=== PATIENT | male | born 1940 | race Caucasian/White ===

== ENCOUNTER → 2020-11-29 00:18 | Outpatient (CLI) | payer MEDICARE, SELFPAY ==
[2020-11-29 18:42] LABS: SARS-CoV-2 RNA PCR Negative
== END ==
PROVIDERS: PCP Family Medicine; Visit Provider Specialist
DX: Z01.812 Encounter for preprocedural laboratory examination (principal); Z20.822 Contact with and (suspected) exposure to COVID-19
CPT/HCPCS: C9803; U0003; U0005

== ENCOUNTER 2020-12-02 00:58 | Day surgery (SDC) | payer MEDICARE, SELFPAY ==
[2020-11-29 14:23] VITALS: BMI 27.8
[2020-12-02] VITALS (26 sets, daily range): BP systolic 128–168; BP diastolic 57–85; PULSE 48–76; RESP 14–20; TEMP 36.1–36.9; O2SAT 94–100; BMI 28.3; BMI 29.4
[2020-12-02 09:03] LABS: Basophils Percent Auto 0.4 % (0.2-1.2); Eosinophils Absolute Auto 0.5 K/mm3 (0-0.3); Eosinophils Percent Auto 6.7 % (0-4.4); Hematocrit 48.1 % (42.0-52.0); Hemoglobin 16.2 g/dL (14.0-18.0); Immature Granulocyte Absolute 0.02 K/mm3 (0.00-0.031); Immature Granulocyte Percent A 0.3 % (0-0.5); Lymphocytes Percent Auto 25.6 % (18.3-44.2); Mean Corpuscular HGB Conc 33.7 g/dl (32-36); Mean Corpuscular Hemoglobin 32.7 pg (26-34); Mean Platelet Volume 9.8 fl (7.4-10.4); Monocytes Percent Auto 13.5 % (2.6-8.5); Neutrophils Percent Auto 53.5 % (45.5-73.1); Platelet Count Result 196 k/mm3 (150-375); Red Blood Count 4.96 M/mm3 (4.6-6.20); Red Cell Distribution Width 12.4 % (11.5-14.5); White Blood Count 7.4 K/mm3 (4.5-10.0)
[2020-12-02 09:12] LABS: Prothrombin Time 13.5 Seconds (11.1-14.7)
[2020-12-02 09:15] LABS: Anion Gap 4 mmol/L (8-16); Blood Urea Nitrogen 21 mg/dL (9-20); Calcium 9.7 mg/dL (8.4-10.2); Carbon Dioxide 29 mmol/L (22-30); Chloride 106 mmol/L (98-107); Estimated CRCL calculation 55 ml/min; Estimated Glomerular Filt Rate > 60; Glucose 104 mg/dL (75-110); Potassium 4.3 mmol/L (3.4-5.0); Sodium 139 mmol/L (137-145)
--- NOTE | 2020-12-02 10:04 | WPDMODSED ---
Moderate Sedation Note-Pt Data Patient Data Diagnosis: Exertional chest pain consistent with angina Coronary artery disease with previous RCA intervention Present Complaint: This is a 80-year-old man with a remote history of right coronary revascularization percutaneously. He was seen in the office recently reporting typical symptoms of exertional angina. Procedure to be performed/Plan: Left heart catheterization Allergies Allergy/AdvReac Type Severity Reaction Status Date / Time cefuroxime Allergy Unknown Unknown Verified 07/03/20 10:08 Home Medications Medication Instructions Recorded Confirmed Type dutasteride 0.5 mg-tamsulosin ER See Rx Instructions .ROUTE 11/06/19 11/29/20 Rx 0.4 mg capsule ext.release 24hr .COMPLEX #90 cap mphas ipratropium bromide 42 mcg (0.06 See Rx Instructions .ROUTE 11/06/19 11/29/20 Rx %) nasal spray .COMPLEX #135 ml amlodipine 5 mg tablet 5 mg PO DAILY 01/01/20 11/29/20 History aspirin 81 mg tablet,delayed 81 mg PO DAILY 01/01/20 11/29/20 History release azelastine 205.5 mcg (0.15 %) 205.5 mcg NASAL DAILY 01/01/20 11/29/20 History nasal spray fluticasone propionate 50 1 spray NASAL DAILY 01/01/20 11/29/20 History mcg/actuation nasal spray,suspension pitavastatin calcium 1 mg tablet 1 mg PO DAILY 01/01/20 11/29/20 History dutasteride 0.5 mg capsule See Rx Instructions .ROUTE 03/26/20 11/29/20 Rx .COMPLEX #90 cap tamsulosin 0.4 mg capsule See Rx Instructions .ROUTE 03/26/20 Rx .COMPLEX #90 cap montelukast 10 mg tablet See Rx Instructions .ROUTE 07/01/20 11/29/20 Rx .COMPLEX #90 tablet L.acidophil-L.casei-B.bifid-B.longum-FOS 1 cap PO DAILY 07/03/20 11/29/20 History 2 billion cell-50 mg capsule metoprolol succinate 25 mg 12.5 mg PO DAILY tablet 07/03/20 11/29/20 History tablet,extended release 24 hr vcuxprtd-yuu-xnvpk acid 300 1 tablet PO DAILY 07/03/20 11/29/20 History mcg-lycopene 600 mcg-lutein 300 mcg tablet pantoprazole 20 mg tablet,delayed 40 mg PO QAM tablet 07/03/20 11/29/20 History release Current Medications: Active Medications Sodium Chloride (Normal Saline Iv) 500 mls @ 100 mls/hr IV CONT .Q5H SILVIANO Sedation/Anesthesia: No previous sedation/anesthesia problems (including family history). [facility] Past Medical History Medical History BPH w/o urinary obs/LUTS CAD in [place] artery Chronic low back pain without sciatica Dyslipidemia Essential (primary) hypertension GERD without esophagitis Heart attack 02/07/2000 Liver cyst 07/2018 Non-seasonal allergic rhinitis Renal cyst Sensorineural hearing loss Vitamin D deficiency Surgical History Surgical History History of coronary artery stent placement (~1999) 1999 History of hernia repair (~1990) 1990 - History of nasal surgery (~2004) 2004 & 05/2019 Hx of cataract surgery (Unknown) Hx of inguinal herniorrhaphy (~1990) 1990 Social History Social History Smoking status: Former smoker Second hand tobacco smoke exposure: No Smoking end date: 07/26/81 Alcohol intake: current Substance use: never Substance use type: does not use Living arrangements: with family Gender identity (if verbalized by the patient): Male Spiritual care concerns: No Mod Sed Physical Exam Physical Exam Pre Procedural Exam: Normal: Appearance, Throat, Airway, Lungs, Heart Size, Heart Rate, Heart Rhythm, Neuro Exam and Extremities Hours since solid foods: 12 Hours since liquid intake: 12 Internal Medicine - PN: Obj Da Vital Signs Vital Signs: Vital Signs - 24 hr 12/02/20 09:04 Temperature 36.1 C L Pulse Rate 48 L Respiratory Rate 16 Blood Pressure 155/67 H Pulse Oximetry 97 Meds/Results Medications: Active Medications Generic Name Dose Route Start Last Admin Trade Name Freq [place]
--- NOTE | 2020-12-02 11:31 | WPDCARDPROC ---
Cardiac Cath Procedure Note Date of procedure:: 12/02/20 Performing physician:: Ernesto Faulkner MD
--- NOTE | 2020-12-02 11:32 | WPDCARDPROC ---
Cardiac Cath Procedure Note Date of procedure:: 12/02/20 Performing physician:: Ernesto Faulkner MD Indication:: history of coronary disease previous PCI symptoms compatible with angina Brief clinical history:: this is a 80-year-old man coronary disease who underwent stenting of the RCA during an emergency procedure 20 years ago. He now has been experiencing exertional symptoms compatible with angina of recent onset. He also has a new left bundle branch block. Stress testing suggested a apical lateral perfusion abnormality. Procedure Procedure performed:: Left ventriculography coronary angiography PCI(LEANNE) to the OM circumflex Sedation/Medication given:: fentanyl 50 mg Versed 2 mg case start time 10:40 a.m. case end time 11:27 a.m. sedation provided by Suly Overton RN, trained observer Access site:: right femoral artery Estimated blood loss:: 20-30 cc Procedure note:: patient was brought to cardiac catheterization lab postabsorptive state the right femoral triangle was prepared and draped fashion. Anesthesia was provided with 1% lidocaine infiltrated locally. Using the modified Seldinger technique a 5 Martiniqu[place] sheath was placed into the femoral artery. After this left heart catheterization was performed. I used a 5 Martiniquais angled pigtail catheter to inject the left ventricle in the LYNN projection to measure left-sided hemodynamics. Following this the left coronary was injected using a standard 5 Martiniqu[place] FL 4 catheter. The right coronary was engaged and injected using a standard 5 [place] JR4 catheter. The cineangiograms were reviewed. Following this PCI of the OM circumflex branch was recommended and carried out as detailed below. Prior to PCI the 5 Martiniquais sheath was changed over the guidewire for a 6 [place] and he was systemically anticoagulated with bolus and infusion of Angiomax. The patient received aspirin and 600 mg of clopidogrel prior to PCI. Following the procedure the sheath was sutured into position he was taken to the holding area for recovery with mild retrosternal chest pressure no other complications there was no evidence of a groin hematoma upon leaving the clinical laboratory director. Findings:: Hemodynamics: Central aortic pressure is 145 over 55 left ventricle 145/0 end-diastolic 15 there is no systolic gradient on pullback across the aortic valve. Left ventricle: The LV is normal in size the inferior segment is modestly hypodynamic the remainder of the LV contracts well the global ejection fraction is 50-55%. The left main coronary artery is short and nicely patent the left anterior descending is a medium caliber artery and extends down to and around the apex there are mild luminal irregularities throughout the LAD but no functionally significant stenosis is identified. Circumflex is a moderate to large caliber artery giving rise to 1 very large marginal branch and posterior branch. The trunk of the circumflex has some calcium but no significant stenosis is identified. Distally at the bifurcation between very large OM branch and the distal terminal portion of the circumflex there is a 80-90% discrete stenosis. The right coronary artery is medium in caliber and dominant to the posterior circulation there is stent material visible in the mid RCA. The vessel has diffuse luminal irregularities throughout but there are no high-grade lesions seen in the RCA. In no segment is there more than 20-30% stenosis. Intervention: The left coronary artery was engaged using a 3 CLS 3.5 guiding catheter. The target lesion was then wired using a 0.014 BMW coronary guidewire. The lesion was pre dilated using a 2.5 x 20 mm emerge balloon. Following this a 3 by 15 mm Orsiro drug-eluting stent was deployed at nominal pressure. The posterior small circumflex branch that takes off in this segment was then is jailed by the stent. I placed a 2nd wire a 0.014 state pilot 150 coronary guidewire into the trunk of the vessel and wa
--- NOTE | 2020-12-02 11:50 | SUR.PHASEII ---
BEGIN PHASE II RECOVERY. RETURNS TO DIRECTOR OF RETAIL MARKETING 4 S/P [facility] W/ PCI. ANGIOMAX GTT DISCONTINUED AT THIS TIME, COMPLETE 1150. HAS 6FR SHEATH INTACT R. GROIN. DRESSING C/D/I. NO BLEEDING OR HEMATOMA NOTED. SITE SOFT, NONTENDER. R. PEDAL PULSE STRONG. VSS. REVIEWED BEDREST ACTIVITY RESTRICTIONS W/ PT. VOICED UNDERSTANDING. IVF'S RUNNING ORDERED. WILL CONTINUE TO MONITOR.
--- NOTE | 2020-12-02 12:50 | ECG_ITS ---
Measurements Intervals [place] Rate: 52 P: 69 VA: 201 QRS: -28 QRSD: 153 T: 73 QT: 477 QTc: 446 Interpretive Statements SINUS BRADYCARDIA VENTRICULAR PREMATURE COMPLEX LEFT BUNDLE BRANCH BLOCK ABNORMAL ECG Electronically Signed On 12-02-2020 13:13:37 CDT by William Cason D.O.
[2020-12-02] MEDS: SODIUM CHLORIDE 0.9% IV 1,000 ML 125 ML IV CONT (14:00)
--- NOTE | 2020-12-02 15:10 | SUR.PHASEII ---
MANUAL 6FR SHEATH PULL PER PROTOCOL BY SETH Byrnes RN AT 1434. FIRM, STEADY PRESSURE HELD TO R. GROIN PUNCTURE SITE UNTIL HEMOSTASIS ACHIEVED. TOLERATED WELL. HEMOSTASIS ACHIEVED AFTER 36 MINUTE MANUAL PRESSURE HOLD TO R. GROIN PUNCTURE SITE. SITE SOFT, NONTENDER. NO BLEEDING OR HEMATOMA NOTED. SITE DRESSED W/ STAT SEAL AND TEGADERM DRESSING. REVIEWED BEDREST ACTIVITY RESTRICTIONS W/ PT AND CARE AND MONITORING OF R. GROIN PUNCTURE SITE. VOICED UNDERSTANDING. BEDREST X 6 HOURS UNTIL 2109 AT THIS TIME. IVF'S RUNNING ORDERED. WILL CONTINUE TO MONITOR.
--- NOTE | 2020-12-02 16:10 | SUR.PHASEII ---
END PHASE II RECOVERY AT THIS TIME. VSS. PT. TO TRANSFER TO IMU 201 FROM [facility]ODUCT [facility]UR[facility]INEER 4 EXTENDED RECOVERY STATUS PT FOR OVERNIGHT STAY. SEE PCS DOCUMENTATION FOR FURTHER CHARTING. PT. AND ARE AWARE OF TRANSFER. NO STATUS CHANGE IN R. GROIN SITE NOTED. R. PEDAL PULSE REMAINS STRONG. BEDREST POST HEMOSTASIS R. GROIN PUNCTURE SITE UNTIL 2109
--- NOTE | 2020-12-02 16:11 | ADMGEN ---
This patient, Oral Bernal, was admitted to EXTENDED RECOVERY POST [facility] W/ PCI AT 1611. REMAINS IN JOB HAND 4 AT THIS TIME. IS TO TRANSFER TO IMU Room 201-01 TO COMPLETE EXTENDED RECOVERY HOSPITAL STAY. Patient/family oriented to hospital policies and general routines including ID bracelet, bed and alarms, visiting hours, pain management, procedures, bathroom and other care routines, personal items, smoking policy, room service/diet, and visiting hours. R. GROIN SITE DRESSING IS C/D/I. NO BLEEDING OR HEMATOMA NOTED. SITE IS SOFT, NONTENDER. VOIDING PER URINAL. IVF'S RUNNING AT 125ML/HR VIA PUMP. BEDREST X 6 HOURS POST HEMOSTASIS UNTIL 2109. AT BEDSIDE Information on how to activate the Rapid Response Team has been discussed. Patient/Family are encouraged to report perceived risks to care and to ask questions if they do not understand what they are told or what they should do.
--- NOTE | 2020-12-02 16:30 | PC.NURSE ---
REPORT CALLED TO ZEHRA Herbert RN IN IMU. PT. IS TO TRANSFER TO IMU 201 FOR DURATION OF EXTENDED RECOVERY STAY.
--- NOTE | 2020-12-02 16:50 | PC.NURSE ---
TRANSFERRED TO IMU 201 VIA BED ON TRANSPORT MONITOR FOR DURATION OF EXTENDED RECOVERY STAY POST LHC W/ PCI. R. GROIN SITE CLEAR AND UNCHANGED. IVF'S CONTINUE. R. PEDAL PULSE PALP STRONG. VSS. R. GROIN SITE OBSERVED W/ ACCEPTING NURSE AT BEDSIDE. PERSONAL BELONGINGS SENT W/ PT.
--- NOTE | 2020-12-02 18:02 | PC.NURSE ---
This patient, Oral Bernal, was received from [facility] 17[facility]03 ] on 12/02/20 at 1802. Patient/family oriented to unit policies and routines
[2020-12-03] VITALS (7 sets, daily range): BP systolic 144–147; BP diastolic 59–61; PULSE 46–64; RESP 16–20; TEMP 36.2–36.3; O2SAT 98
--- NOTE | 2020-12-03 05:11 | ECG_ITS ---
Measurements Intervals [place] Rate: 53 P: 70 [place]: 192 QRS: -30 QRSD: 151 T: 123 QT: 462 QTc: 437 Interpretive Statements SINUS BRADYCARDIA LEFT BUNDLE BRANCH BLOCK BASELINE WANDER- V6 ABNORMAL ECG Electronically Signed On 12-03-2020 9:25:59 CDT by William Cason D.O.
[2020-12-03] MEDS: lisinopriL 5 MG TABLET PO (10:29)
[2020-12-03] MEDS: ROSUVASTATIN 10 MG TABLET PO (10:29)
[2020-12-03] MEDS: CLOPIDOGREL BISULFATE 75 MG TABLET PO (10:29)
--- NOTE | 2020-12-03 10:33 | PM.DS ---
DS: Admitting Diagnosis Admitting Diagnosis Admitting Diagnosis: Angina, abnormal stress test, CAD DS: Discharge Diagnosis Discharge Diagnosis (1) CAD in [place] artery: Code(s): I25.10 - Atherosclerotic heart disease of [place] coronary artery without angina pectoris Status: Acute (2) Dyslipidemia: Code(s): E78.5 - Hyperlipidemia, unspecified Status: Acute (3) Essential (primary) hypertension: Code(s): I10 - Essential (primary) hypertension Status: Acute DS: Summary Hospital Course Reason for hospitalization: Abnormal stress test Hospital Course: 80-year-old male with a known history of CAD. He had been having anginal-type symptoms and stress test was performed which was abnormal for inferolateral and apical lateral ischemia. He underwent a cardiac catheterization showing and OM stenosis which was successfully stented. There was jailing of a small branch artery. This was wired and attempted POBA however balloon could not be advanced. He stated an overnight without any complications and was otherwise feeling okay at discharge. He was denying any chest pain, shortness of breath, groin pain. Status at Discharge Cognitive/behavioral status at discharge: None Functional status at discharge: independent ambulation Overall status at discharge: patient is back to baseline Time Spent with Patient Time attestation: Total time spent providing and/or coordinating discharge services: 35 minutes Time spent: Greater than 30 minutes Exam Narrative: Exam Narrative: Alert oriented Const: General: comfortable and no acute distress HENMT: General nose exam: Normal nares present Eyes: Sclera: sclerae normal Neck: Neck: supple and no JVD Resp: Auscultation: clear to auscultation bilaterally Cardio: Rate: regular rate Rhythm: regular rhythm GI: GI Palp: Yes Soft to palpation Skin: General skin exam: normal color Neuro: Motor exam (neuro): Normal motor muscle tone present throughout Extrem: General: normal to inspection and no edema Other: Right groin is free of hematoma ecchymosis or bruit. Bandage removed Psych: Mental Status: mental status grossly normal DS: Data Data Completed and Pending Completed studies during hospitalization: Findings:: Hemodynamics: Central aortic pressure is 145 over 55 left ventricle 145/0 end-diastolic 15 there is no systolic gradient on pullback across the aortic valve. Left ventricle: The LV is normal in size the inferior segment is modestly hypodynamic the remainder of the LV contracts well the global ejection fraction is 50-55%. The left main coronary artery is short and nicely patent the left anterior descending is a medium caliber artery and extends down to and around the apex there are mild luminal irregularities throughout the LAD but no functionally significant stenosis is identified. Circumflex is a moderate to large caliber artery giving rise to 1 very large marginal branch and posterior branch. The trunk of the circumflex has some calcium but no significant stenosis is identified. Distally at the bifurcation between very large OM branch and the distal terminal portion of the circumflex there is a 80-90% discrete stenosis. The right coronary artery is medium in caliber and dominant to the posterior circulation there is stent material visible in the mid RCA. The vessel has diffuse luminal irregularities throughout but there are no high-grade lesions seen in the RCA. In no segment is there more than 20-30% stenosis. Intervention: The left coronary artery was engaged using a 3 CLS 3.5 guiding catheter. The target lesion was then wired using a 0.014 BMW coronary guidewire. The lesion was pre dilated using a 2.5 x 20 mm emerge balloon. Following this a 3 by 15 mm Orsiro drug-eluting stent was deployed at nominal pressure. The posterior small circumflex branch that takes off in this segment was then is jailed by the stent. I placed a 2
[2020-12-03] MEDS: ASPIRIN 81 MG CHEWABLE TABLET PO (10:34)
--- NOTE | 2020-12-03 12:52 | PCCPR ---
Card[facility] Services flyer was given to patient with discharge paperwork.
--- NOTE | 2020-12-03 13:14 | PC.NURSE ---
Upon breaking down chart after discharge, Marisa found the followup appointment paper printed by Cardiology. I called the patients , Ju, and told her the date and time and informed her that we will be mailing the paper copy to their home. Marisa mailed paper copy.
== END 2020-12-03 12:10 | disposition home or self-care (01) ==
LOC: ANHCATHLAB 14:27 → ANHIMU 16:35
PROVIDERS: PCP Family Medicine; Visit Provider Specialist
PROC: 4A023N7 Measurement of Cardiac Sampling and Pressure, Left Heart, Percutaneous Approach (ICD-10-PCS; CPT 93452; principal; 2020-12-02 10:00)
PROC: (CPT 92928; 2020-12-02 10:00)
DX: R07.9 Chest pain, unspecified (principal); I44.7 Left bundle-branch block, unspecified; I25.10 Atherosclerotic heart disease of native coronary artery without angina pectoris; T82.897A Other specified complication of cardiac prosthetic devices, implants and grafts, initial encounter; Y83.8 Other surgical procedures as the cause of abnormal reaction of the patient, or of later complication, without mention of misadventure at the time of the procedure; Z95.5 Presence of coronary angioplasty implant and graft; R94.39 Abnormal result of other cardiovascular function study; I25.2 Old myocardial infarction; E78.5 Hyperlipidemia, unspecified; I10 Essential (primary) hypertension; N40.0 Benign prostatic hyperplasia without lower urinary tract symptoms; K21.9 Gastro-esophageal reflux disease without esophagitis; E55.9 Vitamin D deficiency, unspecified; Z87.891 Personal history of nicotine dependence; Z79.82 Long term (current) use of aspirin
CPT/HCPCS: 36415; 80048; 85025; 85610; 93005; 93458; A9270; C1725; C1769; C1874; C1887; C1894; C9600; C9803; J0583; J1644; J2250; J3010; J7030; J7040; U0003; U0005

== ENCOUNTER 2021-01-24 14:49 | Observation (INO) | payer MEDICARE, SELFPAY ==
[2021-01-24] VITALS (10 sets, daily range): BP systolic 123–150; BP diastolic 61–80; PULSE 48–78; RESP 15–27; TEMP 36.4–37; O2SAT 95–100; BMI 27.8
--- NOTE | ~2021-01-24 | CT_ITS ---
EXAMINATION: CT chest abdomen w con INDICATION: Shortness of breath on exertion TECHNIQUE: Computed tomographic images of the chest and abdomen were obtained after the administratio n of 100 cc of Omnipaque 350 intravenous contrast. The dose-length product (DLP) was 501.61 mGy-cm. A utomated exposure control and iterative reconstruction technique were employed. COMPARISON: 02/22/2019 FINDINGS: Chest: There is a stable 3 mm nodule of the left lower lobe. Small nodules associated with the left m ajor fissure likely reflect fissural lymph nodes. There is atelectasis of the lung bases. No pleural effusion or pneumothorax is identified. No pathologically enlarged thoracic lymph nodes are identifie d. The heart size is normal. There is moderate thoracic spondylosis. There is elevation of the right hemidiaphragm. ABDOMEN: There are innumerable cysts of the kidneys and liver. The spleen, pancreas, gallbladder, and adrenal glands are normal. There are no pathologically enlarged abdominal lymph nodes. There is no f ree intraperitoneal gas or evidence of bowel obstruction. Calcified and noncalcified atherosclerosis is noted. There is a fat-containing umbilical hernia. There is mild lumbar spondylosis. IMPRESSION: 1. Mild atelectasis. 2. Polycystic kidney disease. Reviewed, dictated and finalized at location A.
--- NOTE | ~2021-01-24 | XR_ITS ---
EXAMINATION: XR chest 2V DATE: 01/24/2021 15:18 INDICATION: Left-sided chest pain TECHNIQUE: PA and lateral views of the chest are obtained. COMPARISON: 07/17/2014 FINDINGS: The lungs are free of acute opacities. There is chronic mild elevation of the right hemidia phragm. There is no pleural effusion or pneumothorax. The cardiomediastinal silhouette is normal. The re is mild thoracic spondylosis. There is S-shaped curvature of the spine. Healed right-sided rib fra ctures are noted. An electronic device has been inserted in to the subcutaneous tissues of the anteri or left upper chest wall. IMPRESSION: 1. No acute cardiopulmonary abnormality. Reviewed, dictated and finalized at location B.
--- NOTE | 2021-01-24 14:50 | ECG_ITS ---
Measurements Intervals [place] Rate: 55 P: 56 RI: 184 QRS: -31 QRSD: 150 T: 131 QT: 420 QTc: 405 Interpretive Statements SINUS BRADYCARDIA LEFT AXIS DEVIATION LEFT BUNDLE BRANCH BLOCK ANTEROSEPTAL INFARCT OR DUE TO LBBB ABNORMAL ECG Electronically Signed On 01-24-2021 15:45:49 CDT by William Cason D.O.
[2021-01-24 15:10] LABS: Basophils Percent Auto 0.2 % (0.2-1.2); Eosinophils Absolute Auto 0.3 K/mm3 (0-0.3); Eosinophils Percent Auto 3.1 % (0-4.4); Hematocrit 47.3 % (42.0-52.0); Immature Granulocyte Absolute 0.03 K/mm3 (0.00-0.031); Immature Granulocyte Percent A 0.3 % (0-0.5); Lymphocytes Absolute Auto 1.88 K/mm3 (0.9-3.2); Lymphocytes Percent Auto 20.8 % (18.3-44.2); Mean Corpuscular HGB Conc 33.8 g/dl (32-36); Mean Corpuscular Hemoglobin 32.9 pg (26-34); Mean Corpuscular Volume 97.1 fl (80-100); Mean Platelet Volume 10.1 fl (7.4-10.4); Monocytes Percent Auto 11.3 % (2.6-8.5); Neutrophils Absolute Auto 5.8 K/mm3 (1.3-6.7); Neutrophils Percent Auto 64.3 % (45.5-73.1); Platelet Count Result 185 k/mm3 (150-375); Red Blood Count 4.87 M/mm3 (4.6-6.20); Red Cell Distribution Width 12.6 % (11.5-14.5); White Blood Count 9.1 K/mm3 (4.5-10.0)
[2021-01-24 15:22] LABS: Anion Gap 10 mmol/L (8-16); Blood Urea Nitrogen 18 mg/dL (9-20); Calcium 10.1 mg/dL (8.4-10.2); Carbon Dioxide 24 mmol/L (22-30); Chloride 107 mmol/L (98-107); Estimated CRCL calculation 55 ml/min; Estimated Glomerular Filt Rate > 60; Glucose 102 mg/dL (75-110); Partial Thromboplastin Time 31.4 SECONDS (22.3-36.8); Potassium 4.2 mmol/L (3.4-5.0); Sodium 141 mmol/L (137-145)
[2021-01-24 15:33] LABS: Troponin I < 0.012 ng/mL (0.000-0.034)
--- NOTE | 2021-01-24 17:01 | ED.GENADULT ---
HPI - General Adult General Chief complaint: Arrhythmia/Palpitations Stated complaint: PALPATATIONS Time Seen by Provider: 01/24/21 16:05 Source: patient, family and RN notes reviewed Limitations: no limitations History of Present Illness HPI narrative: Patient is 80 years old white male presented to the ED with shortness of breath on exertion, and feeling weak all over started at 10 AM today. Patient reports intermittent feeling funny at the left chest. 48 hours ago patient had fast heartbeat lasted for about 2 hours, went to Dr. Faulkner office yesterday and had Holter monitor installation. Patient had cardiac cath November 2020, blocked coronary stent, used to be on aspirin, Plavix was added. Currently patient denying any fever, chills, nausea, vomiting, chest pain, shortness of breath as long as laying down in bed. Patient been fully vaccinated for COVID-19. Related Data Home Medications Medication Instructions Recorded Confirmed aspirin 81 mg tablet,delayed 81 mg PO DAILY 01/01/20 01/15/21 release L.acidophil-L.casei-B.bifid-B.longum-FOS 1 cap PO DAILY 07/03/20 01/15/21 2 billion cell-50 mg capsule metoprolol succinate 25 mg 25 mg PO DAILY tablet 07/03/20 01/15/21 tablet,extended release 24 hr azelastine 1 spray INTRANASAL Q12H PRN 12/02/20 01/15/21 fluticasone propionate [Allergy 1 spray INTRANASAL DAILY PRN 12/02/20 01/15/21 Relief (fluticasone)] dutasteride 0.5 mg capsule 0.5 mg PO DAILY 01/15/21 01/15/21 nitroglycerin 0.4 mg sublingual 0.4 mg SUBLINGUAL Q5M PRN 01/15/21 01/15/21 tablet pantoprazole 40 mg tablet,delayed 40 mg PO QAM 01/15/21 01/15/21 release tamsulosin 0.4 mg capsule 0.4 mg PO DAILY 01/15/21 01/15/21 Allergies Allergy/AdvReac Type Severity Reaction Status Date / Time cefuroxime Allergy Unknown Unknown Verified 01/24/21 15:35 Review of Systems Review of Systems: Narrative: CONSTITUTIONAL: Denies fever, chills, or sweats. EYES: Denies visual changes, redness, or discharge. ENT: Denies rhinorrhea, congestion, sore throat, or otalgia. CARDIOVASCULAR: Denies chest pain, palpitations, or edema. RESPIRATORY: Denies cough or dyspnea. GASTROINTESTINAL: Denies abdominal pain, nausea, vomiting, or diarrhea. GENITOURINARY: Denies dysuria or hematuria. SKIN: Denies rash or itching. MUSCULOSKELETAL: Denies back pain, joint pain, or myalgia. NEUROLOGIC: Denies headache, numbness, or weakness. PSYCHIATRIC: Denies anxiety or depression. PMFSH Past Medical History Medical History BPH w/o urinary obs/LUTS CAD in [place] artery Chronic low back pain without sciatica Dyslipidemia Essential (primary) hypertension GERD without esophagitis Heart attack 02/07/2000 Liver cyst 07/2018 Non-seasonal allergic rhinitis Renal cyst Sensorineural hearing loss Vitamin D deficiency Surgical History Surgical History History of coronary artery stent placement (~1999) 1999 History of hernia repair (~1990) 1990 - triple History of nasal surgery (~2004) 2004 & 05/2019 Hx of cataract surgery (Unknown) Hx of inguinal herniorrhaphy (~1990) 1990 Stented coronary artery (~2020) Family History Family History Mother Hypertension Sibling Coronary artery disease Hypercholesteremia Social History Social History Smoking packs per day: 1 Smoking cigarettes per day: 20.0 Years smoked: 20 Smoking pack-years: 20.00 Smoking status: Former smoker Second hand tobacco smoke exposure: No Smoking end date: 07/26/81 Alcohol intake: current Substance use: never Substance use type: does not use Gender identity (if verbalized by the patient): Male Spiritual care concerns: No Exam Narrative: Exam Narrative: General appearance: Well-developed, well-nourished Skin: Normal color Derek
[2021-01-24 17:11] LABS: Alveolar/Arterial O2 Gradient 33.7 mmHg; Base Excess ABG -1.1 mEq/l (+/-2.0); Device ROOM AIR; Fractional Inspired Oxygen 21 %; HCO3 ABG 21.7 mEq/l (22.0-26.0); Modified Allen's Test Pass; Oxygen Content ABG 21.6 %vol (16.0-22.0); Oxygen Saturation ABG 96.2 % (95.0-100.0); Oxyhemoglobin 95.2 % THb (90.0-100.0); PCO2 ABG 31.7 mmHg (35.0-45.0); PO2 ABG 78.1 mmHg (80.0-100.0); PO2 FiO2 Ratio Arterial Blood 3.72 %; Site Drawn LEFT RADIAL; Total Hemoglobin 16.1 g/dL (12.0-18.0); pH ABG 7.454 (7.350-7.450)
[2021-01-24 17:50] LABS: Add Urine Microscopic? YES; Appearance Urine Clear (Clear); Bilirubin Urine Negative (Negative); Blood Urine Negative (Negative); Color Urine Yellow (Yellow); Glucose Urine UA Negative (Negative); Ketones Urine Negative (Negative); Leukocyte Esterase Ur Negative LEU/UL (Negative); Nitrate Urine Negative (Negative); Protein Urine Negative (Negative); RBC Urine 0-2 /hpf (0-2); Specific Grav Ur 1.014 (1.001-1.035); Urobilinogen Urine Negative mg/dL (<2.0)
[2021-01-24 17:51] LABS: D Dimer 0.47 ug/mL (<0.48)
--- NOTE | 2021-01-24 18:17 | PC.NURSE ---
Ordered a dietary tray for the pt at this time per pt request.
--- NOTE | 2021-01-24 18:59 | ADMGEN ---
This patient, Oral Bernal, was admitted to IMU Room 232-01 at 1855. Patient/family oriented to hospital policies and general routines including ID bracelet, bed and alarms, visiting hours, pain management, procedures, bathroom and other care routines, personal items, smoking policy, room service/diet, and visiting hours. Information on how to activate the Rapid Response Team has been discussed. Patient/Family are encouraged to report perceived risks to care and to ask questions if they do not understand what they are told or what they should do.
[2021-01-24 19:36] LABS: Troponin I < 0.012 ng/mL (0.000-0.034)
[2021-01-24 22:12] LABS: Troponin I < 0.012 ng/mL (0.000-0.034)
--- NOTE | 2021-01-24 23:24 | PM.IMHP ---
H&P: HPI History of Present Illness Date/Time: 01/24/21 23:24Thidolores is a 80-year-old male patient who was just discharged from this hospital on 12/03/2020 per Cardiology. The patient has a history of having a total of 4 Cardiac stents altogether. the patient was found have a high-grade stenosis of 80-90% the trunk to the circumflex leading into the very large OM branch. List lesions was successfully treated using the 3 x 15 mm drug-eluting stent on 12/03/2020. The patient stated he felt fine when he went home but then 2 days ago he started to have palpitations and a racing heart he did notify Cardiology and they gave him a Holter monitor. today the patient stated he was fixing missing with minimal exertion and it became short of breath some chest pressure and sob. The patient stated that he did have a pft in th past and was told that it was a low normal and prescribed symbicort which the past stated he stopped several months ago because he felt that it was making his heart race.He stated that he has never had a sleep study but snores loudly at night.The patient continues to wear the holter monitor. chest x ray shows no acute cardiopulmonary abnormality. D-dimer was negative. cardiology has been consulted. The patient was admitted to observation status on the date of service of 01/24/2021. Chief Complaint: Shortness of breath with exertion Review of Systems Review of Systems: All systems reviewed & are unremarkable except as noted in HPI and below Constitutional: Constitutional: Reports as per HPI and Reports no additional constitutional complaints Eyes: Eyes: Reports as per HPI and Reports no additional eye complaints ENT: Reports system reviewed and no additional complaints, except as documented and Reports Normal hearing present Cardiovascular: Cardiovascular: Reports no additional cardiovascular complaints Respiratory: Respiratory: Reports no additional respiratory complaints and Reports no additional respiratory complaints Gastrointestinal: Gastrointestinal: Reports as per HPI and Reports no additional gastrointestinal complaints Musculoskeletal: Musculoskeletal: Reports no additional musculoskeletal complaints Integumentary/Breasts: Skin/Breast: Reports system reviewed and no additional complaints, except as docu and Reports as per HPI Neurologic: Reports system reviewed and no additional complaints, except as documented, Reports as per HPI and Reports Normal hearing present Psychiatric: Psychiatric: Reports no additional psychiatric complaints and Reports as per HPI Endocrine: Endocrine: Reports no additional endocrine complaints Hematologic/Lymphatic: Hematologic/Lymphatic: Reports no additional hematologic/lymphatic complaints Allergic/Immunologic: Allergic/Immunologic: Reports no additional allergic/immunologic complaints PMFSH Past Medical History Medical History BPH w/o urinary obs/LUTS CAD in [place] artery Chronic low back pain without sciatica Dyslipidemia Essential (primary) hypertension GERD without esophagitis Heart attack 02/07/2000 Liver cyst 07/2018 Non-seasonal allergic rhinitis Renal cyst Sensorineural hearing loss Vitamin D deficiency Surgical History Surgical History History of coronary artery stent placement (~1999) 1999 History of hernia repair (~1990) 1990 - History of nasal surgery (~2004) 2004 & 05/2019 Hx of cataract surgery (Unknown) Hx of inguinal herniorrhaphy (~1990) 1990 Stented coronary artery (~2020) Family History Family History Mother Hypertension Sibling Coronary artery disease Hypercholesteremia Social History Social History (Updated 01/24/21 @ 23:39 by Charla Schwarz NP) Social History: The patient lives with his who is a durable power mushroom press operator for healthcare. The patient desires
[2021-01-25] VITALS (7 sets, daily range): BP systolic 121–142; BP diastolic 60–67; PULSE 45–71; RESP 18–20; TEMP 36.3–37.1; O2SAT 96–100
--- NOTE | 2021-01-25 | ECHO_ITS ---
Patient Info Name: Oral Bernal Age: 80 years : 1940 Gender: Male Ht: 70 in Wt: 194 lbs BSA: 2.10 m2 HR: 68 bpm BP: 121 / 62 mmHg Heart Rhythm: Sinus Rhythm Technical Quality: Good Exam Date: 01/25/2021 8:17 AM [facility]am [facility] Room: 232 Patient Status: Inpatient Admit Date: 01/24/2021 Staff Ordering Physician: Charla Schwarz NP Inspector Experimental Assembly: Ju Sarmiento RDCS Attending Provider: Tiago Sterling MD Referring Physician: Karishma GRANT; Exam Type: CA echo doppler color flow Study Info Indications - chest pressure sob Complete two-dimensional, color flow and Doppler transthoracic echocardiogram is performed. Summary 1. Complete two-dimensional, color flow and Doppler transthoracic echocardiogram is performed. 2. Left ventricular systolic function is mildly reduced, estimated at 40-45%. 3. There is mild concentric increased left ventricular wall thickness. 4. The left ventricular diastolic function is grade I diastolic dysfunction. 5. Left atrial chamber dimension is mildly enlarged. 6. No significant valvular abnormality. Left Ventricle Left ventricular chamber dimension is normal. Left ventricular systolic function is mildly reduced, estimated at 40-45%. There is mild concentric increased left ventricular wall thickness. Left ventricular septal wall motion is abnormal with septal motion related to bundle branch block. The left ventricular diastolic function is grade I diastolic dysfunction. Right Ventricle Right ventricular chamber dimension is normal. Left Atria Left atrial chamber dimension is mildly enlarged. Right Atria Right atrial chamber dimension is normal. Aortic Valve The aortic valve is normal. Pulmonic Valve The pulmonic valve is not well visualized. Mitral Valve The mitral valve has normal leaflets. There is trace mitral valve regurgitation. Tricuspid Valve The tricuspid valve leaflets are normal. Pericardium/Pleural The pericardium appears normal. Aorta The aortic root size at the sinus of Valsalva is normal. Left Ventricular Outflow Tract Name Value Normal LVOT 2D LVOT Diameter 2.2 cm LVOT Doppler LVOT Peak Gradient 2 mmHg LVOT Mean Gradient 2 mmHg LVOT VTI 21 cm LVOT VTI/AV VTI Ratio 0.7 LVOT Stroke Volume 78 ml LVOT CO 13.8 l/min LVOT CI 6.6 l/min/m2 Pulmonic Valve Name Value Normal PV Doppler PV Peak Gradient 3 mmHg Mitral Valve Name Value Normal
[2021-01-25 05:48] LABS: Basophils Percent Auto 0.3 % (0.2-1.2); Eosinophils Absolute Auto 0.6 K/mm3 (0-0.3); Eosinophils Percent Auto 6.4 % (0-4.4); Hematocrit 45.6 % (42.0-52.0); Hemoglobin 15.1 g/dL (14.0-18.0); Immature Granulocyte Absolute 0.02 K/mm3 (0.00-0.031); Immature Granulocyte Percent A 0.2 % (0-0.5); Lymphocytes Absolute Auto 1.74 K/mm3 (0.9-3.2); Lymphocytes Percent Auto 20.1 % (18.3-44.2); Mean Corpuscular HGB Conc 33.1 g/dl (32-36); Mean Corpuscular Volume 99.6 fl (80-100); Mean Platelet Volume 9.9 fl (7.4-10.4); Monocytes Absolute Auto 1.4 K/mm3 (0.1-0.6); Monocytes Percent Auto 15.9 % (2.6-8.5); Neutrophils Absolute Auto 4.9 K/mm3 (1.3-6.7); Neutrophils Percent Auto 57.1 % (45.5-73.1); Platelet Count Result 168 k/mm3 (150-375); Red Blood Count 4.58 M/mm3 (4.6-6.20); Red Cell Distribution Width 12.6 % (11.5-14.5); White Blood Count 8.6 K/mm3 (4.5-10.0)
[2021-01-25 06:08] LABS: Alanine Aminotransferase 15 U/L (4-50); Albumin Level 3.9 g/dL (3.5-5.1); Alkaline Phosphatase 56 U/L (38-126); Anion Gap 8 mmol/L (8-16); Aspartate Amino Transferase 26 U/L (17-59); Bilirubin,Total 0.6 mg/dL (0.2-1.3); Blood Urea Nitrogen 17 mg/dL (9-20); Calcium 9.6 mg/dL (8.4-10.2); Carbon Dioxide 27 mmol/L (22-30); Chloride 106 mmol/L (98-107); Estimated CRCL calculation 55 ml/min; Estimated Glomerular Filt Rate > 60; Glucose 95 mg/dL (75-110); Lipase 96 U/L (23-300); Magnesium 2.1 mg/dL (1.6-2.3); Potassium 4.7 mmol/L (3.4-5.0); Sodium 141 mmol/L (137-145)
[2021-01-25 06:54] LABS: Thyroid Stimulating Hormone Reflex 0.804 uIU/mL (0.465-4.68)
[2021-01-25] MEDS: ACIDOPHILUS/BULGARICUS CHEWABLE TABLET 1 TABLET BY MOUTH (08:16)
[2021-01-25] MEDS: ASPIRIN 81 MG CHEWABLE TABLET PO (08:17)
[2021-01-25] MEDS: CLOPIDOGREL BISULFATE 75 MG TABLET PO (08:18)
[2021-01-25] MEDS: DUTASTERIDE 0.5 MG CAPSULE PO (08:19)
[2021-01-25] MEDS: lisinopriL 10 MG TABLET PO (08:20)
[2021-01-25] MEDS: MONTELUKAST SODIUM 10 MG TABLET PO (08:26)
[2021-01-25] MEDS: OPTI-GEN TAB 1 TABLET PO (08:27)
[2021-01-25] MEDS: ROSUVASTATIN 10 MG TABLET PO (08:27)
[2021-01-25] MEDS: TAMSULOSIN HCL 0.4 MG CAPSULE PO (08:30)
--- NOTE | 2021-01-25 12:11 | PM.CNCAR ---
Assessment and Plan Additional Plan symptoms of generalized weakness and lack of energy of uncertain etiology. This is a gentleman with recent catheterization with a new high-grade lesion in his circumflex which was effectively treated with the drug-eluting stent. His ischemic symptomatology has totally resolved and has not recurred. Despite these complaints that he is coming in with there is no difficulty with oxygenation or is vital signs there is no physical exam or chest x-ray evidence of pulmonary congestion. I told the patient we can try shifting him from the MIRIAN-inhibitor back to his amlodipine for his blood pressure although I do not have a exact reason why that should be causing much difficulty like this. I told him that for now we would like to stick with the rosuvastatin and the clopidogrel is mandatory given the recency of his intervention. In addition to this is stated above he is wearing a Holter monitor device that I started as an outpatient because he has some intermittent symptoms of palpitations. In the hospital, on telemetry there have been no arrhythmias of any kind identified. I believe he can be discharged safely for outpatient follow-up of these issues. Ernesto Faulkner MD [facility] History of Present Illness History of Present Illness Consult date/time: 01/25/21 12:11 Reason For Visit: Dyspnea on exertion, chest pain, palpitation Narrative: This is a 80-year-old man who I is known well to me with history of coronary artery disease who presented to the hospital yesterday with symptoms of generalized weakness fatigue as well as a subjective sense of some shortness of breath. He came to the emergency room and there were no significant abnormalities identified he was nevertheless admitted to the hospital for observation /evaluation. He reports to be having no symptoms this morning while he is at bed rest. The patient is not having any chest pain pressure or heaviness he has no sense of orthopnea PND or edema. He has a history of coronary artery disease dating back to January of 2000 at which time he underwent a percutaneous stenting procedure of the right coronary artery. He had done very well since then and had had any recurrent ischemic problems in a long time. He presented to our office in November of this year with reporting symptoms of exertional anginal-type nature. He had a catheterization done on 12/02/2020 which demonstrated his right coronary artery to be nicely patent but he had a new high-grade stenosis in the mid to distal circumflex leading into a large OM2 branch which was his largest marginal. This lesion was treated successfully using a Moniiro drug-eluting stent with a nice anatomical result. Small distal circumflex branch was jailed by that stent which was a very small side branch. The patient had resolution of his ischemic chest pain symptoms following that procedure and did well. He was placed on dual anti-platelet therapy with in the form of aspirin and clopidogrel. He had his anti hypertensive regimen shifted from amlodipine to lisinopril at that time. I saw him in the office in follow-up on 12/17/2020 at which time he was doing well. He started cardiac rehab last week he has had 3 or 4 sessions of that and states that he has had no problems doing rehab. Despite all of this he says that he came to the emergency room last night reporting is the sense of extreme weakness and easy fatigability. His oxygenation is normal his chest x-ray looks completely clear his vital signs are also normal. He was suspicious that maybe some of his new medications are responsible for the symptoms. His only new medications would be the addition of clopidogrel to his regimen as well as shifting him from amlodipine to lisinopril. The other change that was made in the hospital was we shifted in from Livalo 2 rosuvastatin for his anti lipid agent for more aggressive treatment of that since he did have some obvious progression in his coronary d
--- NOTE | 2021-01-25 14:03 | PM.DS ---
DS: Admitting Diagnosis Admitting Diagnosis Admitting Diagnosis: (1) LEA (dyspnea on exertion): Code(s): R06.00 - Dyspnea, unspecified Status: Acute Assessment and Plan: Patient's D-dimer was negative so was not followed up with a CT a pulmonary. However did offer a CT of the chest to rule out any pulmonary origin. The patient stated he short of breath with exertion with minimal exertion. The patient stated he did have a pulmonary function test and was prescribed a Symbicort in the past however he has not used it in several months. The patient may consider following back up with his supervisor diagnostic. Also we discussed about possibly getting a sleep study for possible obstructive sleep apnea. The patient stated when he exerted himself minimally he became very fatigued with shortness of breath. Cardiology has been consulted. The patient recently had a cardiac stent. (2) Chest pain at rest: Code(s): R07.9 - Chest pain, unspecified Status: Acute Assessment and Plan: Patient recently had a cardiac stent on his last admission. Patient also had palpitations 2 days ago and was placed on a glaze wiper. I could not find a recent echo. An echo has been ordered. Chest an abdomen CT was ordered as well. The patient remains on Crestor. (3) Palpitation: Code(s): R00.2 - Palpitations Status: Acute Assessment and Plan: patient has a glaze wiper on. Patient is sinus bradycardia at this time. the patient has been on metoprolol. (4) Essential (primary) hypertension: Code(s): I10 - Essential (primary) hypertension Status: Acute Assessment and Plan: Continue with lisinopril and metoprolol (5) BPH w/o urinary obs/LUTS: Code(s): N40.0 - Benign prostatic hyperplasia without lower urinary tract symptoms Status: Acute Assessment and Plan: Continue with Avodart and Flomax. DS: Discharge Diagnosis Discharge Diagnosis (1) LEA (dyspnea on exertion): Code(s): R06.00 - Dyspnea, unspecified Status: Acute Assessment and Plan: Patient's D-dimer was negative so was not followed up with a CT a pulmonary. However did offer a CT of the chest to rule out any pulmonary origin. The patient stated he short of breath with exertion with minimal exertion. The patient stated he did have a pulmonary function test and was prescribed a Symbicort in the past however he has not used it in several months. The patient may consider following back up with his supervisor diagnostic. Also we discussed about possibly getting a sleep study for possible obstructive sleep apnea. The patient stated when he exerted himself minimally he became very fatigued with shortness of breath. Cardiology has been consulted. The patient recently had a cardiac stent. (2) Chest pain at rest: Code(s): R07.9 - Chest pain, unspecified Status: Acute Assessment and Plan: Patient recently had a cardiac stent on his last admission. Patient also had palpitations 2 days ago and was placed on a glaze wiper. I could not find a recent echo. An echo has been ordered. Chest an abdomen CT was ordered as well. The patient remains on Crestor. (3) Palpitation: Code(s): R00.2 - Palpitations Status: Acute Assessment and Plan: patient has a glaze wiper on. Patient is sinus bradycardia at this time. the patient has been on metoprolol. (4) Essential (primary) hypertension: Code(s): I10 - Essential (primary) hypertension Status: Acute Assessment and Plan: Continue with lisinopril and metoprolol (5) BPH w/o urinary obs/LUTS: Code(s): N40.0 - Benign prostatic hyperplasia without lower urinary tract symptoms Status: Acute Assessment and Plan: Continue with Avodart and Flomax. DS: Summary Hospital Course Reason for hospitalization: DECREASED STAMINA Hospital Course: This is a 80-year-old male patient who
== END 2021-01-25 15:00 | disposition home or self-care (01) ==
LOC: ANHED 17:59 → ANHIMU 18:16
PROVIDERS: Nurse Practitioner; Admitting Provider Internal Medicine; Emergency Provider Emergency Medicine; PCP Family Medicine; Visit Provider Internal Medicine
DX: R06.09 Other forms of dyspnea (principal); R07.9 Chest pain, unspecified; R00.2 Palpitations; I10 Essential (primary) hypertension; N40.0 Benign prostatic hyperplasia without lower urinary tract symptoms; R53.1 Weakness; I25.10 Atherosclerotic heart disease of native coronary artery without angina pectoris; M54.5 Low back pain; R94.31 Abnormal electrocardiogram [ECG] [EKG]; E78.5 Hyperlipidemia, unspecified; K21.9 Gastro-esophageal reflux disease without esophagitis; K76.89 Other specified diseases of liver; I25.2 Old myocardial infarction; N28.1 Cyst of kidney, acquired; H90.3 Sensorineural hearing loss, bilateral; E55.9 Vitamin D deficiency, unspecified; Z82.49 Family history of ischemic heart disease and other diseases of the circulatory system; Z87.891 Personal history of nicotine dependence; Z79.82 Long term (current) use of aspirin; Z79.02 Long term (current) use of antithrombotics/antiplatelets; Z79.899 Other long term (current) drug therapy; Z95.5 Presence of coronary angioplasty implant and graft; Z79.83 Long term (current) use of bisphosphonates
CPT/HCPCS: 36415; 36600; 71046; 71260; 74160; 80048; 80053; 81001; 82805; 83690; 83735; 84443; 84484; 85025; 85380; 85610; 85730; 93005; 93306; 99285; A9270; G0378; Q9967

== ENCOUNTER 2021-01-28 14:53 | Outpatient (CLI) | payer MEDICARE, SELFPAY ==
--- NOTE | ~2021-01-28 | XR_ITS ---
XR sinus min 3V DATE: 01/28/2021 15:22 INDICATION: Right sided head pressure, pain TECHNIQUE: 5 views COMPARISON: None FINDINGS: The paranasal sinuses and mastoid air cells are normally developed and aerated. Normal sella turcica. Incidental finding of moderately severe degenerative disc disease at C4-5 and severe degenerative dis c disease at C5-6. IMPRESSION: Normal development and aeration of the paranasal sinuses and mastoid air cells Reviewed, dictated and finalized at location A. IMPRESSION: Normal development and aeration of the paranasal sinuses and mastoi d air cells
== END 2021-01-28 14:54 | disposition home or self-care (01) ==
LOC: ANHIMG 14:55
PROVIDERS: PCP Family Medicine; Visit Provider Family Medicine
DX: J30.89 Other allergic rhinitis (principal); R09.89 Other specified symptoms and signs involving the circulatory and respiratory systems
CPT/HCPCS: 70220

== ENCOUNTER 2021-02-25 10:54 | Outpatient (CLI) | payer MEDICARE, SELFPAY ==
[2021-03-24 12:46] VITALS: BMI 28.3
--- NOTE | 2021-03-24 12:46 | WPDSLEEPSTUD ---
Sleep Study Date of Study: 02/25/21 Ordering Provider: Shania Nelson MD Interpreting Physician: Xi Kohler MD Sleep Study Type: Polysomnogram Height: 1.78 m Weight: 89.358 kg Body Mass Index: 28.3 Neck Circumference (inches): 17 [place]: 4 Reason for Sleep Study Daytime fatigue, even with 7-8 hours of sleep Sleep History Oral Bernal is a 80 year old man who complains of daytime fatigue no matter how much sleep he gets even 7 to 8 hours. He rarely awakens from sleep feeling short of breath. He does not awaken at night with heartburn, belching or coughing. He rarely snores only when he has nasal congestion. He rarely snores loudly. He rarely has trouble sleeping with a cold. He does not gasp for breath at night or have breathing problems at night observed by others. He rarely sweats excessively at night. He rarely notices his heart pounding or beating irregularly at night. He does not fall asleep during the day, does not fall asleep involuntarily or while driving. He does not have loss of muscle tone with strong emotion or daytime difficulties due to excessive sleepiness. He does not feel paralyzed on waking or falling asleep nor does he have vivid dreamlike scenes upon awakening or falling asleep. He does not feel afraid to go to sleep. He does not have nightmares. He rarely remembers his dreams. He does not have racing thoughts. He rarely feels sad or depressed. He occasionally has anxiety. He does not have muscular tension or notices parts of his body jerking. He rarely kicks at night. He denies crawling and aching feelings in his legs or any kind of leg pain at night. He does not have morning jaw pain and does not grind his teeth during sleep. He rarely is bothered by pain during the day. He is not awakened by pain at night or wakes up feeling stiff in the morning. He does not wake up with sore achy muscles are pain in the neck and spine. He is retired. He rarely awakens feeling refreshed Normal bedtime 10:30 p.m., falling asleep within 5 minutes, wakes up on average once per night to use the bathroom and then returns to sleep. He wakes at 7:00 in the morning. His weekend schedule is the same, perhaps staying awake until 11:00 p.m.. He takes short naps, 10-15 minutes, and these can be refreshing. He is less drowsy now than he was before his stent placement in Nov, 2020. Habits: Former smoker. Caffeine 2 cups a day. No alcohol or recreational drugs. [facility] Past Medical History Medical History BPH w/o urinary obs/LUTS CAD in [place] artery CHF (congestive heart failure) Chronic low back pain without sciatica Dyslipidemia Essential (primary) hypertension GERD without esophagitis Heart attack 02/07/2000 Liver cyst 07/2018 Non-seasonal allergic rhinitis Renal cyst Sensorineural hearing loss Vitamin D deficiency Surgical History Surgical History History of coronary artery stent placement (~1999) 1999 History of hernia repair (~1990) 1990 - History of nasal surgery (~2004) 2004 & 05/2019 Hx of cataract surgery (Unknown) Hx of inguinal herniorrhaphy (~1990) 1990 Stented coronary artery (~2020) Family History Family History Mother Hypertension Sibling Coronary artery disease Hypercholesteremia Social History Social History Social History: The patient lives with his who is a durable power traffic law attorney for healthcare. The patient desires to be a full code but desires not to live in a vegetative state. The patient is an ex-smoker. He is retired from [employer]. No alcohol marijuana or illicit drugs. Smoking packs per day: 1 Smoking cigarettes per day: 20.0 Years smoked: 20 Smoking pack-years: 20.00 Smoking status: Former sm
== END 2021-02-26 06:54 | disposition home or self-care (01) ==
PROVIDERS: PCP Family Medicine; Visit Provider Family Medicine
DX: G47.33 Obstructive sleep apnea (adult) (pediatric) (principal); G47.00 Insomnia, unspecified; G25.81 Restless legs syndrome
CPT/HCPCS: 95810

== ENCOUNTER → 2021-04-03 08:56 | Outpatient (CLI) | payer MEDICARE, SELFPAY ==
--- NOTE | 2021-04-18 10:41 | WPDSLEEPSTUD ---
Sleep Study Date of Study: 04/03/21 Ordering Provider: Shania Nelson MD Interpreting Physician: Xi Kohler MD Sleep Study Type: CPAP Titration Height: 1.75 m Weight: 88.451 kg Body Mass Index: 28.8 Neck Circumference (inches): 16 Nesbit: 3 Reason for Sleep Study * Basic nocturnal polysomnogram 02/25/2021 mild obstructive sleep apnea with an AHI of 5.3, higher during REM with an apnea hypopnea index of 17.1 with desaturation to 87% and intermittent loud snoring. He had excessive limb movements, 48.5 isolated limb movements per hour. He presents for a CPAP titration. Sleep History Oral Bernal is a 80 year old man who complains of daytime fatigue no matter how much sleep he gets even 7 to 8 hours. He rarely awakens from sleep feeling short of breath. He does not awaken at night with heartburn, belching or coughing. He rarely snores only when he has nasal congestion. He rarely snores loudly. He rarely has trouble sleeping with a cold. He does not gasp for breath at night or have breathing problems at night observed by others. He rarely sweats excessively at night. He rarely notices his heart pounding or beating irregularly at night. He does not fall asleep during the day, does not fall asleep involuntarily or while driving. He does not have loss of muscle tone with strong emotion or daytime difficulties due to excessive sleepiness. He does not feel paralyzed on waking or falling asleep nor does he have vivid dreamlike scenes upon awakening or falling asleep. He does not feel afraid to go to sleep. He does not have nightmares. He rarely remembers his dreams. He does not have racing thoughts. He rarely feels sad or depressed. He occasionally has anxiety. He does not have muscular tension or notices parts of his body jerking. He rarely kicks at night. He denies crawling and aching feelings in his legs or any kind of leg pain at night. He does not have morning jaw pain and does not grind his teeth during sleep. He rarely is bothered by pain during the day. He is not awakened by pain at night or wakes up feeling stiff in the morning. He does not wake up with sore achy muscles are pain in the neck and spine. He is retired. He rarely awakens feeling refreshed Normal bedtime 10:30 p.m., falling asleep within 5 minutes, wakes up on average once per night to use the bathroom and then returns to sleep. He wakes at 7:00 in the morning. His weekend schedule is the same, perhaps staying awake until 11:00 p.m.. He takes short naps, 10-15 minutes, and these can be refreshing. He is less drowsy now than he was before his stent placement in Nov, 2020. Habits: Former smoker. Caffeine 2 cups a day. No alcohol or recreational drugs. [facility] Past Medical History Medical History BPH w/o urinary obs/LUTS CAD in [place] artery CHF (congestive heart failure) Chronic low back pain without sciatica Dyslipidemia Essential (primary) hypertension GERD without esophagitis Heart attack 02/07/2000 Liver cyst 07/2018 Non-seasonal allergic rhinitis Renal cyst Sensorineural hearing loss Vitamin D deficiency Surgical History Surgical History History of coronary artery stent placement (~1999) 1999 History of hernia repair (~1990) 1990 - triple History of nasal surgery (~2004) 2004 & 05/2019 Hx of cataract surgery (Unknown) Hx of inguinal herniorrhaphy (~1990) 1990 Stented coronary artery (~2020) Family History Family History Mother Hypertension Sibling Coronary artery disease Hypercholesteremia Social History Social History Social History: The patient lives with his who is a durable power diesel powerplant mechanic for healthcare. The patient desires to be a full code but desires not to
[2021-04-23 14:00] VITALS: BMI 28.8
== END ==
PROVIDERS: PCP Family Medicine; Visit Provider Family Medicine
DX: G47.33 Obstructive sleep apnea (adult) (pediatric) (principal)
CPT/HCPCS: 95811

== ENCOUNTER 2021-04-15 20:02 | Emergency (ER) | payer MEDICARE, SELFPAY ==
--- NOTE | ~2021-04-15 | XR_ITS ---
EXAMINATION: XR chest 2V DATE: 04/15/2021 20:48 INDICATION: Chest tightness and tachycardia TECHNIQUE: PA and lateral views of the chest were obtained. COMPARISON: Chest radiograph dated 04/26/[address] dated 01/25/2021 FINDINGS: Chronic eventration of the right hemidiaphragm. Unchanged thin linear discoid atelectasis/scarring at the left midlung zone and right lung base. No new airspace opacities, pulmonary edema, pleural effus ion or pneumothorax. The cardiomediastinal silhouette is normal. Moderate S-shaped thoracic spondylos is with associated mild to moderate spondylosis. IMPRESSION: 1. No acute cardiopulmonary disease. Reviewed, dictated and finalized at location A.
--- NOTE | 2021-04-15 20:22 | ECG_ITS ---
Measurements Intervals [place] Rate: 138 P: [place]: 0 QRS: -51 QRSD: 141 T: 95 QT: 310 QTc: 470 Interpretive Statements WIDE COMPLEX TACHYCARDIA LEFT AXIS DEVIATION LEFT BUNDLE BRANCH BLOCK BASELINE WANDER- AVL, AVF ABNORMAL ECG Electronically Signed On 04-16-2021 6:43:32 CDT by William Cason D.O.
[2021-04-15 21:04] LABS: Basophils Percent Auto 0.3 % (0.2-1.2); Eosinophils Absolute Auto 0.3 K/mm3 (0-0.3); Eosinophils Percent Auto 4.1 % (0-4.4); Hematocrit 46.8 % (42.0-52.0); Hemoglobin 15.9 g/dL (14.0-18.0); Immature Granulocyte Absolute 0.01 K/mm3 (0.00-0.031); Immature Granulocyte Percent A 0.1 % (0-0.5); Lymphocytes Absolute Auto 2.24 K/mm3 (0.9-3.2); Lymphocytes Percent Auto 28.6 % (18.3-44.2); Mean Corpuscular Hemoglobin 33.9 pg (26-34); Mean Corpuscular Volume 99.8 fl (80-100); Mean Platelet Volume 10.4 fl (7.4-10.4); Monocytes Absolute Auto 1.2 K/mm3 (0.1-0.6); Monocytes Percent Auto 15.7 % (2.6-8.5); Neutrophils Percent Auto 51.2 % (45.5-73.1); Platelet Count Result 176 k/mm3 (150-375); Red Blood Count 4.69 M/mm3 (4.6-6.20); Red Cell Distribution Width 12.8 % (11.5-14.5); White Blood Count 7.8 K/mm3 (4.5-10.0)
[2021-04-15 21:13] LABS: Anion Gap 11 mmol/L (8-16); Blood Urea Nitrogen 21 mg/dL (9-20); Calcium 9.8 mg/dL (8.4-10.2); Carbon Dioxide 21 mmol/L (22-30); Chloride 107 mmol/L (98-107); Estimated Glomerular Filt Rate > 60; Glucose 140 mg/dL (65-110); Sodium 139 mmol/L (137-145)
--- NOTE | 2021-04-15 21:18 | PC.NURSE ---
At bedside to administer Aspirin and Diltiazem and pt's HR noted to be 80. Meds held and ERP notified. EKG taken. 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 Aspirin not given.
[2021-04-15 21:21] LABS: Prothrombin Time 13.4 Seconds (11.1-14.7)
[2021-04-15 21:22] VITALS: BP 120/101; PULSE 85
[2021-04-15 21:24] VITALS: BP 123/103; PULSE 65; RESP 20; O2SAT 97; O2SAT 98
[2021-04-15 21:25] LABS: Troponin I < 0.012 ng/mL (0.000-0.034)
--- NOTE | 2021-04-15 21:27 | PC.NURSE ---
Called lab at 2126 Lakisha agreed to added a TSH
[2021-04-15 21:35] LABS: Magnesium 2.4 mg/dL (1.6-2.3)
--- NOTE | 2021-04-15 22:00 | ED.GENADULT ---
HPI - General Adult General Chief complaint: Chest Pain Stated complaint: heart palpitations Time Seen by Provider: 04/15/21 20:43 History of Present Illness HPI narrative: Patient 80-year-old gentleman who presents the emergency department with chief complaint of palpitations and shortness of breath. The patient reports that he had onset today of his heart beating very fast the patient reports that it was in the 140s reports it was not improved by anything nor is it worsened by anything. The patient states he has had some episodes of palpitations before in the past but usually only last a few minutes and resolves. Patient states that this episode lasted longer patient states he had little bit of tightness in his chest with this and reports that he has been seen before by cardiology in the past. Related Data Home Medications Medication Instructions Recorded Confirmed aspirin 81 mg tablet,delayed 81 mg PO DAILY 01/01/20 03/03/21 release L.acidophil-L.casei-B.bifid-B.longum-FOS 1 cap PO DAILY 07/03/20 03/03/21 2 billion cell-50 mg capsule metoprolol succinate 25 mg 25 mg PO DAILY tablet 07/03/20 03/03/21 tablet,extended release 24 hr azelastine 1 spray INTRANASAL Q12H PRN 12/02/20 03/03/21 fluticasone propionate [Allergy 1 spray INTRANASAL DAILY PRN 12/02/20 03/03/21 Relief (fluticasone)] nitroglycerin 0.4 mg sublingual 0.4 mg SUBLINGUAL Q5M PRN 01/15/21 03/03/21 tablet pantoprazole 40 mg tablet,delayed 40 mg PO QAM 01/15/21 03/03/21 release Centrum Silver Men 1 tablet PO DAILY 01/24/21 03/03/21 lisinopril 5 mg tablet 10 mg PO DAILY 03/03/21 03/03/21 Allergies Allergy/AdvReac Type Severity Reaction Status Date / Time cefuroxime Allergy Unknown Unknown Verified 04/15/21 21:30 Review of Systems Review of Systems: A 10 system review of systems was completed on the patient and is negative except for what is stated in the HPI. Nursing and ancillary documentation was reviewed. [facility] Past Medical History Medical History BPH w/o urinary obs/LUTS CAD in [place] artery CHF (congestive heart failure) Chronic low back pain without sciatica Dyslipidemia Essential (primary) hypertension GERD without esophagitis Heart attack 02/07/2000 Liver cyst 07/2018 Non-seasonal allergic rhinitis Renal cyst Sensorineural hearing loss Vitamin D deficiency Surgical History Surgical History History of coronary artery stent placement (~1999) 1999 History of hernia repair (~1990) 1990 - History of nasal surgery (~2004) 2004 & 05/2019 Hx of cataract surgery (Unknown) Hx of inguinal herniorrhaphy (~1990) 1990 Stented coronary artery (~2020) Family History Family History Mother Hypertension Sibling Coronary artery disease Hypercholesteremia Social History Social History Social History: The patient lives with his who is a durable power insurance defense attorney for healthcare. The patient desires to be a full code but desires not to live in a vegetative state. The patient is an ex-smoker. He is retired from [employer]. No alcohol marijuana or illicit drugs. Smoking packs per day: 1 Smoking cigarettes per day: 20.0 Years smoked: 20 Smoking pack-years: 20.00 Smoking status: Former smoker Tobacco type: cigarettes Second hand tobacco smoke exposure: No Smoking end date: 07/26/81 Alcohol intake: current Alcohol use details: consumes 1 glass of wine rarely Substance use: never Substance use type: does not use Gender identity (if verbalized by the patient): Male Spiritual care concerns: No Exam Narrative: GENERAL: Well-appearing, well-nourished, and in no acute distress. HEAD: Normocephalic, atraumatic. EYES: PER
[2021-04-15 22:06] LABS: Thyroid Stimulating Hormone 0.752 uIU/mL (0.465-4.680)
[2021-04-15 22:45] VITALS: BP 101/60; PULSE 62; RESP 20; O2SAT 98
[2021-04-16 00:08] VITALS: BP 117/60; PULSE 56; RESP 16; O2SAT 98
[2021-04-16 00:11] LABS: Troponin I < 0.012 ng/mL (0.000-0.034)
[2021-04-16 01:58] VITALS: BP 113/66; PULSE 55; RESP 20; O2SAT 96
== END 2021-04-16 01:52 | disposition home or self-care (01) ==
PROVIDERS: Emergency Provider Emergency Medicine; PCP Family Medicine
DX: I47.1 Supraventricular tachycardia (principal); I11.0 Hypertensive heart disease with heart failure; I50.9 Heart failure, unspecified; I25.10 Atherosclerotic heart disease of native coronary artery without angina pectoris; K21.9 Gastro-esophageal reflux disease without esophagitis
CPT/HCPCS: 36415; 71046; 80048; 83735; 84443; 84484; 85025; 85610; 85730; 93005; 99284

== ENCOUNTER 2021-05-01 08:30 | Outpatient (RCR) | payer MEDICARE, SELFPAY ==
[2021-01-09 12:16] VITALS: PULSE 69
--- NOTE | 2021-01-28 16:21 | PCCPR ---
Addendum entered by Jessica Miller RN 02/05/21 09:32: Spoke with Oral still awaitng his holter monitor results. States he was told by Dr Faulkner's office it may take up until 2 weeks to get his results however he is not released to return for that reason Encouraged him to call again. Original Note: Oral was hospitalized over the weekend with shortness of breath and tachycardia. Called today to check in with him, he said that he has been wearing a Holter monitor which he turned in to Dr. Faulkner's office today. He was told by the nurse in Dr. Faulkner's office that he should hold cardiac rehab until the results from the Holter monitor come back. Oral will call us as soon as he knows the results.
--- NOTE | 2021-02-10 11:45 | PCCPR ---
Patient called today to let us know he won't be attending today's session as he's still waiting on the doctor to release him back to the cardiacrehab program.
--- NOTE | 2021-02-11 08:16 | PCCPR ---
Addendum entered by Anahi Haddad RN 02/11/21 15:30: Received release, Oral notified he could return to cardiac rehab. Original Note: Spoke to [facility] (02/11); will sign release to return from recent hospitalization when in office , 02/12
--- NOTE | 2021-04-16 08:52 | PCCPR ---
Oral called this morning and stated that he was in the emergency room last night with a rapid heart which converted on his own. He is at home now and plans to call the thermal cutting machine operator for a follow up appointment today. Advised him to question thermal cutting machine operator as to when he can return to cardiac rehab.
--- NOTE | 2021-05-05 08:39 | PCCPR ---
Absent due to rapid HR ? postpone dc Oral called this am let us know he would not be in today. Discussed graduation early. He voiced concern he had and episode last after class. He continues to feel wiped out . Encouraged him to call his Environmental Health Technologist and discuss his options especially since he recently was in ED for it. Also asked him to callus with an update and will decide on dc him now or in a few days.
--- NOTE | 2021-05-07 09:25 | PCCPR ---
Discharge-called and spoke to Oral, he does not have an appt with glass novelty maker until 05/17. He states he is just going to go ahead and discharge from the program with everything he has going on and he only has 2 sessions left with us. Will mail pt paperwork and send fax to .
== END 2021-05-07 13:49 | disposition home or self-care (01) ==
LOC: ANHCPREHAB 08:30
PROVIDERS: PCP Family Medicine; Visit Provider Specialist
DX: Z95.5 Presence of coronary angioplasty implant and graft (principal)
CPT/HCPCS: 93798

== ENCOUNTER 2021-05-08 12:47 | Outpatient (CLI) | payer MEDICARE, SELFPAY ==
[2021-05-08 13:29] LABS: Anion Gap 8 mmol/L (8-16); Blood Urea Nitrogen 16 mg/dL (9-20); Calcium 9.8 mg/dL (8.4-10.2); Carbon Dioxide 27 mmol/L (22-30); Chloride 105 mmol/L (98-107); Estimated Glomerular Filt Rate > 60; Glucose 105 mg/dL (65-110); Magnesium 2.3 mg/dL (1.6-2.3); Potassium 4.3 mmol/L (3.4-5.0); Sodium 140 mmol/L (137-145)
[2021-05-08 13:41] LABS: Troponin I < 0.012 ng/mL (0.000-0.034)
== END 2021-05-08 12:48 | disposition home or self-care (01) ==
LOC: ANHLAB 12:50
PROVIDERS: PCP Family Medicine; Visit Provider Nurse Practitioner Adult Health
DX: I25.9 Chronic ischemic heart disease, unspecified (principal)
CPT/HCPCS: 36415; 80048; 83735; 84484

== ENCOUNTER 2021-06-29 12:35 | Emergency (ER) | payer MEDICARE, SELFPAY ==
[2021-06-29] VITALS (18 sets, daily range): BP systolic 136–162; BP diastolic 60–78; PULSE 40–57; RESP 14–24; TEMP 36.1; O2SAT 98–100
--- NOTE | ~2021-06-29 | XR_ITS ---
EXAMINATION: XR chest 2V DATE: 06/29/2021 13:01 INDICATION: Bradycardia. Chest tightness. TECHNIQUE: PA and lateral views of the chest were obtained. COMPARISON: Chest radiograph dated 04/15/2021 FINDINGS: Persistent elevation of the right hemidiaphragm. Unchanged minimal linear atelectasis/scarring at the lateral left lower lung zone. No new airspace opacities, pulmonary edema, pleural effusion or pneumo thorax. The cardiomediastinal silhouette is normal. Mild S-shaped thoracic scoliosis with mild spondy losis. IMPRESSION: 1. Chronic elevation of the right hemidiaphragm. No acute cardiopulmonary disease. Reviewed, dictated and finalized at location A. STICS ANALYTICS MANAGER IMPRESSION: 1. Chronic elevation of the right hemidiaphragm. No acute cardiopulmonary disea se.
--- NOTE | 2021-06-29 12:42 | ECG_ITS ---
Measurements Intervals [place] Rate: 45 P: -34 TN: 180 QRS: -22 QRSD: 150 T: 78 QT: 477 QTc: 414 Interpretive Statements SINUS BRADYCARDIA LEFT BUNDLE BRANCH BLOCK BASELINE ARTIFACT- I, II, III, AVR, AVL, AVF, V1-V6 ABNORMAL ECG Electronically Signed On 06-29-2021 17:08:53 SPECIAL AGENT SECRET SERVICE by William Cason D.O.
[2021-06-29 13:18] LABS: Basophils Percent Auto 0.4 % (0.2-1.2); Eosinophils Absolute Auto 0.4 K/mm3 (0-0.3); Eosinophils Percent Auto 4.7 % (0-4.4); Hematocrit 45.3 % (42.0-52.0); Hemoglobin 15.2 g/dL (14.0-18.0); Immature Granulocyte Absolute 0.02 K/mm3 (0.00-0.031); Immature Granulocyte Percent A 0.3 % (0-0.5); Lymphocytes Absolute Auto 2.17 K/mm3 (0.9-3.2); Lymphocytes Percent Auto 28.1 % (18.3-44.2); Mean Corpuscular HGB Conc 33.6 g/dl (32-36); Mean Corpuscular Hemoglobin 34.3 pg (26-34); Mean Corpuscular Volume 102.3 fl (80-100); Mean Platelet Volume 10.1 fl (7.4-10.4); Monocytes Percent Auto 12.3 % (2.6-8.5); Neutrophils Absolute Auto 4.2 K/mm3 (1.3-6.7); Neutrophils Percent Auto 54.2 % (45.5-73.1); Platelet Count Result 178 k/mm3 (150-375); Red Blood Count 4.43 M/mm3 (4.6-6.20); Red Cell Distribution Width 12.8 % (11.5-14.5); White Blood Count 7.7 K/mm3 (4.5-10.0)
[2021-06-29 13:24] LABS: Alanine Aminotransferase 19 U/L (4-50); Albumin Level 4.3 g/dL (3.5-5.1); Alkaline Phosphatase 57 U/L (38-126); Anion Gap 6 mmol/L (8-16); Aspartate Amino Transferase 31 U/L (17-59); Bilirubin,Total 0.6 mg/dL (0.2-1.3); Blood Urea Nitrogen 18 mg/dL (9-20); Calcium 9.5 mg/dL (8.4-10.2); Carbon Dioxide 27 mmol/L (22-30); Chloride 102 mmol/L (98-107); Estimated CRCL calculation 58 ml/min; Estimated Glomerular Filt Rate > 60; Glucose 100 mg/dL (65-110); Lipase 95 U/L (23-300); Sodium 135 mmol/L (137-145)
[2021-06-29] MEDS: ASPIRIN 81 MG CHEWABLE TABLET 324 MG PO (13:25)
[2021-06-29 13:36] LABS: Troponin I < 0.012 ng/mL (0.000-0.034)
[2021-06-29 13:38] LABS: Prothrombin Time 12.7 Seconds (11.1-14.7)
[2021-06-29 13:39] LABS: Partial Thromboplastin Time 31.5 SECONDS (22.3-36.8)
--- NOTE | 2021-06-29 14:24 | ED.ARRPALP ---
HPI - Arrhythmia/Palpitations General Chief Complaint: Arrhythmia/Palpitations Stated Complaint: bradycardic Time Seen by Provider: 06/29/21 12:53 Source: patient Mode of arrival: ambulatory Limitations: no limitations History of Present Illness HPI narrative: 80-year-old with a history of atrial fibrillation, hypertension, hyperlipidemia here with complaints of low heart rate since this morning. Patient noticed his heart rate to be 40's denies any shortness of breath, nausea or vomiting. Patient states that he was started on metoprolol succinate 25 mg p.o. twice daily. Related Data Home Medications Medication Instructions Recorded Confirmed aspirin 81 mg tablet,delayed 81 mg PO DAILY 01/01/20 03/03/21 release L.acidophil-L.casei-B.bifid-B.longum-FOS 1 cap PO DAILY 07/03/20 03/03/21 2 billion cell-50 mg capsule metoprolol succinate 25 mg 25 mg PO DAILY tablet 07/03/20 03/03/21 tablet,extended release 24 hr azelastine 1 spray INTRANASAL Q12H PRN 12/02/20 03/03/21 fluticasone propionate [Allergy 1 spray INTRANASAL DAILY PRN 12/02/20 03/03/21 Relief (fluticasone)] nitroglycerin 0.4 mg sublingual 0.4 mg SUBLINGUAL Q5M PRN 01/15/21 03/03/21 tablet pantoprazole 40 mg tablet,delayed 40 mg PO QAM 01/15/21 03/03/21 release Centrum Silver Men 1 tablet PO DAILY 01/24/21 03/03/21 lisinopril 5 mg tablet 10 mg PO DAILY 03/03/21 03/03/21 Allergies Allergy/AdvReac Type Severity Reaction Status Date / Time cefuroxime Allergy Unknown Unknown Verified 06/29/21 12:47 Review of Systems Review of Systems: All systems reviewed & are unremarkable except as noted in HPI and below Constitutional: Constitutional: Reports no additional constitutional complaints Eyes: Eyes: Reports no additional eye complaints ENT: Reports system reviewed and no additional complaints, except as documented Cardiovascular: Cardiovascular: Reports as per HPI Respiratory: Respiratory: Reports no additional respiratory complaints Gastrointestinal: Gastrointestinal: Reports no additional gastrointestinal complaints Musculoskeletal: Musculoskeletal: Reports no additional musculoskeletal complaints Integumentary/Breasts: Skin/Breast: Reports system reviewed and no additional complaints, except as docu Neurologic: Reports system reviewed and no additional complaints, except as documented [facility] Past Medical History Medical History BPH w/o urinary obs/LUTS CAD in [place] artery CHF (congestive heart failure) Chronic low back pain without sciatica Dyslipidemia Essential (primary) hypertension GERD without esophagitis Heart attack 02/07/2000 Liver cyst 07/2018 Non-seasonal allergic rhinitis Renal cyst Sensorineural hearing loss Vitamin D deficiency Surgical History Surgical History History of coronary artery stent placement (~1999) 1999 History of hernia repair (~1990) 1990 - History of nasal surgery (~2004) 2004 & 05/2019 Hx of cataract surgery (Unknown) Hx of inguinal herniorrhaphy (~1990) 1990 Stented coronary artery (~2020) Family History Family History Mother Hypertension Sibling Coronary artery disease Hypercholesteremia Social History Social History Social History: The patient lives with his who is a durable power contracts attorney for healthcare. The patient desires to be a full code but desires not to live in a vegetative state. The patient is an ex-smoker. He is retired from [employer]. No alcohol marijuana or illicit drugs. Smoking packs per day: 1 Smoking cigarettes per day: 20.0 Years smoked: 20 Smoking pack-years: 20.00 Smoking status: Former smoker Tobacco type: cigarettes Second hand tobacco smoke exposure: No Smoking end date: 07/26/81 Alcohol intak
== END 2021-06-29 15:37 | disposition home or self-care (01) ==
PROVIDERS: Emergency Provider Family Medicine; PCP Family Medicine
DX: R00.1 Bradycardia, unspecified (principal); I48.91 Unspecified atrial fibrillation; I11.0 Hypertensive heart disease with heart failure; I50.9 Heart failure, unspecified; I25.10 Atherosclerotic heart disease of native coronary artery without angina pectoris; K21.9 Gastro-esophageal reflux disease without esophagitis; I25.2 Old myocardial infarction
CPT/HCPCS: 36415; 71046; 80053; 83690; 84484; 85025; 85610; 85730; 93005; 99284; A9270

== ENCOUNTER → 2021-07-31 10:10 | Outpatient (CLI) | payer MEDICARE, SELFPAY ==
--- NOTE | ~2021-07-31 | CT_ITS ---
EXAMINATION: CT abdomen w con DATE: 07/31/2021 11:01 INDICATION: Left upper quadrant abdominal pain TECHNIQUE: Computed tomography (CT) of the abdomen was performed with 100 mL Omnipaque-350 intravenou s contrast. Automated exposure control and iterative reconstruction technique were employed. The dose -length product was 619.40 mGy-cm. COMPARISON: None FINDINGS: Mild atelectasis/scarring at the lingula and right lower lobe. Calcified nodules in the left lower lo be and calcified left hilar and mediastinal lymph nodes consistent with old granulomatous disease. He art size is normal. Atherosclerotic coronary artery calcific lesions and likely coronary artery stent ing. Aortic valve calcification. No pericardial or pleural effusion. Again seen are numerous simple a ppearing cyst throughout the liver and in both kidneys consistent with autosomal dominant polycystic kidney disease. Gallbladder, spleen, pancreas and bilateral adrenal glands are normal. Small fat-cont aining umbilical hernia. Visualized portions of the bowels are unremarkable including a normal append ix. No pathologically enlarged abdominal lymphadenopathy. L5 spondylolysis with bilateral pars intera rticularis defects and 1.4 cm anterolisthesis on S1. Mild spondylosis in the more cephalad lumbar and lower thoracic spine. IMPRESSION: 1. No acute intra-abdominal process. 2. Numerous hepatic and bilateral renal cysts suggestive of autosomal dominant polycystic kidney dise ase. 3. Small fat-containing umbilical hernia. 4. 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 Reviewed, dictated and finalized at location B. TRICAL POWER STATION TECHNICIAN IMPRESSION: 1. No acute intra-abdominal process. 2. 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 3. Small fat-containing umbilical hernia. 4. 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
[2021-07-31 10:39] LABS: Estimated Glomerular Filt Rate > 60
== END ==
PROVIDERS: PCP Family Medicine; Visit Provider Nurse Practitioner
DX: R10.12 Left upper quadrant pain (principal); N28.1 Cyst of kidney, acquired; K42.9 Umbilical hernia without obstruction or gangrene; M47.817 Spondylosis without myelopathy or radiculopathy, lumbosacral region
CPT/HCPCS: 74160; Q9967

== ENCOUNTER 2021-12-23 15:33 | Outpatient (CLI) | payer MEDICARE, SELFPAY ==
--- NOTE | ~2021-12-23 | XR_ITS ---
EXAMINATION: XR sinus min 3V INDICATION: Nasal congestion TECHNIQUE: Five views of the paranasal sinuses are obtained. COMPARISON: 01/28/2021 FINDINGS: There is normal pneumatization and aeration of the paranasal sinuses. No definite sinus dis ease is identified. The mastoid air cells appear to be well aerated. IMPRESSION: 1. No definite evidence of sinusitis. If there is high clinical suspicion for sinusitis, further eval uation with CT of the sinuses is recommended. Reviewed, dictated and finalized at location F. IMPRESSION: 1. No definite evidence of sinusitis. If there is high clinical suspicion for s inusitis, further evaluation with CT of the sinuses is recommended.
== END 2021-12-23 15:34 | disposition home or self-care (01) ==
LOC: ANHIMG 15:34
PROVIDERS: PCP Family Medicine; Visit Provider Family Medicine
DX: R09.81 Nasal congestion (principal)
CPT/HCPCS: 70220

== ENCOUNTER 2022-04-16 11:00 | Outpatient (RCR) | payer MEDICARE, SELFPAY | END 2022-04-16 23:59 | disposition home or self-care (01) | LOC: ANHCPREHAB 11:00 | PROVIDERS: PCP Family Medicine | DX: Z95.5 Presence of coronary angioplasty implant and graft (principal) | CPT/HCPCS: 93798 ==

== ENCOUNTER 2022-07-04 11:50 | Emergency (ER) | payer MEDICARE, SELFPAY ==
[2022-07-04 12:03] VITALS: BP 129/75; PULSE 65; RESP 16; TEMP 36.6; O2SAT 98
--- NOTE | 2022-07-04 13:17 | ED.URI ---
HPI - URI/Sore Throat General Chief Complaint: Upper Respiratory Infection Stated Complaint: CONGESTION/SORE THROAT Time Seen by Provider: 07/04/22 13:17 Source: patient and RN notes reviewed Mode of arrival: ambulatory Limitations: no limitations History of Present Illness HPI Narrative: 81 y/o male presented for c/o sore throat, sinus congestion and drainage, and fatigue for over 8 days. Taking many otc meds without significant relief. Patient endorses a history of multiple sinus infections and is eustachian tube dysfunction, following with ENT. He denies shortness of breath, wheezing, nausea, vomiting, diarrhea, fever or chills. Hx CAD s/p angioplasty MD elicited complaint: cough Related Data Home Medications Medication Instructions Recorded Confirmed aspirin 81 mg tablet,delayed 81 mg PO DAILY 01/01/20 07/04/22 release (Adult Low Dose Aspirin) L.acidophil-L.casei-B.bifid-B.longum-FOS 1 cap PO DAILY 07/03/20 07/04/22 2 billion cell-50 mg capsule (Probiotic Blend) fluticasone propionate 50 1 spray intranasal DAILY PRN 12/02/20 07/04/22 mcg/actuation nasal Allergy Symptoms spray,suspension (Allergy Relief (fluticasone)) nitroglycerin 0.4 mg sublingual 0.4 mg sublingual Q5M PRN chest 01/15/21 07/04/22 tablet pain testvhox-pdg-cvoho acid 300 1 tablet PO DAILY 01/24/21 07/04/22 mcg-lycopene 600 mcg-lutein 300 mcg tablet (Centrum Silver Men) lisinopril 10 mg tablet 10 mg PO DAILY 08/07/21 07/04/22 loratadine 10 mg tablet (Claritin) 10 mg PO DAILY 12/19/21 07/04/22 alprazolam 0.25 mg tablet 0.25 mg PO QHS PRN Anxiety 12/23/21 07/04/22 Allergies Allergy/AdvReac Type Severity Reaction Status Date / Time cefuroxime Allergy Unknown Unknown Verified 07/04/22 13:16 Review of Systems Review of Systems: CONSTITUTIONAL: Endorses malaise, denies chills, sweats, fever EYES: Denies visual changes, redness, or discharge ENT: Reports rhinorrhea, congestion, sore throat CARDIOVASCULAR: Denies chest pain, palpitations, edema RESPIRATORY: Reports cough, post nasal drainage. Denies dyspnea GASTROINTESTINAL: Denies abdominal pain, nausea, vomiting, diarrhea SKIN: Denies rash or itching MUSCULOSKELETAL: denies myalgia NEUROLOGIC: Denies headache [facility] Past Medical History Medical History BPH w/o urinary obs/LUTS CAD in [place] artery Chronic low back pain without sciatica Dyslipidemia Essential (primary) hypertension GERD without esophagitis Heart attack 02/07/2000 Liver cyst 07/2018 Non-seasonal allergic rhinitis Renal cyst Sensorineural hearing loss Vitamin D deficiency Surgical History Surgical History History of coronary artery stent placement x6 - 1999, 11/2020, 09/2021, 01/23/22 History of hernia repair (~1990) 1990 - History of nasal surgery (~2004) 2004 & 05/2019 Hx of cataract surgery (Unknown) Hx of inguinal herniorrhaphy (~1990) 1990 Stented coronary artery (~2020) 09/2021 in [place] Family History Family History Mother Hypertension Sibling Coronary artery disease Hypercholesteremia Social History Social History Social History: The patient lives with his who is a durable power tax attorney for healthcare. The patient desires to be a full code but desires not to live in a vegetative state. The patient is an ex-smoker. He is retired from [employer]. No alcohol marijuana or illicit drugs. Smoking packs per day: 1 Smoking cigarettes per day: 20.0 Years smoked: 20 Smoking pack-years: 20.00 Smoking status: Former smoker Tobacco type: cigarettes Second hand tobacco smoke exposure: No Smoking end date: 07/26/81 Alcohol intake: current Alcohol use details: consumes 1 glass of wine rarely Substance use: never
== END 2022-07-04 13:47 | disposition home or self-care (01) ==
PROVIDERS: Emergency Provider Nurse Practitioner Family; PCP Family Medicine
DX: J06.9 Acute upper respiratory infection, unspecified (principal); Z87.891 Personal history of nicotine dependence; I25.10 Atherosclerotic heart disease of native coronary artery without angina pectoris; N40.0 Benign prostatic hyperplasia without lower urinary tract symptoms; E78.5 Hyperlipidemia, unspecified; I10 Essential (primary) hypertension; K21.9 Gastro-esophageal reflux disease without esophagitis; I25.2 Old myocardial infarction; Z95.5 Presence of coronary angioplasty implant and graft; Z79.82 Long term (current) use of aspirin
CPT/HCPCS: 99213; G0463

== ENCOUNTER 2023-07-03 08:38 | Emergency (ER) | payer MEDICARE, SELFPAY ==
[2023-07-03 08:46] VITALS: BP 125/68; PULSE 92; RESP 16; TEMP 36.4; O2SAT 98
--- NOTE | 2023-07-03 09:13 | ED.NAVMDI ---
HPI - Nausea/Vomiting/Diarrhea General Chief complaint: Nausea/Vomiting/Diarrhea Stated complaint: Diarrhea;Reflux Time Seen by Provider: 07/03/23 08:48 Source: patient and RN notes reviewed Mode of arrival: ambulatory Limitations: no limitations History of Present Illness HPI Narrative: Patient presents today complaining of 3 days history nausea, increased acid reflux, and diarrhea. Hx of GERD for which he has recently decreased his meds from pantoprazole to only Pepcid per his request. States he had dinner with some heavy seasoning, and after dinner his GERD symptoms started with burning in his upper esophagus. Soon after the diarrhea followed. It has mostly been watery, 1-2 times per day. Denies blood or mucus in the stool. Denies fever or abdominal pain. He has tried Pepcid, Rolaids, and Pepto-Bismol without relief of symptoms. Related Data Home Medications Medication Instructions Recorded Confirmed aspirin 81 mg tablet,delayed 81 mg PO DAILY 01/01/20 07/03/23 release (Adult Low Dose Aspirin) L.acidophil-L.casei-B.bifid-B.longum-FOS 1 cap PO DAILY 07/03/20 07/03/23 2 billion cell-50 mg capsule (Probiotic Blend) fluticasone propionate 50 1 spray intranasal DAILY PRN 12/02/20 07/03/23 mcg/actuation nasal Allergy Symptoms spray,suspension (Allergy Relief (fluticasone)) nitroglycerin 0.4 mg sublingual 0.4 mg sublingual Q5M PRN chest 01/15/21 07/03/23 tablet pain sumdhkeu-ig-idqsl 300 mcg-K 60 1 tablet PO DAILY 01/24/21 07/03/23 mcg-lycop 600 mcg-lutein 300 mcg tablet (Centrum Silver Men) alprazolam 0.25 mg tablet 0.25 mg PO QHS PRN Anxiety 12/23/21 07/03/23 atorvastatin 80 mg tablet (Lipitor) 80 mg PO DAILY 06/09/23 07/03/23 lisinopril 10 mg tablet 20 mg PO DAILY 06/09/23 07/03/23 Allergies Allergy/AdvReac Type Severity Reaction Status Date / Time cefuroxime Allergy Unknown Unknown Verified 07/03/23 09:34 Review of Systems Review of Systems: CONSTITUTIONAL: Denies body aches, fever, chills, or sweats. EYES: Denies visual changes, redness, or discharge. ENT: Denies rhinorrhea, congestion, sore throat, or otalgia. CARDIOVASCULAR: Denies chest pain, palpitations, or edema. RESPIRATORY: Denies cough or dyspnea. GASTROINTESTINAL: Denies abdominal pain, vomiting. +nausea, diarrhea, reflux GENITOURINARY: Denies dysuria or hematuria. SKIN: Denies rash, itching, or wounds. MUSCULOSKELETAL: Denies back pain, joint pain, or myalgia. NEUROLOGIC: Denies headache, numbness, tingling, or weakness. PSYCH: Denies depression or anxiety. [facility] Past Medical History Medical History BPH w/o urinary obs/LUTS CAD in [place] artery Chronic low back pain without sciatica Dyslipidemia Essential (primary) hypertension GERD without esophagitis Heart attack 02/07/2000 Liver cyst 07/2018 Non-seasonal allergic rhinitis Renal cyst Sensorineural hearing loss Vitamin D deficiency Surgical History Surgical History History of coronary artery stent placement x6 - 1999, 11/2020, 09/2021, 01/23/22 History of hernia repair (~1990) 1990 - History of nasal surgery (~2004) 2004 & 05/2019 Hx of cataract surgery (Unknown) Hx of inguinal herniorrhaphy (~1990) 1990 Stented coronary artery (~2020) 09/2021 in [place] Family History Family History Mother Hypertension Sibling Coronary artery disease Hypercholesteremia Social History Social History Social History: The patient lives with his who is a durable power employment attorney for healthcare. The patient desires to be a full code but desires not to live in a vegetative state. The patient is an ex-smoker. He is retired from [employer]. No alcohol marijuana or illicit drugs. Smoking packs per
[2023-07-03] MEDS: ONDANSETRON HCL ODT 4 MG TABLET 8 MG SUBLINGUAL (09:15)
== END 2023-07-03 09:47 | disposition home or self-care (01) ==
PROVIDERS: Emergency Provider Nurse Practitioner
DX: K21.00 Gastro-esophageal reflux disease with esophagitis, without bleeding (principal); R19.7 Diarrhea, unspecified; Z20.822 Contact with and (suspected) exposure to COVID-19; Z87.891 Personal history of nicotine dependence; N40.0 Benign prostatic hyperplasia without lower urinary tract symptoms; I25.10 Atherosclerotic heart disease of native coronary artery without angina pectoris; E78.5 Hyperlipidemia, unspecified; I10 Essential (primary) hypertension; I25.2 Old myocardial infarction; Z95.5 Presence of coronary angioplasty implant and graft; E55.9 Vitamin D deficiency, unspecified; Z79.82 Long term (current) use of aspirin
CPT/HCPCS: 87426; 99213; A9270; C9803; G0463

== ENCOUNTER 2023-07-21 10:14 | Emergency (ER) | payer MEDICARE, SELFPAY ==
--- NOTE | ~2023-07-21 | XR_ITS ---
XR chest 2V 07/21/2023 10:41 Indication: Cough Procedure: 2 view chest Comparison: Comparison to multiple prior studies sequentially, with oldest reviewed study dated 11/2020. Findings: Heart size normal. Pacemaker leads in expected position. No focal air space disease, pulmon rivas edema, pleural effusion or suspected pneumothorax. Impression: 1: No acute cardiopulmonary disease. Reviewed, dictated and finalized at location B. YIST Impression: 1: No acute cardiopulmonary disease.
[2023-07-21 10:22] VITALS: BP 144/70; PULSE 100; RESP 16; TEMP 36.2; O2SAT 99
--- NOTE | 2023-07-21 10:27 | ED.URI ---
HPI - URI/Sore Throat General Chief Complaint: Upper Respiratory Infection Stated Complaint: COUGH/CONGESTION Source: patient Mode of arrival: ambulatory Limitations: no limitations History of Present Illness HPI Narrative: 82 y/o male with hx CAD and HTN presented for c/o fatigue, chest congestion, cough at night worse, and sob with exertion. Pt tested positive for flu A at home on 07/10, sx onset was 1 week prior. Pt was then prescribed cipro x1 week by ENT without significant improvement. He was then seen by his pcp who prescribed steroid, cough medicine, and doxy. Pt denies any change since taking these medications. Endorses cough is productive of yellow green sputum. Denies cp, palpitations, dizziness, swelling, fever or lethargy. PCP at [facility]. Related Data Home Medications Medication Instructions Recorded Confirmed aspirin 81 mg tablet,delayed 81 mg PO DAILY 01/01/20 07/21/23 release (Adult Low Dose Aspirin) L.acidophil-L.casei-B.bifid-B.longum-FOS 1 cap PO DAILY 07/03/20 07/21/23 2 billion cell-50 mg capsule (Probiotic Blend) nitroglycerin 0.4 mg sublingual 0.4 mg sublingual Q5M PRN chest 01/15/21 07/21/23 tablet pain ecvxyshe-nj-scubn 300 mcg-K 60 1 tablet PO DAILY 01/24/21 07/21/23 mcg-lycop 600 mcg-lutein 300 mcg tablet (Centrum Silver Men) atorvastatin 80 mg tablet (Lipitor) 80 mg PO DAILY 06/09/23 07/21/23 lisinopril 10 mg tablet 20 mg PO DAILY 06/09/23 07/21/23 Allergies Allergy/AdvReac Type Severity Reaction Status Date / Time cefuroxime Allergy Unknown Unknown Verified 07/21/23 10:30 Review of Systems Review of Systems: CONSTITUTIONAL: Denies body aches, fever, chills, or sweats. EYES: Denies visual changes, redness, or discharge. ENT: Denies rhinorrhea, congestion, sore throat, or otalgia. CARDIOVASCULAR: Denies chest pain, palpitations, or edema. RESPIRATORY: Reports cough, sob, wheezing. GASTROINTESTINAL: Denies abdominal pain, nausea, vomiting, or diarrhea. SKIN: Denies rash, or wounds. MUSCULOSKELETAL: Denies back pain, joint pain, or myalgia. NEUROLOGIC: Denies headache, numbness, tingling, or weakness. All systems reviewed & are unremarkable except as noted in HPI and below PMFSH Past Medical History Medical History BPH w/o urinary obs/LUTS CAD in [place] artery Chronic low back pain without sciatica Dyslipidemia Essential (primary) hypertension GERD without esophagitis Heart attack 02/07/2000 Liver cyst 07/2018 Non-seasonal allergic rhinitis Renal cyst Sensorineural hearing loss Vitamin D deficiency Surgical History Surgical History History of coronary artery stent placement x6 - 1999, 11/2020, 09/2021, 01/23/22 History of hernia repair (~1990) 1990 - History of nasal surgery (~2004) 2004 & 05/2019 Hx of cataract surgery (Unknown) Hx of inguinal herniorrhaphy (~1990) 1990 Stented coronary artery (~2020) 09/2021 in [place] Family History Family History Mother Hypertension Sibling Coronary artery disease Hypercholesteremia Social History Social History Social History: The patient lives with his who is a durable power bankruptcy attorney for healthcare. The patient desires to be a full code but desires not to live in a vegetative state. The patient is an ex-smoker. He is retired from [employer]. No alcohol marijuana or illicit drugs. Smoking packs per day: 1 Smoking cigarettes per day: 20.0 Years smoked: 20 Smoking pack-years: 20.00 Smoking status: Former smoker Tobacco type: cigarettes Second hand tobacco smoke exposure: No Smoking end date: 07/26/81 Alcohol intake: current Alcohol use details: consumes 1 glass of wine rarely Substance use: never Substance use type: does not use
== END 2023-07-21 11:10 | disposition short-term general hospital (02) ==
PROVIDERS: Emergency Provider Nurse Practitioner Family
DX: R06.00 Dyspnea, unspecified (principal); Z87.891 Personal history of nicotine dependence; N40.0 Benign prostatic hyperplasia without lower urinary tract symptoms; I25.10 Atherosclerotic heart disease of native coronary artery without angina pectoris; E11.9 Type 2 diabetes mellitus without complications; I10 Essential (primary) hypertension; K21.9 Gastro-esophageal reflux disease without esophagitis; I25.2 Old myocardial infarction; E55.9 Vitamin D deficiency, unspecified; Z95.5 Presence of coronary angioplasty implant and graft; Z79.82 Long term (current) use of aspirin
CPT/HCPCS: 71046; 99213; G0463

== ENCOUNTER 2023-07-21 11:28 | Emergency (ER) | payer MEDICARE, SELFPAY ==
[2023-07-21 11:56] VITALS: BP 114/70; PULSE 95; RESP 16; TEMP 36.4; O2SAT 97
[2023-07-21 14:59] VITALS: BP 156/67; PULSE 87; RESP 16; O2SAT 97
--- NOTE | 2023-07-21 15:01 | ED.URI ---
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 Patient notes that he has been having a cough for about 3 weeks which is unchanged. It 1st started with both diarrhea and respiratory illness. He notes that he contacted his ENT who prescribed him 10 days of ciprofloxacin for likely respiratory infection. After 7 days he was not improving and he discussed this with his primary care doctor. They transitioned him to prednisone and doxycycline. He notes he has had a continued cough which is productive in nature as well as nasal congestion. He denies any fever, denies any sick contacts. He does note that he has some midsternal chest tightness that occurs only after violently coughing. He attempted to call his primary care doctor who cannot get him in for the next week. He did go to an urgent care today who did an x-ray and sent him into the emergency department for further evaluation. He states he is here to be seen because his cough has been persistent and he additionally is having some exertional shortness of breath and fatigue. Related Data Home Medications Medication Instructions Recorded Confirmed aspirin 81 mg tablet,delayed 81 mg PO DAILY 01/01/20 07/21/23 release (Adult Low Dose Aspirin) L.acidophil-L.casei-B.bifid-B.longum-FOS 1 cap PO DAILY 07/03/20 07/21/23 2 billion cell-50 mg capsule (Probiotic Blend) nitroglycerin 0.4 mg sublingual 0.4 mg sublingual Q5M PRN chest 01/15/21 07/21/23 tablet pain kholhwjo-pc-jklof 300 mcg-K 60 1 tablet PO DAILY 01/24/21 07/21/23 mcg-lycop 600 mcg-lutein 300 mcg tablet (Centrum Silver Men) atorvastatin 80 mg tablet (Lipitor) 80 mg PO DAILY 06/09/23 07/21/23 lisinopril 10 mg tablet 20 mg PO DAILY 06/09/23 07/21/23 Allergies Allergy/AdvReac Type Severity Reaction Status Date / Time cefuroxime Allergy Unknown Unknown Verified 07/21/23 10:30 Review of Systems Review of Systems: All systems reviewed & are unremarkable except as noted in HPI and below PMFSH Past Medical History Medical History BPH w/o urinary obs/LUTS CAD in [place] artery Chronic low back pain without sciatica Dyslipidemia Essential (primary) hypertension GERD without esophagitis Heart attack 02/07/2000 Liver cyst 07/2018 Non-seasonal allergic rhinitis Renal cyst Sensorineural hearing loss Vitamin D deficiency Surgical History Surgical History History of coronary artery stent placement x6 - 1999, 11/2020, 09/2021, 01/23/22 History of hernia repair (~1990) 1990 - History of nasal surgery (~2004) 2004 & 05/2019 Hx of cataract surgery (Unknown) Hx of inguinal herniorrhaphy (~1990) 1990 Stented coronary artery (~2020) 09/2021 in [place] Family History Family History Mother Hypertension Sibling Coronary artery disease Hypercholesteremia Social History Social History Social History: The patient lives with his who is a durable power traffic law attorney for healthcare. The patient desires to be a full code but desires not to live in a vegetative state. The patient is an ex-smoker. He is retired from [employer]. No alcohol marijuana or illicit drugs. Smoking packs per day: 1 Smoking cigarettes per day: 20.0 Years smoked: 20 Smoking pack-years: 20.00 Smoking status: Former smoker Tobacco type: cigarettes Second hand tobacco smoke exposure: No Smoking end date: 07/26/81 Alcohol intake: current Alcohol use details: consumes 1 glass of wine rarely Substan
--- NOTE | 2023-07-21 15:05 | ECG_ITS ---
Measurements Intervals [place] Rate: 74 P: 25 ME: 172 QRS: -31 QRSD: 138 T: 101 QT: 389 QTc: 434 Interpretive Statements SINUS RHYTHM WITH OCCASIONAL SUPRAVENTRICULAR PREMATURE COMPLEXES MARKED LEFT AXIS DEVIATION [QRS AXIS < -30] LEFT BUNDLE BRANCH BLOCK [120+ ms QRS DURATION, 80+ ms Q/S IN V1/V2, 85+ ms R IN I/aVL/V5/V6] COMPARED TO ECG 06/29/2021 12:50:56 SINUS RHYTHM NOW PRESENT Electronically Signed On 07-21-2023 21:08:04 HISTORIC PRESERVATIONIST by Peggy Moran M.D.
[2023-07-21 15:18] VITALS: O2SAT 98
[2023-07-21 15:24] LABS: Basophils Absolute Auto 0.1 K/mm3 (0.0-0.1); Basophils Percent Auto 0.8 % (0.2-1.2); Eosinophils Absolute Auto 0.2 K/mm3 (0-0.3); Eosinophils Percent Auto 2.3 % (0-4.4); Hematocrit 42.1 % (42.0-52.0); Immature Granulocyte Absolute 0.44 K/mm3 (0.00-0.031); Lymphocytes Absolute Auto 2.07 K/mm3 (0.9-3.2); Lymphocytes Percent Auto 23.5 % (18.3-44.2); Mean Corpuscular HGB Conc 33.3 g/dl (32-36); Mean Corpuscular Hemoglobin 33.9 pg (26-34); Mean Corpuscular Volume 101.9 fl (80-100); Mean Platelet Volume 9.4 fl (7.4-10.4); Monocytes Absolute Auto 1.4 K/mm3 (0.1-0.6); Monocytes Percent Auto 16.2 % (2.6-8.5); Neutrophils Absolute Auto 4.6 K/mm3 (1.3-6.7); Neutrophils Percent Auto 52.2 % (45.5-73.1); Platelet Count Result 251 k/mm3 (150-375); Red Blood Count 4.13 M/mm3 (4.6-6.20); Red Cell Distribution Width 13.1 % (11.5-14.5); White Blood Count 8.8 K/mm3 (4.5-10.0)
[2023-07-21 15:34] LABS: Alanine Aminotransferase 29 U/L (6-50); Albumin Level 3.4 g/dL (3.5-5.1); Alkaline Phosphatase 77 U/L (38-126); Anion Gap 5 mmol/L (8-16); Aspartate Amino Transferase 32 U/L (17-59); Bilirubin,Total 0.7 mg/dL (0.2-1.3); Blood Urea Nitrogen 21 mg/dL (9-20); Calcium 9.3 mg/dL (8.4-10.2); Carbon Dioxide 25 mmol/L (22-30); Chloride 107 mmol/L (98-107); Estimated CRCL calculation 51 ml/min; Estimated Glomerular Filt Rate > 60; Glucose 102 mg/dL (65-110); Potassium 3.9 mmol/L (3.4-5.0); Sodium 137 mmol/L (137-145)
[2023-07-21 15:44] LABS: INR 1.1; Partial Thromboplastin Time 29.2 SECONDS (22.3-36.8); Prothrombin Time 14.4 Seconds (11.1-14.7)
[2023-07-21 15:45] LABS: NT Pro B Type Natriuretic Pept 240 pg/mL (19.9-100); Troponin I < 0.012 ng/mL (0.000-0.034)
[2023-07-21 15:49] LABS: D Dimer 1.05 ug/mL (<0.48)
[2023-07-21 16:00] LABS: Influenza A QL RT-PCR Negative (Negative); Influenza B QL RT-PCR Negative (Negative); RSV RNA, RT-PCR Negative (Negative); SARS-CoV-2 RNA PCR Negative (Negative)
--- NOTE | 2023-07-21 16:00 | PC.NURSE ---
called lab at 1531 to add on CRP and called lab again at this time to remind them about the CRP
[2023-07-21 16:21] LABS: CRP < 0.5 mg/dL (<1.0)
[2023-07-21 16:34] VITALS: BP 131/65; PULSE 88; RESP 20; O2SAT 97
== END 2023-07-21 16:39 | disposition home or self-care (01) ==
PROVIDERS: Emergency Provider Student in an Organized Health Care Education/Training Program
DX: R05.2 Subacute cough (principal); E78.5 Hyperlipidemia, unspecified; K21.9 Gastro-esophageal reflux disease without esophagitis; I10 Essential (primary) hypertension; I25.10 Atherosclerotic heart disease of native coronary artery without angina pectoris; E55.9 Vitamin D deficiency, unspecified; Z87.891 Personal history of nicotine dependence; Z20.822 Contact with and (suspected) exposure to COVID-19
CPT/HCPCS: 36415; 71046; 80053; 83880; 84484; 85025; 85380; 85610; 85730; 86140; 87637; 93005; 99284

== ENCOUNTER 2024-03-04 08:51 | Emergency (ER) | payer MEDICARE, SELFPAY ==
--- NOTE | ~2024-03-04 | US_ITS ---
EXAMINATION: US soft tissue LE RT DATE: 03/04/2024 09:44 INDICATION: Right lower limb swelling. TECHNIQUE: Multiple grayscale and Doppler ultrasound images of the right lower limb were obtained. COMPARISON: Right ankle radiographs 03/04/2024 FINDINGS: The Achilles tendon is normal. No tear. There is no abnormal mass. IMPRESSION: 1. Normal Achilles tendon. Reviewed, dictated and finalized at location A. IMPRESSION: 1. Normal Achilles tendon.
--- NOTE | ~2024-03-04 | US_ITS ---
EXAMINATION: US venous doppler LE RT DATE: 03/04/2024 09:43 INDICATION: Right lower limb pain and swelling. TECHNIQUE: Grayscale ultrasound images without and with compression and Doppler ultrasound images of the right lower extremity veins were obtained. COMPARISON: None. FINDINGS: The visualized portions of right common femoral vein, profunda (deep) femoral vein, femoral vein, pop liteal vein, peroneal veins, posterior tibial veins, and greater saphenous vein outflow are patent. IMPRESSION: 1. No deep venous thrombosis. Reviewed, dictated and finalized at location A.
--- NOTE | ~2024-03-04 | XR_ITS ---
EXAMINATION: XR ankle RT min 3V DATE: 03/04/2024 09:39 INDICATION: Right ankle pain and swelling. TECHNIQUE: 4 views of right ankle were obtained. COMPARISON: None. FINDINGS: Bone alignment is normal. There is a punctate calcification distal to medial malleolus. 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 There is an enthesophyte at plantar aspect of calcaneal tuberosity . Ankle soft tissue swelling is noted. IMPRESSION: 1. Punctate calcification distal to medial malleolus, which may be an acute avulsion fracture or a ch ronic finding. Reviewed, dictated and finalized at location A. IMPRESSION: 1. Punctate calcification distal to medial malleolus, which may be an acute avu lsion fracture or a chronic finding.
[2024-03-04 08:59] VITALS: BP 128/87; PULSE 69; RESP 18; TEMP 36.8; O2SAT 97
--- NOTE | 2024-03-04 09:06 | ED.LOWEXIN ---
HPI - Extremity Injury (Lower) General Chief Complaint: Extremity Injury, Lower Stated Complaint: Injured right leg Time Seen by Provider: 03/04/24 09:05 Source: patient and family () Mode of arrival: ambulatory Limitations: no limitations History of Present Illness HPI Narrative: 83-year-old male presents with right ankle pain and swelling after walking and stretching yesterday. No distinct injury or fall or trauma. He is on clopidogrel and aspirin for cardiac stents and a pacemaker but denies any other anticoagulation. No prior surgeries in this extremity or need to see orthopedic surgery. He has been taking Tylenol for pain. He notes the pain is primarily behind his ankle. He tried a heating pad yesterday which helped and he was able to stand and walk around. Today he trialed ice which also helped. Related Data Home Medications Medication Instructions Recorded Confirmed aspirin 81 mg tablet,delayed 81 mg PO DAILY 01/01/20 07/21/23 release (Adult Low Dose Aspirin) L.acidophil-L.casei-B.bifid-B.longum-FOS 1 cap PO DAILY 07/03/20 07/21/23 2 billion cell-50 mg capsule (Probiotic Blend) nitroglycerin 0.4 mg sublingual 0.4 mg sublingual Q5M PRN chest 01/15/21 07/21/23 tablet pain cahbwmjj-as-awsuz 300 mcg-K 60 1 tablet PO DAILY 01/24/21 07/21/23 mcg-lycop 600 mcg-lutein 300 mcg tablet (Centrum Silver Men) atorvastatin 80 mg tablet (Lipitor) 80 mg PO DAILY 06/09/23 07/21/23 lisinopril 10 mg tablet 20 mg PO DAILY 06/09/23 07/21/23 Allergies Allergy/AdvReac Type Severity Reaction Status Date / Time cefuroxime Allergy Unknown Unknown Verified 03/04/24 09:03 [facility] Past Medical History Medical History BPH w/o urinary obs/LUTS CAD in [place] artery Chronic low back pain without sciatica Dyslipidemia Essential (primary) hypertension GERD without esophagitis Heart attack 02/07/2000 History of pacemaker Liver cyst 07/2018 Non-seasonal allergic rhinitis Renal cyst Sensorineural hearing loss Vitamin D deficiency Surgical History Surgical History History of coronary artery stent placement x6 - 1999, 11/2020, 09/2021, 01/23/22 History of hernia repair (~1990) 1990 - triple History of nasal surgery (~2004) 2004 & 05/2019 Hx of cataract surgery (Unknown) Hx of inguinal herniorrhaphy (~1990) 1990 Stented coronary artery (~2020) 09/2021 in [place] Family History Family History Mother Hypertension Sibling Coronary artery disease Hypercholesteremia Social History Social History Social History: The patient lives with his who is a durable power admitted attorneys for healthcare. The patient desires to be a full code but desires not to live in a vegetative state. The patient is an ex-smoker. He is retired from [employer]. No alcohol marijuana or illicit drugs. Smoking packs per day: 1 Smoking cigarettes per day: 20.0 Years smoked: 20 Smoking pack-years: 20.00 Smoking status: Former smoker Tobacco type: cigarettes Second hand tobacco smoke exposure: No Smoking end date: 07/26/81 Alcohol intake: current Alcohol use details: consumes 1 glass of wine rarely Substance use: never Substance use type: does not use Lack of Transportation: No Lack of Food: Never True Current Housing: I Have Housing Concerned About Future Housing: No Difficulty Paying Gas/Electric Bills: No Difficulty Paying for Meds: No Currently Unemployed: No Education: Bachelor's Degree Difficulty w/ Childcare or Family Care: No Living arrangements: with family Gender identity (if verbalized by the patient): Male Spiritual care concerns: No Exam Narrative: GENERAL: Well-appearing, well-nourished, and in no acute distress. HEAD: Normoce
== END 2024-03-04 11:00 | disposition home or self-care (01) ==
PROVIDERS: Emergency Provider Student in an Organized Health Care Education/Training Program
DX: M61.9 Calcification and ossification of muscle, unspecified (principal); M25.571 Pain in right ankle and joints of right foot; I25.10 Atherosclerotic heart disease of native coronary artery without angina pectoris; E78.5 Hyperlipidemia, unspecified; I10 Essential (primary) hypertension; Z87.891 Personal history of nicotine dependence
CPT/HCPCS: 73610; 76882; 93971; 99284

== ENCOUNTER 2024-12-25 11:53 | Outpatient (CLI) | payer MEDICARE, SELFPAY ==
--- NOTE | ~2024-12-25 | XR_ITS ---
EXAMINATION: XR chest 2V 12/25/2024 12:07 INDICATION: Dyspnea PROCEDURE: 2 view chest COMPARISON: Comparison to multiple prior studies sequentially, with oldest reviewed study dated 08/2020. FINDINGS: The lungs are clear. The cardiomediastinal silhouette is within normal limits. There are no pleural effusions. There is no pneumothorax suspected. Pacemaker leads are stable. Chronic eleva tion the right diaphragm. IMPRESSION: 1: NO ACUTE CARDIOPULMONARY DISEASE. Reviewed, dictated and finalized at location A.
--- OUTSIDE RECORDS SUMMARY | 2024-12-25 12:09 | XMS_ITS | Continuity of Care Document ---
Author Organization Ophthalmology [facility] Address [address] [facility] [address] [place] [address] Phone Care Team Providers Care Polisher And Sander Name Role Phone Ernesto Day MD, MD Unavailable Unavailab le Allergies, Adverse Reactions, Alerts Substance Reaction Status Criticality cefuroxime Active No Information CEFUROXIME AXETIL Active No Informa tion Medications Medication Instructions Dosage Effective Dates (start - stop) Status Comments aspirin 81 mg Tab take 1 tablet (81MG) by oral route every day 81 MG - Active Vilma 180 mg Tab take 1 tablet (180MG) by oral route every day - Active Singulair 10 mg Tab take 1 tablet (10MG) by oral route every day in the evening 10 MG - Active Alrex 0.2 % eye drops,suspension instill 1 drop by ophthalmic route 4 times every day into affected eye(s) 1.00 drop - Active famotidine 20 mg tablet take 1 tablet by oral route 2 times every day 20 MG - Active Lipitor 80 mg tablet take 1 tablet by oral route every day 80 MG - Active alprazolam 0.25 mg disintegrating tablet take 1 tablet by oral route 3 times every day 0.25 MG - Active CLOPIDOGREL (unknown strength) take 1 tablet by oral route every day Not Available - Active DUTASTERIDE (unknown strength) take 1 capsule by oral route every day Not Available - Active FLONASE ALLERGY RELIEF (unknown strength) inhale 2 spray by intranasal route every day in each nostril Not Available - Active ATROVENT HFA (unknown strength) inhale 2 puff by inhalation route 4 times every day Not Available - Active lisinopril (unknown strength) Not Available - Active pantoprazole (unknown strength) Not Available - Active tamsulosin (unknown strength) Not Available - Active CENTRUM SILVER (unknown strength) Not Available - Active Artificial Tears Eye Drops as needed - Active Procedures Procedure Date OFFICE/OUTPATIENT VISIT, EST GDX Retina OFFICE/OUTPATIENT VISIT, EST EYE EXAM, NEW PATIENT OFFICE/OUTPATIENT VISIT, EST REFRACTION AFTER CATARACT LASER SURGERY Oct- OFFICE/OUTPATIENT VISIT, EST OFFICE/OUTPATIENT VISIT, EST SPECIAL EYE EXAM, SUBSEQUENT SPECIAL EYE EXAM, SUBSEQUENT AFTER CATARACT LASER SURGERY POSTOP FOLLOW-UP VISIT POSTOP FOLLOW-UP VISIT CATARACT SURG W/IOL, 1 STAGE DILATED FUNDUS EVAL DONE PRE-SURG EYE MEASURES DOC'D Not medically necessary [facility] [place] POSTOP FOLLOW-UP VISIT POSTOP FOLLOW-UP VISIT CATARACT SURG W/IOL, 1 STAGE DILATED FUNDUS EVAL DONE PRE-SURG EYE MEASURES DOC'D OFFICE/OUTPATIENT VISIT, EST OPHTHALMIC BIOMETRY OPHTHALMIC BIOMETRY SPECIAL EYE EXAM, SUBSEQUENT SPECIAL EYE EXAM, SUBSEQUENT Cataract Glasses Not medically necessary [facility] OFFICE/OUTPATIENT VISIT, EST VISUAL FUNCT STATUS ASSESS EYE EXAM, NEW PATIENT REFRACTION EYE EXAM, NEW PATIENT VISUAL FUNCT STATUS ASSESS REFRACTION Results Test Name Date and Time Measure Units Reference Range Abnormal Flag Status Commen ts Panel Description: [id number] Final Image Zeiss Result 1 Advance Directives Directive Yes / No Effective Date File Name No Information Encounters Encounter Description Practice Location Reason(s) For Visit Diagnoses Date Provider Providers Copied on Encounter OFFICE/OUTPA TIENT VISIT, EST [facility], [address], [id number], [place] tel:[phone] [facility] FBS OD (chief complaint)r etina (chief complaint) Dry eye syndrome of bilateral lacrimal glandsPresenc e of intraocular lensDiplopiaE piretinal membrane (ERM), bilateral 4 Barb Orozco. [address], [address], [place], [place], [id number], [place]. tel:[phone] Referring Provider: Ernesto Day MD P, [address], [place], [address]. tel:[phone] OFFICE/OUTPA TIENT VISIT, EST [facility], [address] [place] [address], [id number], [place] tel:[phone] [facility] irritation OD (chief complaint) Dry eye syndrome of bilateral lacrimal glandsPresenc e of intraocular lensDiplopia 3 Barb Orozco. [address], [address], [place], [place], [id number], [place]. tel:[phone] Referring Provider: Ernesto Day MD P, [address], [place], [address]. tel:[phone] [facility], [address] [place] [address], [id number], tel:[phone] [facility] tearing and burning (chief complaint)b lurry vision (chief complaint) Lens replaced by other meansDiplopia Vitreous degeneration of both eyesDry eye syndrome of bilateral lacrimal glands 2 Jack Li. [address], [address], [place], [place], [id number], [place]. tel:[phone] Referring Provider: Kalpana Nelson MD, [address] , [place], [address]. tel:[phone] OFFICE/OUTPA TIENT VISIT, EST [facility], [address] [place] [address], [id number], [place] tel:[phone] [facility] Office IOL check (chief complaint)D ry eyes (chief complaint) Vitreous degeneration of both eyesLens replaced by other meansDiplopia 6 Barb Orozco. [address], [place], [place], [id number], [place]. tel:[phone] Referring Provider: Ernesto Day MD P, [address], [place], [address]. tel:[phone] [facility], [address] [place] [address], [place], [place], [id number], [place] tel:[phone] [facility] No Information Oct 5 Garland Shepard. [address], [address], [place], [place], [id number], [place]. tel:[phone] Referring Provider: Devyn Yu, [address], [place], [address]. tel:[phone] OFFICE/OUTPA TIENT VISIT, EST [facility], [address] [place] [address], [place], [place], [id number], [place] tel:[phone] [facility] Yag evaluation (chief complaint)I OL check (chief complaint)D ry eyes (chief complaint) Lens replaced by other meansVitreous degeneration of both eyesAfter-cat aract obscuring vision, rightDry eye syndrome of bilateral lacrimal glands Apr- 5 Alfredo OD Amber. [address], [address], [place], [place], [id number], [place]. tel:[phone] Referring Provider: Amber Fuentes OD, [address], [place], [address]. tel:[phone] OFFICE/OUTPA TIENT VISIT, EST [facility], [address] [place] [address], [id number], [place] tel:[phone] [facility] Vitreous degenerationL ens replaced by other means 3 Barb Orozco. [address], [id number], [place]. tel:[phone] Referring Provider: Ernesto Yu, [address], [place], [address]. tel:[phone] [facility], [address] [place] [address], [id number], tel:[phone] [facility] [place] No Information 2 Barb Orozco. [address], [place], [address], [place]. tel:[phone] Referring Provider: Ernesto Yu, [address] [place] [address], [address]. tel:[phone] [facility], [address] [place] [address], [id number], tel:[phone] [facility] vision is improved OD (chief complaint) No Information 2 Barb Orozco. [address], [address] [place] [address], [id number], [place]. tel:[phone] Referring Provider: Ernesto Yu, [address] [place] [address], [address]. tel:[phone] [facility], [address] [place] [address], [id number], tel:[phone] [facility] vision is improved OD (chief complaint) No Information 2 Barb Orozco. [address], [place], [place], [id number], [place]. tel:[phone] Referring Provider: Ernesto Yu, [address] [place] [address], [address]. tel:[phone] [facility], [address] [place] [address], [id number], tel:[phone] [facility] No Information 2 Barb Orozco. [address], [place], [place], [address], [place]. tel:[phone] Referring Provider: Ernesto Yu, [address], [place], [address]. tel:[phone] [facility], [address] [place] [address], [id number], tel:[phone] [facility] No Information 2 Barb Orozco. [address], [address], [place], [place], [id number], [place]. tel:[phone] Referring Provider: Ernesto Yu, [address], [place], [address]. tel:[phone] [facility], [address] [place] [address], [id number], tel:[phone] [facility] vision is improved OS (chief complaint) No Information 2 Barb Orozco. [address], [address], [id number], [place]. tel:[phone] Referring Provider: Ernesto Yu, [address], [place], [address]. tel:[phone] [facility], [address] [place] [address], [id number], tel:[phone] [facility] no complaints OS (chief complaint) No Information 2 Barb Orozco. [address], [address], [id number], [place]. tel:[phone] Referring Provider: Ernesto Yu, [address], [place], [address]. tel:[phone] [facility], [address] [place] [address], [id number], [place] tel:[phone] [facility] No Information 2 Barb Orozco. [address], [address], [place], [place], [address], [place]. tel:[phone] Referring Provider: Ernesto Yu, [address], [place], [address]. tel:[phone] OFFICE/OUTPA TIENT VISIT, EST [facility], [address] [place] [address], [id number], [place] tel:[phone] [facility] Senile nuclear sclerosisVitr eous degeneration 2 Barb Orozco. [address], [address], [place], [place], [id number], [place]. tel:[phone] Referring Provider: Ernesto Yu, [address], [place], [address]. tel:[phone] OFFICE/OUTPA TIENT VISIT, EST [facility], [address] [place] [address], [place], [place], [id number], [place] tel:[phone] [facility] Office Myopia 2 Emmanuel Capellan. [address], [address], [place], [place], [id number], [place]. tel:[phone] Referring Provider: Timi Benitez, [address], [place], [address]. tel:[phone] [facility], [address] [place] [address], [id number], [place] tel:[phone] [facility] Senile nuclear sclerosis 1 Barb Orozco. [address], [place], [place], [address], [place]. tel:[phone] Family History Family Member Type Diagnosis Age At Onset Mother Problem (finding) glaucoma Problem No family histor y of Macular degeneration Payers Payer name Insurance type Covered constitution party ID Authoriza tisunil(s) [employer] Medicare CI [id number] Social History Type Description Quantity Date Captured Comments Alcohol Use Details 1 drink occasionally Caffeine Use Details No Tobacco Use Status Ex-cigarette smoker 024 Smoking Status Former smoker Smoking Tobacco Use Details Cigarette: Age Stopped: 46 Cigarette: No Details Available Sex Male Vital Signs Date / Time: Height Weight BMI Pulse Rate Blood Pressure Temperature Respiratory Rate Body Surface Area Head Circumference Head Circ. Percentile Wt./Tyler. Percentile BMI percentile Pulse Ox Inhaled Ox 10:11 AM 70.00 in 79.379 kg (175.00 lbs) 25.1 1 kg/m eter (2) Chief Complaint And Reason For Visit From encounter dated '02/09/2024 10:20'. FBS OD (chief complaint). Description: The 83 year old male presents for evaluation of FBS OD.Patient reports a constant FBS OD>OS duration about one week. He says he thinks it has a lot to due with worsening dry eye. Uses CPAP. Patient has been using gel gtts QHS OU and Systane complete QAM OU Loteprednol PRN OD. retina (chief complaint). Description: The patient is present for evaluation of retina.Patient reports he went and seen Dr. Winters @ [facility] [place] and he was told he had a possible ERM OU he wanted to have that evaluated. Reason For Referral Reason For Referral No Information Plan Of Treatment Date Type Action Status Goal Tobacco cessation counseling completed Goal Tobacco cessation counseling completed History Of Present Illness Encounter Date Complaint History Of Prese nt Illness FBS OD The 83 year old male presents for evaluation of FBS OD.Patient reports a constant FBS OD>OS duration about one week. He says he thinks it has a lot to due with worsening dry eye. Uses CPAP. Patient has been using gel gtts QHS OU and Systane complete QAM OU Loteprednol PRN OD. retina The patient is p resent for evaluation of retina.Patient reports he went and seen Dr. Winters @ [facility] [place] and he was told he had a possible ERM OU he wanted to have that evaluated. irritation OD The 82 year old male presents for evaluation of irritation OD. Pt states that since June he has had irritation on and off with both eyes, but mostly OD. He has a FBS and it is always watering down his cheek. His vision often comes in and out and seems cloudy. He does use Systane Complete and Refresh Gel QHS. He says that generally this helps, but there are times the problem still persists. He says that it isn't as bad as it originally was, but still irritating.Previous Dr. Santiago notes indicate maybe trying Restasis in the future. tearing and burning The 81 year old male presents for evaluation of tearing and burning OD, started about two months ago, he has been having watering daily with some burning, no itching, occasionally feels like there's an eye lash in his eye or grit, but not all the time, feels dry. States its getting worse over last couple weeks. Been using Systane and Refresh. He is wondering if C-Pap machine could be drying his eyes out. blurry vision The patient is p resent for evaluation of blurry vision OD, over last couple months he has noticed blurry vision with DV more then NV, seems like his OU are not focused has prism in OD and thinks t needs to be adjusted, but as the day goes on he feels like vision clears up ad get better. Driving is bothersome both during daytime and night time, has the glare from headlights, having trouble seeing traffic signs he almost has to be at sign to read it. IOL check The 75 year old male presents for evaluation of IOL check in the right > left. It started about 6 month(s) ago. The symptom is constant. The condition is stable. Patient S/P YAG PC OU. Patient with C/O not being able to focus with or with out glasses rx, states double image Dry eyes The patient is p resent for evaluation of Dry eyes in the right > left. It started about 2 month(s) ago. The symptom is constant. The condition is stable. Patient states AT'S PRN with mild improvement Yag evaluation The 74 year old male presents for evaluation of Yag evaluation in the right eye. It started about 6 month(s) ago. The symptom is constant. The condition is limiting patient's ability to read. Patient ref by DAYAMI Holloway IOL check The patient is p resent for evaluation of IOL check in the right > left. It started about 2 year(s) ago. The symptom is constant. The condition is limiting patient's ability to read OD. Patient S/P Toric OU YAG OS. Dry eyes The patient is p resent for evaluation of Dry eyes in the right > left. It started about 2 month(s) ago. The symptom is constant. The condition is stable. Patient using AT''S PRN with mild improvement. vision is improved vision is imp roved OD vision is improved vision is imp roved OD vision is improved vision is imp roved OS no complaints no complaints OS Functional Status Date Functional Assessmen t No Information Instructions Date Instruction Additional Infor alina Impression/Plan Related to Epire tinal membrane (ERM), bilateral Impression/Plan Related to Dry e ye syndrome of bilateral lacrimal glands Impression/Plan Related to Prese nce of intraocular lens Impression/Plan Related to Diplo olga Impression/Plan Related to Prese nce of intraocular lens Impression/Plan Related to Diplo olga Impression/Plan Related to Dry e ye syndrome of bilateral lacrimal glands Impression/Plan Related to Lens replaced by other means Impression/Plan Related to Diplo olga Impression/Plan Related to Vitre ous degeneration of both eyes Impression/Plan Related to Dry e ye syndrome of bilateral lacrimal glands Impression/Plan - st able, s/p YAG PC OS Related to Lens replaced by other means Impression/Plan - Ne w glasses today with Prism for the first time. Related to Diplopia Follow up - RTO 1 year for comp exam Impression/Plan - No evidence of retinal pathology. All signs and risks of retinal detachment and tears were discussed in detail. Patient instructed to call the office immediately if any symptoms noted. Educational materials provided:Flashers/floaters. Related to Vitreous degeneration of both eyes Oct- Impression/Plan - st able, s/p YAG PC OS Related to Lens replaced by other means Impression/Plan - No evidence of retinal pathology. All signs and risks of retinal detachment and tears were discussed in detail. Patient instructed to call the office immediately if any symptoms noted. Related to Vitreous degeneration of both eyes Apr- Impression/Plan - Di scussed dx in detail with pt today. Pt will schedule YAG PC OD today. Referred by DAYAMI Plummer-Dr. Holloway. Related to After-cataract obscuring vision, right Oct- Impression/Plan - No evidence of permanent changes to the cornea. Explained condition does not have a cure and will need artificial tears for maintenance. Related to Dry eye syndrome of bilateral lacrimal glands - Return in 1 year w aisha Day MD for Complete Exam. 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 Related to Lens replaced by other means - OD sched 04/11/12 Related to Ca taract 1week, 1st eye Vitreous Detachment, OU - stable Related to Vitreous Detachment Cataract, Nuclear Sc lerosis, OS>OD - discussed/good candidate for toric lens, aim distance, OS then OD Related to Cataract, Nuclear Sclerosis - Follow up with MPD for Cat Eval next available appt Related to Cataract, Nuclear Sclerosis Myopia, OU Related to Myopi a Cataract, Nuclear Sc lerosis, OU - appears to account for visual changes; no other pathology noted - Discussed cataract diagnosis with the patient. Discussed and reviewed treatment options for cataracts. Risks and benefits of surgical treatment were discussed and understood. Patient will consider surgical treatment. Discussed toric IOL option. Related to Cataract, Nuclear Sclerosis - 1 year follow up exam. Related to Cataract, Nuclear Sclerosis Cataract, Nuclear Sc lerosis, OU - mild - Discussed cataract diagnosis with the patient. No treatment is required at this time. New glasses Rx given today. Related to Cataract, Nuclear Sclerosis Assessments Type Assessment Date assessment Dry eye syndrome of bilateral la crimal glands impression Dry eye syndrome of bilateral lacrimal glands: H04.123 pt uses C-PAP which is contributing, MGD, pt denies rosacea assessment Presence of intraocular lens Jan impression Presence of intraocu lar lens: Z96.1. Toric OU c MPD 2011, S/P YAG OU assessment Diplopia impression Diplopia: H53.2. OU- Rxed prism in 2015 c MPD assessment Epiretinal membrane (ERM), bilat eral impression Epiretinal membrane (ERM), bilateral: H35.373.MAC OCT: very mild central ERM OU Patient Care Teams Name Effective Dates (start - stop) Status Members No Information
--- OUTSIDE RECORDS SUMMARY | 2024-12-25 12:09 | XMS_ITS | Clinical Summary ---
Author Organization [facility] Address [address] [facility] [place] [address] Phone Care Team Providers Care Steeplechase Jockey Name Role Phone Shania Nelson MD Primary Care Provider Allergies Active Allergy Reactions Criticality Noted Date Comments Cefuroxime Nausea and Vomiting Low 01/03/2019 Cefuroxime Axetil Unknown 06/28/2020 Cefuroxime Sodium Unknown 06/28/2020 Cephalexin Nausea and Vomiting Low 11/04/2021 Medications azelastine (ASTELIN) 137 mcg/actuation nasal spray 1 time daily as needed. 2 Active dutasteride (AVODART) 0.5 mg Capsule Take 0.5 mg by mouth daily. 2 Active ipratropium bromide 42 mcg (0.06 %) nasal spray (ATROVENT) 1 time daily as needed. 2 Active Lacto no.37-B.animali s,longum 142 mg (10 billion cell) Capsule Take 1 Capsule by mouth. Active montelukast (SINGULAIR) 10 mg tablet Take 10 mg by mouth daily. 2 Active tamsulosin (FLOMAX) 0.4 mg capsule Take 0.4 mg by mouth daily. 2 Active multivit-min/FA /lycopen/lutein (CENTRUM SILVER MEN ORAL) 2 Active famotidine (PEPCID) 20 mg tablet Take 20 mg by mouth 2 times daily. 2 Active fluocinolone acetonide oiL (DermOtic Oil) 0.01 % Drops Administer 5 Drops in both ears 2 times daily. 20 mL 1 2 Active Additional Information Patient taking differently:5 Drop Both EarsTWO TIMES DAILY PRN, Reported on 12/22/2023 ALPRAZolam (XANAX) 0.25 mg tabletIndicatio ns:Anxiety,Palp itations Take 1 Tablet (0.25 mg) by mouth 2 times daily as needed (for anxiety, palpitations). 60 Tablet 2 Active nitroglycerin (NITROSTAT) 0.4 mg Tablet, Sublingual Place 1 Tablet (0.4 mg) under tongue every 5 minutes as needed for Chest Pain. 30 Tablet 2 4 Active lisinopriL (PRINIVIL) 10 mg tablet Take 1 Tablet (10 mg) by mouth daily. 100 Tablet 3 4 Active clopidogreL (PLAVIX) 75 mg Tablet Take 1 Tablet (75 mg) by mouth daily. 90 Tablet 3 4 Active atorvastatin (LIPITOR) 80 mg tablet Take 1 Tablet (80 mg) by mouth daily. 90 Tablet 3 4 Active Active Problems Patient Care Coordination No te Formatting of this note migh t be different from the original. Higinio Silvestre MD--Lead Java J2Ee Developer ([facility] @ ) Problem Noted Date Diagnosed Date Supraventricular tachycardia 03/03/2023 PVC (premature ventricular contraction) 03/03/20 Dyspnea 03/03/2023 Fatigue 03/03/2023 Benign hypertension 12/23/2022 Mixed hyperlipidemia 12/23/2022 Atherosclerosis of [place] co ronary artery of [place] heart without angina pectoris 01/15/2022 Overview (01/15/2022): 1999 2 BMS to RCA, 1 BMS to Cx 12/02/20 [facility] cath- inf hypo, EF 55%. LAD-mild, dRCA 20-30%, CX- 90% at bifurc of large OM (and small LV br beyond)-stented OM and jailed distal Cx/LV br (unable to pass wire) 09/29/21 [place] cath: LM-mild-30%, LAD 50 mid, 50 mid-distal; Cx 30 mid 95 distal after large OM; OM2 stent patent; RCA prox, mid 40, 50%. mid-dist 90, 95%--stented 09/30/21 echo EF 55-60% Encounters Date Type Department Care Team Description 11/28/2024 External Device Data [facility] ABSTRACTION Provider, Abstract 11/21/2024 External Device Data [facility]STRACTION Provider, Abstract 10/24/2024 External Device Data [place]STRA[place] Provider, Abstract 10/11/2024 External Device Data [place]STRA[place] Provider, Abstract 10/05/2024 Telephone [facility] [address] [facility] [place] [address] Polo Kingsley MD Medication Question 09/30/2024 External Device Data [facility] ABSTRACTION Provider, Abstract 09/30/2024 External Device Data [facility] [place]STRACTION Provider, Abstract from Last 3 Months Social History Tobacco Use Types Packs/Day Years Used Date Smoking Tobacco: Former Cigarettes Q uit: 07/26/1984 Smokeless Tobacco: Never Alcohol Use Standard Drinks/Week Comments Never 0 (1 standard drink = 0.6 oz pur e alcohol) Sex and Gender Information Value Date Recorded Sex Assigned at Not on file Legal 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 Gender Identity Not on file Sexual Orientation Not on file Last Filed Vital Signs Vital Sign Reading Time Taken Comments Blood Pressure 140/76 06/28/2024 10:41 AM 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 Pulse 79 06/28/2024 10:41 AM 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 Temperature 37 C (98.6 F) 01/23/2022 6:44 AM CDT Respiratory Rate 16 01/23/2022 12:00 PM CDT Oxygen Saturation 96% 06/28/2024 10:41 AM 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 Inhaled Oxygen Concentration - - Weight 88.5 kg (195 lb) 06/28/2024 10:41 AM 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 Height 177.8 cm (5' 10) 06/28/2024 10:41 AM 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 Body Mass Index 27.98 06/28/2024 10:41 AM 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 Plan of Treatment Upcoming Encounters Date Type Department Care Team (Late st Contact Info) Description 12/27/2024 11:00 AM CDT Office Visit [facility] - [facility] [address] [place] [address] Polo Kingsley MD [address] [facility] [address] [place] [address] Health Maintenance Due Date Last Done Comments PNEUMOCOCCAL VACCINE 50+ YEA RS (1 of 2 - PCV) 1960 RSV VACCINE (60+ or ) (1 - 1-dose 75+ series) 2016 DTAP/TDAP/TD VACCINES (2 - Tdap) 11/27/2023 11/27/19 14 INFLUENZA VACCINE (#1) 2024 05/24/2023, 2020 COVID-19 Vaccine (3 - season) 2024, 08/23/2020 ZOSTER VACCINE Completed 04/22/2020, 05/22/2019 Medical Devices Implanted Type Area Driller Operator Device Identifier Shelf Expiration Date Model / Serial / Lot Stent Synergy Xd [id number] [id number] ut [id number] - [id number] Implanted:Qty : 1 on 01/23/2022 at [facility] Stent N/A: Coronary [employer] 07/10/2023 [id number] / / [id number] Insurance AETNA PPO MCR Advance Directives For more information, please contact: [phone] * Full Code (Latest Code Status on File) Date Activated Date Inactivated Comments 01/23/2022 6:55 AM 01/23/2022 3:23 PM Care Teams Steeplechase Jockey Relationship Specialty Start Date End Date Shania Nelson MD [address] [place] [address] PCP - General Family Practice 09/24/21
--- OUTSIDE RECORDS SUMMARY | 2024-12-25 12:09 | XMS_ITS | Referral Summary ---
Author Organization [facility] [address] Address [address] [place] [address] Care Team Providers Care Telephone Supervisor Name Role Phone Link Hurley MD Primary Care Provider [phone] Encounters Date Type Department Care Team Description 10/11/2024 Orders Only [facility] Cardiology [facility] Medical Office Building [address] [place] [id number] Abner Ramirez MD from Last 3 Months Allergies Active Allergy Reactions Criticality Noted Date Comments Cefuroxime Nausea & Vomiting Low 01/03/2019 Cephalexin Nausea & Vomiting Low Medications montelukast (SINGULAIR) 10 mg tablet take 1 tablet (10MG) by oral route every day in the evening 0 2 Active fluticasone (FLONASE) 50 mcg/actuation nasal spray inhale 1 spray by intranasal route every day in each nostril 0 spray 0 4 Active ipratropium (ATROVENT) 42 mcg (0.06 %) nasal spray Administer 2 sprays into each nostril 2 (two) times a day as needed 8 Active azelastine (ASTELIN) 137 mcg (0.1 %) nasal spray Administer 1 spray into each nostril as needed for rhinitis or allergies 6 9 Active Lacto no.37-B.animali s,longum 142 mg (10 billion cell) capsule Take 1 capsule by mouth every morning Active multivit-min/FA /lycopen/lutein (CENTRUM SILVER MEN ORAL) Take 1 tablet by mouth 2 (two) times a day Active nitroglycerin (NITROSTAT) 0.[address] 1 tablet (0.4 mg total) under the tongue every 5 (five) minutes as needed 1 Active clopidogreL (PLAVIX) 75 mg tablet Take 1 tablet (75 mg total) by mouth daily 90 tablet 3 1 Active dutasteride (AVODART) 0.5 mg capsule Take 1 capsule (0.5 mg total) by mouth nightly 1 Active tamsulosin (FLOMAX) 0.4 mg extended release capsule Take 1 capsule (0.4 mg total) by mouth nightly 1 Active atorvastatin (LIPITOR) 80 mg tablet Take 1 tablet (80 mg total) by mouth nightly Active cholecalciferol (VITAMIN D-3) 2000 unit capsule Take 0.5 capsules (1,000 Units total) by mouth 2 (two) times a day 0 Active famotidine (PEPCID) 20 mg tablet Take 1 tablet (20 mg total) by mouth 2 (two) times a day 3 Active loteprednol (LOTEMAX) 0.5 % drops,gel Administer 1 drop into both eyes nightly 3 Active acetaminophen (TYLENOL) 500 mg tablet Take 2 tablets (1,000 mg total) by mouth every 6 (six) hours as needed for pain Active cyanocobalamin (Vitamin B-12) 1,000 mcg sublingual tablet 1 tablet (1,000 mcg total) 4 Active lisinopriL (PRINIVIL,ZESTR IL) 10 mg tablet Take 1 tablet (10 mg total) by mouth daily 4 Active traMADoL (ULTRAM) 50 mg tablet TAKE 1 TABLET BY MOUTH EVERY 8 HOURS FOR 7 DAYS NEEDED FOR PAIN 4 Active benzonatate (TESSALON) 100 mg capsuleIndicati ons:Cough Take 1 capsule (100 mg total) by mouth 3 (three) times a day as needed for cough 21 capsule 4 Active Active Problems Problem Noted Date Diagnosed Date Abnormal chest CT 03/04/2024 Allergic rhinitis 03/04/2024 Asthma 03/04/2024 [place] hernia 03/04/2024 Bronchiectasis 03/04/2024 CKD (chronic kidney disease), stage III 03/04/20 24 Cough 03/04/2024 Groin pain 03/04/2024 Hepatic cyst 03/04/2024 Macrocytosis 03/04/2024 Osteoarthritis of right hip 03/04/2024 Prediabetes 03/04/2024 Presence of stent in coronary artery 03/04/2024 Recurrent otitis externa 03/04/2024 Renal cyst 03/04/2024 Subclinical hyperthyroidism 03/04/2024 Vitamin D deficiency 03/04/2024 Disorder of carotid artery 03/04/2024 Dyslipidemia 03/04/2024 Dizziness 08/08/2023 Pacemaker 07/15/2023 Assessment & Plan (06/29/2024 11:27 AM STRADDLE TRUCK DRIVER): -Dual chamber pacemaker is functioning appropriately as programmed -Lead impedances, sensing, and thresholds are stable -No programming changes -Continue remote monitoring quarterly -Follow up in 1 year for device check Assessment & Plan (07/15/2023 2:29 PM STRADDLE TRUCK DRIVER): Dual chamber pacemaker is functioning appropriately as programmed Lead impedances, sensing, and thresholds are stable PMT noted - device reprogrammed to extend PVARP No SVT/AF. We discussed starting metoprolol in the future if he has atrial arrhythmias Continue remote monitoring quarterly Follow up in 1 year for device check BPH (benign prostatic hyperplasia) 05/24/2023 Assessment & Plan (05/25/2023 11:40 AM CDT): -cont flomax, finasteride. ALICIA (obstructive sleep apnea) 05/24/2023 Assessment & Plan (05/25/2023 11:41 AM CDT): -cont home CPAP nightly. GERD (gastroesophageal reflux disease) Assessment & Plan (05/25/2023 11:40 AM CDT): -cont home pepcid. Sinus node dysfunction 05/03/2023 Assessment & Plan (06/29/2024 12:01 PM STRADDLE TRUCK DRIVER): -Symptomatic sinus node dysfunction s/p dual chamber pacemaker 05/24/2023 -Appropriate device function, atrial paced 61%. Assessment & Plan (07/15/2023 2:30 PM STRADDLE TRUCK DRIVER): Symptomatic sinus node dysfunction s/p dual chamber pacemaker 05/24/2023 Appropriate device function, atrial paced 66%. Encouraged him to resume regular exercise, suspect component of fatigue may be due to deconditioning Assessment & Plan (05/25/2023 11:41 AM CDT): Underwent successful PPM 05/24. -bedrest overnight. -tele monitoring. -s/p IV vanc. -CXR & device interrogation in AM, pending EP approval for discharge. Symptomatic bradycardia 04/22/2023 Assessment & Plan (04/23/2023 1:21 PM CDT): Mr. Bernal has ongoing fatigue, bradycardia and baseline HR 40-50s. He also has SVT and palpitations. We have been unable to initiate AV cody agents due to his baseline bradycardia We discussed dual chamber pacemaker implant for symptomatic bradycardia and to facilitate treatment of SVT Risks and benefits of the procedure were reviewed with Mr. 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 We discussed starting BB/CCB if he becomes more symptomatic. Given his ongoing fatigue, will defer adding BB at this time Assessment & Plan (04/23/2023 1:22 PM CDT): Short episodes of SVT noted on outside Holter, symptomatic with palpitations Assessment & Plan (03/25/2023 12:21 PM CDT): SVT s/p ablation of AVNRT in 2020 Limited SVT on recent Holter, avoiding AV cody agents due to resting bradycardia Discussed option of AAD in the future if he has symptomatic SVT recurrence Assessment & Plan (12/16/2022 9:52 AM CDT): SVT s/p ablation of AVNRT in 2020 No recurrent palpitations Palpitations 05/15/2021 Exertional dyspnea 01/03/2019 Assessment & Plan (03/25/2023 12:22 PM CDT): Agree with Dr Kingsley's recommendations for stress MPI to assess for ischemia as well as chronotropic competence and TTE We discussed the role of dual chamber pacemaker for treating symptomatic bradycardia, chronotropic incompetence and to allow for use of AV cody blocking agents to treat SVT Further recommendations pending results of cardiac testing CAD (coronary artery disease) 01/20/2017 Assessment & Plan (05/25/2023 11:40 AM CDT): Hx CAD s/p stent. -cont ASA, plavix, statin. Assessment & Plan (04/23/2023 1:23 PM CDT): Recent stress MPI negative for ischemia - 04/12/2023 Normal LVEF per TTE - 04/12/2023 Assessment & Plan (12/16/2022 12:30 PM CDT): CAD with history of multiple stents, most recently reported chest pain and fatigue and underwent PCI with stent to the mid LAD in [place], [place] Fatigue and chest pain have resolved post stent Bradycardia longstanding. Chronic LBBB. If symptoms return, may consider evaluation for chronotropic incompetence, but at this time he reports appropriate HR elevation with activity and no symptoms of near syncope or syncope S/P coronary artery stent placement 01/20/2017 High cholesterol 04/15/2012 History of AR (myocardial infarction) 04/15/2012 Sinusitis, chronic 04/15/2012 Immunizations Immunization Administration Dates Next Due Influenza, Quadrivalent, Hig h Dose, Preservative Free, Intrr 05/24/2023 Social History Tobacco Use Types Packs/Day Years Used Date Smoking Tobacco: Former Cigarettes 1 10 0 07/26/1961 - 07/26/1971 Smokeless Tobacco: Never Tobacco Cessation:Counseling Given: Not Answered Alcohol Use Standard Drinks/Week Comments Yes 0 (1 standard drink = 0.6 oz pur e alcohol) AUDIT-C Answer Date Recorded Q1: How often do you have a drink containing alc ohol? Never 05/24/2023 Average Number of Drinks Not on file 023 Q3: How often do you have si x or more drinks on one occasion? Never 05/24/2023 Personal Safety Answer Date Recorded Have you ever been in or are you currently in a harmful physical or emotional relationship or is someone making you feel afraid or unsafe? Denies 05/24/2023 Sex and Gender Information Value Date Recorded Sex Assigned at Not on file Legal Sex Male 2:15 PM STRADDLE TRUCK DRIVER Gender Identity Male 07/09/2021 2:55 PM STRADDLE TRUCK DRIVER Sexual Orientation Straight 07/09/2021 2: 55 PM STRADDLE TRUCK DRIVER Last Filed Vital Signs Vital Sign Reading Time Taken Comments Blood Pressure 138/72 07/22/2024 3:42 PM STRADDLE TRUCK DRIVER Pulse 59 07/22/2024 3:42 PM STRADDLE TRUCK DRIVER Temperature 37.2 C (98.9 F) 07/22/2024 3:42 PM STRADDLE TRUCK DRIVER Respiratory Rate 20 07/22/2024 3:42 PM STRADDLE TRUCK DRIVER Oxygen Saturation 96% 07/22/2024 3:42 PM STRADDLE TRUCK DRIVER Inhaled Oxygen Concentration - - Weight 89.8 kg (198 lb) 07/22/2024 3:42 PM STRADDLE TRUCK DRIVER Height 175.3 cm (5' 9) 06/29/2024 11:18 AM STRADDLE TRUCK DRIVER Body Mass Index 29.24 06/29/2024 11:18 AM STRADDLE TRUCK DRIVER Plan of Treatment Not on file Medical Devices Implanted Type Area Refrigerator Tester Device Identifier Shelf Expiration Date Model / Serial / Lot [employer] [id number] System 6-12fr Mvp Venous Closure Vascade - [id number] Implanted:Qty : 1 on 07/02/2021 by Abner Ramirez MD at [facility] Collagen [employer] 03/12/2023 [id number]- [id number] / / [id number] 30C [employer] [id number] System 6-12fr Mvp Venous Closure Vascade - [id number] Implanted:Qty : 1 on 07/02/2021 by Abner Ramirez MD at [facility] Collagen [employer] 03/12/2023 800-612C- [id number] / / [id number] 30C [employer] [id number] Device Closure Vascade Od5 Fr Femoral Artery - [id number] Implanted:Qty : 1 on 07/02/2021 by Abner Ramirez MD at [facility] Collagen [employer] 04/14/2023 [id number] -[id number] / / [id number] [employer] [id number] Device Closure Vascade Od5 Fr Femoral Artery - [id number] Implanted:Qty : 1 on 07/02/2021 by Abner Ramirez MD at [facility] Coll[employer] 04/14/2023 [id number] -[id number] / / [id number] [employer] Tendril Sts 6fr 58cm Is-1 Connector Active Fixation Bipolar Soft 8tc/58 - [id number] - [id number] Implanted:Qty : 1 on 05/24/2023 by Abner Raimrez MD at [facility] Lead Right: Ventricle [employer] 04/24/2026 2088TC/58 / [id number] / [id number] [employer] Tendril Sts 6fr 52cm Is-1 Connector Active Fixation Bipolar Soft 2088tc/52 - [id number] - [id number] Implanted:Qty : 1 on 05/24/2023 by Abner Ramirez MD at [facility] Lead N/A: Atria [employer] 03/25/20268TC/52 / [id number] / [id number] [employer] Assurity Mri [id number] Chamber Is-1 Connector Thk6mm Pacemaker Xb2000 - [id number] - [id number] Implanted:Qty : 1 on 05/24/2023 by Abner Ramirez MD at [facility] Pacemaker Left: Chest Wall [employer] 09/22/2024 [id number] / [id number] / [id number] [id number] Multi Link- 0 Implanted: (Quantity not on file) N/A: Heart Acs Multi Link- 0 Implanted: (Quantity not on file) N/A: Heart Acs Multi Link- 0 Implanted: (Quantity not on file) N/A: Heart Acs Multi Link- 1 Implanted:04/2021 (Quantity not on file) N/A: Heart Procedures Procedure Name Priority Date/Time Associated Diagnosis Comments DEVICE CHECK - REMOTE Routine 10/11/2024 5:[address] ABDOMEN W CONTRAST Schedule Routine, Read Routine (OP Routine) 07/31/2021 from Last 3 Months or Most Recently Relevant to Health Maintenance Results * DEVICE CHECK - REMOTE (10/11/2024 5:32 AM CDT) Anatomical Region Laterality Modality Other 10/11/2024 5:32 AM CDT Narrative 10/20/2024 4:39 PM CDT Interpretation Summary: Battery and Leads (BL) Normal parameters noted on battery and lead(s) --- 9.8 years remaining (this is an estimate based on prior usage) Presenting Rhythm (AR) Atrial Pacing-Ventricular Sensing (AP-VS) --- rate 60's Atrial Sensing-Ventricular Sensing (-VS) Arrhythmic events (AE) Atrial High-Rate Episode(s) identified --- One non-sustained AT episode Nonsustained SVT event(s) identified --- Two NS-SVT episodes. Fastest: 196. Longest: 5 seconds Transmission Information (TI) Device Summary Report Procedure Note Abner Ramirez MD - 10/20/2024 Interpretation Summary: Battery and Leads (BL) Normal parameters noted on battery and lead(s) --- 9.8 years remaining(this is an estimate based on prior usage) Presenting Rhythm (AR) Atrial Pacing-Ventricular Sensing (AP-VS) --- rate 60's Atrial Sensing-Ventricular Sensing (-VS) Arrhythmic events (AE) Atrial High-Rate Episode(s) identified --- One non-sustained AT episode Nonsustained SVT event(s) identified --- Two NS-SVT episodes. Fastest:196. Longest: 5 seconds Transmission Information (TI) Device Summary Report Abner Ramirez MD [facility] PRO CEDURES Final Result * CT Abdomen W Contrast (07/31/2021) Anatomical Region Laterality Modality Body N/A Computed Tomogra phy Historical Provider IMG CT PROCEDURES Final R esult from Last 3 Months or Most Recently Relevant to Health Maintenance Insurance AETNA MEDICARE AET MEDICARE T MEDICARE Advance Directives For more information, please contact: [phone] * Full Code (Latest Code Status on File) Date Activated Date Inactivated Comments 05/24/2023 5:25 PM 05/25/2023 5:37 PM Care Teams Telephone Supervisor Relationship Specialty Start Date End Date Link Hurley MD [address] [place] [address] [place] [address] PCP - General Internal Medicine 03/10/23
--- OUTSIDE RECORDS SUMMARY | 2024-12-25 12:09 | XMS_ITS | Clinical Summary ---
Author Organization [facility] [address] Address [address] [place] [address] Care Team Providers Care Cash Processing Specialist Name Role Phone Link Hurley MD Primary Care Provider [phone] Allergies Active Allergy Reactions Criticality Noted Date [...] 07/15/2023 Assessment & Plan (06/29/2024 11:27 AM UNDERTAKER ASSISTANT): -Dual chamber pacemaker is functioning appropriately as programmed -Lead impedances, sensing, and thresholds are stable -No programming changes -Continue remote monitoring quarterly -Follow up in 1 year for device check Assessment & Plan (07/15/2023 2:29 PM UNDERTAKER ASSISTANT): Dual chamber pacemaker is functioning appropriately as [...] 05/03/2023 Assessment & Plan (06/29/2024 12:01 PM UNDERTAKER ASSISTANT): -Symptomatic sinus node dysfunction s/p dual chamber pacemaker 05/24/2023 -Appropriate device function, atrial paced 61%. Assessment & Plan (07/15/2023 2:30 PM UNDERTAKER ASSISTANT): Symptomatic sinus node dysfunction s/p dual chamber [...] 05/15/2021 Assessment & Plan (06/29/2024 12:02 PM UNDERTAKER ASSISTANT): -AVNRT s/p successful ablation in 2020, Dr Ramirez -Short runs of SVT [...] with stent to the mid LAD in [place], [place] Fatigue and chest pain have resolved post stent Bradycardia longstanding. Chronic LBBB. If symptoms return, may consider evaluation for chronotropic incompetence, but at this time he reports appropriate HR elevation with activity and no symptoms of near syncope or syncope S/P coronary artery stent placement 01/20/2017 High cholesterol 04/15/2012 History of AR (myocardial infarction) 04/15/2012 Sinusitis, chronic 04/15/2012 Encounters Date Type Department Care Team Description 10/11/2024 Orders Only [facility] Cardiology [address] [place] [address] Abner Ramirez MD from Last 3 Months Immunizations Immunization Administration Dates Next Due Influenza, Quadrivalent, Hig h Dose, Preservative Free, Intrr 05/24/2023 Surgical History Surgery Date Site/Laterality Comments HERNIA REPAIR 07/26/1990 - 07/25/1991 Hernia repair SINUS SURGERY 07/26/1994 - 07/25/1995 Sinus Surgery TONSILLECTOMY Tonsillectomy CORONARY STENT PLACEMENT 01/24/2000 - 02/23/2000 3.5 x 20 and 3.5 x 8 mm bare metal stent to the RCA ANGIOPLASTY 01/24/2000 - 02/23/2000 CORONARY ANGIOPLASTY WITH STENT PLACEMENT 12/02/2020 CATARACT EXTRACTION Bilateral ABLATION 07/02/2021 SVT ABLATION CARDIAC STENT PLACEMENT 11/26/2022 MID LAD Medical History Medical History Date Comments Pneumonia Pneumonia Hypertension Hypertension GERD (gastroesophageal reflux disease) NA Sleep apnea LBBB (left bundle branch block) Cataract Heart disease Family History Medical History Relation Name Comments Heart disease Brother Jasen Other Father Leukemia, AML; Cause of : Leukemia, AML Hearing loss Mother Pearbrendan Hypertension Mother Chris Other Mother Chris Valve Replaceme nt; Cause of : Valve Replacement Valvular heart disease Mother Pearbrendan Heart disease Sister Magdalena Anesthesia problems Neg Hx Relation Name Status Comments Brother Max Father (Age 84) Mother Chris (Age 90) Sister Magdalena Social History Tobacco Use Types Packs/Day Years [...] on file Legal Sex Male 2:15 PM UNDERTAKER ASSISTANT Gender Identity Male 07/09/2021 2:55 PM UNDERTAKER ASSISTANT Sexual Orientation Straight 07/09/2021 2: 55 PM UNDERTAKER ASSISTANT Obstetrics History Last Filed Vital Signs Vital Sign Reading Time Taken Comments Blood Pressure 138/72 07/22/2024 3:42 PM UNDERTAKER ASSISTANT Pulse 59 07/22/2024 3:42 PM UNDERTAKER ASSISTANT Temperature 37.2 C (98.9 F) 07/22/2024 3:42 PM UNDERTAKER ASSISTANT Respiratory Rate 20 07/22/2024 3:42 PM UNDERTAKER ASSISTANT Oxygen Saturation 96% 07/22/2024 3:42 PM UNDERTAKER ASSISTANT Inhaled Oxygen Concentration - - Weight 89.8 kg (198 lb) 07/22/2024 3:42 PM UNDERTAKER ASSISTANT Height 175.3 cm (5' 9) 06/29/2024 11:18 AM UNDERTAKER ASSISTANT Body Mass Index 29.24 06/29/2024 11:18 AM UNDERTAKER ASSISTANT Plan of Treatment Health Maintenance Due Date Last Done Comments Depression Screening 1940 Hepatitis B Screening 10[birth year]10/1958 Well Visit 65+ 2006 Covid-19 Vaccine ( - 2023-2 5 season) 2024 09/18/2020, 08/23/2020 Fall Risk Assessment 05/25/2024 05/25/2023 Influenza Vaccine (Season Ended) 2025 05/24/2023, 04/25/2022, 06/12/2021, Additional history exists DTaP/Tdap/Td Vaccine (4 - Td or Tdap) 01/23/2029 01/23/2019, 11/26/2013, 11/26/2013 Pneumococcal vaccine 65+ Completed 05/22/2019, 06/26 Zoster Vaccine Completed 04/22/2020, 05/22/2019 Abdominal Aortic Aneurysm (A AA) Screen Completed 07/31/2021 Medical Devices Implanted Type Area Keymodule Assembly Supervisor Device Identifier Shelf Expiration Date Model / Serial / Lot [employer] [id number] System 6-12fr Mvp Venous Closure Vascade - [id number] Implanted:Qty : 1 on 07/02/2021 by Abner Ramirez MD at [facility] [employer] 03/12/2023 [id number]- [id number] / / [id number] 30C [employer] [id number] System 6-12fr Mvp Venous Closure Vascade - [id number] Implanted:Qty : 1 on 07/02/2021 by Abner Ramirez MD at [facility] [employer] 03/12/2023 [id number]- [id number] / / [id number] 30C [employer] [id number] Device Closure Vascade Od5 Fr Femoral Artery - [id number] Implanted:Qty : 1 on 07/02/2021 by Abner Ramirez MD at [facility] [employer] 04/14/2023 [id number] -[id number] / / [id number] [employer] [id number] Device Closure Vascade Od5 Fr Femoral Artery - [id number] Implanted:Qty : 1 on 07/02/2021 by Abner Ramirez MD at [facility] [employer] 04/14/2023 [id number] -[id number] / / [id number] [employer] Tendril Sts 6fr 58cm Is-1 Connector Active Fixation Bipolar Soft 2087tc/58 - [id number] - [id number] Implanted:Qty : 1 on 05/24/2023 by Abner Ramirez MD at [facility] Lead Right: Ventricle [employer] 04/24/2026 2088TC/58 / [id number] / [id number] [employer] Tendril Sts 6fr 52cm Is-1 Connector Active Fixation Bipolar Soft 8tc/52 - [id number] - [id number] Implanted:Qty : 1 on 05/24/2023 by Abner Ramirez MD at [facility] Lead N/A: Atria [employer] 03/25/2026 2088TC/52 / [id number] / [id number] [employer] Assurity Mri [id number] 2 Chamber Is-1 Connector Thk6mm Pacemaker [id number] - [id number] - [id number] Implanted:Qty : 1 on 05/24/2023 by Abner Ramirez MD at [facility] Pacemaker Left: Chest Wall [employer] 09/22/2024 [id number] / [id number] / [id number] Multi Link- 0 Implanted: (Quantity not [...] estimate based on prior usage) Presenting Rhythm (MO) Atrial Pacing-Ventricular Sensing (AP-VS) --- rate 60's [...] estimate based on prior usage) Presenting Rhythm (MO) Atrial Pacing-Ventricular Sensing (AP-VS) --- rate 60's [...] Most Recently Relevant to Health Maintenance Insurance [facility] MEDICARE T MEDICARE [facility] MEDICARE Advance Directives For more information, please contact: [phone] * Full Code (Latest Code Status on File) Date Activated Date Inactivated Comments 05/24/2023 5:25 PM 05/25/2023 5:37 PM Care Teams Cash Processing Specialist Relationship Specialty Start Date End Date Link Hurley MD [address] [place] [address] [place] [address] PCP - General Internal Medicine 03/10/23
--- OUTSIDE RECORDS SUMMARY | 2024-12-25 12:09 | XMS_ITS | Encounter Summary ---
Author Organization [facility] Address [address] [place] [address] Phone Care Team Providers Care Aluminum Shingle Roofer Name Role Phone Shania Nelson MD Primary Care Provider Link Hurley MD Primary Care Provider [phone] Encounter Details Date Type Department Care Team (Latest Contact Info) Description 04/15/2021 Orders Only [facility] Scanning, Provider Social History Tobacco Use Types Packs/Day Years Used Date Smoking Tobacco: Former Smokeless Tobacco: Never Alcohol Use Standard Drinks/Week Comments Yes 0 (1 standard drink = 0.6 oz pur e alcohol) Sex and Gender Information Value Date Recorded Sex Assigned at Not on file Legal Sex Male 2:15 PM MANAGER TECHNICAL SALES Gender Identity Male 07/09/2021 2:55 PM MANAGER TECHNICAL SALES Sexual Orientation Straight 07/09/2021 2: 55 PM MANAGER TECHNICAL SALES documented as of this encounter Plan of Treatment Not on file documented as of this encounter Procedures Procedure Name Priority Date/Time Associated Diagnosis Comments CARDIOLOGY DOCUMENT SCAN 04/15/2021 documented in this encounter Results * SCAN - CARDIOLOGY (04/15/2021) Anatomical Region Laterality Modality Other us Provider Scanning CV CARDIAC SERVICES PROCEDURES Final Result documented in this encounter Visit Diagnoses Not on filedocumented in this encounter Additional Health Concerns Infection Onset Date Last Indicated Resolved Time COVID: Suspected 07/22/2024 07/22/2024 07/22/2024 3:50 PM MANAGER TECHNICAL SALES COVID19 07/22/2024 07/22/2024 08/01/2024 3:05 AM MANAGER TECHNICAL SALES documented as of this encounter Care Teams Aluminum Shingle Roofer Relationship Specialty Start Date End Date Shania Nelson MD PCP - General Family Practice 12/28/17 03/09/23 Link Hurley MD [address] [place] [address] DR [address] [place] [address] PCP - General Internal Medicine 03/10/23 documented as of this encounter
--- OUTSIDE RECORDS SUMMARY | 2024-12-25 12:09 | XMS_ITS | Encounter Summary ---
Author Organization [facility] Health Address [address] [place] [address] Care Team Providers Care Application Systems Engineer Name Role Phone Arthur Sumner MD Primary Care Provider [phone] Johnie Aaron MD Unavailable [phone] Encounter Details Date Type Department Care Team (Late st Contact Info) Description 03/04/2022 Lab Requisition [facility] Care DermPath Lab [address] [facility], [facility] [address] Jairo Jauregui MD [address] [place] [address] Social History Tobacco Use Types Packs/Day Years Used Date Smoking Tobacco: Former Smokeless Tobacco: Never Alcohol Use Standard Drinks/Week Comments Yes 0 (1 standard drink = 0.6 oz pur e alcohol) Occasionally Sex and Gender Information Value Date Recorded Sex Assigned at Not on file Legal Sex Male 6:21 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 Gender Identity Not on file Sexual Orientation Not on file Occupation Industry Job Start Date Job End Date retired Not on file Not on file Not on file documented as of this encounter Plan of Treatment Not on file documented as of this encounter Procedures Procedure Name Priority Date/Time Associated Diagnosis Comments DERMATOPATHOLOGY Routine 03/03/2022 3:33 AM CDT documented in this encounter Results * DERMATOPATHOLOGY (03/03/2022 3:33 AM CDT) Case Report Dermatopathology Report Case: [id number] Authorizing Provider: Jairo Jauregui MD Collected: 03/03/2022 03:33 AM Ordering Location: [facility] DermPath Lab Received: 03/04/2022 11:11 AM Pathologist: Emily Head MD Specimen: Skin, left anti helix 2 3:55 PM CDT DERMATOPATHOLOGY LABORATORY Final Diagnosis Specimen A. 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 The specimen consists of a shave biopsy measuring [id number]. Jar 0. 2 3:55 PM CDT DERMATOPATHOLOGY LABORATORY Microscopic Description Specimen A. SKIN, left anti helix: The epidermis shows parakeratosis, full thickness disorderly maturation of keratinocytes, mitoses at different levels, and dyskeratotic cells. 2 3:55 PM CDT DERMATOPATHOLOGY LABORATORY Disclaimer An external and internal positive and negative controls are appropriate for the histochemical, immunohistochemical and immunofluorescence stain(s) in this case (if any), except where stated explicitly. The performance characteristics of the stain(s) cited in this report were developed and its performance characteristic determined by the Dermatopathology Laboratory at [facility], directed by Dr. Xiomara Laughlin. These tests need not be, and therefore are not, approved by the [place] Food and Drug Administration. The tests are used for clinical purposes. Billing Codes Specimen Charges Stain Charges 16282 1 2 3:55 PM CDT DERMATOPATHOLOGY LABORATORY Embedded Images 2 3:55 PM CDT DERMATOPATHOLOGY LABORATORY Pathology/Cytolo gy TISSUE SPECIMEN FROM SKIN / Unknown 03/03/2022 3:33 AM CDT 03/04/2022 11:11 AM CDT Jairo Jauregui MD LAB - PATHOLOGY/CYTOLOGY ORD ERABLES Final Result DERMATOPATHOLOGY LABORATORY [facility] - Department of Dermatology [facility] Medicine [address] [place] [address], [address] [phone] documented in this encounter Visit Diagnoses Not on filedocumented in this encounter Care Teams Application Systems Engineer Relationship Specialty Start Date End Date Arthur Sumner MD [address] [place] [phone] PCP - General Family Medicine 02/26/12 Johnie Aaron MD [address] [place] [phone] Otolaryngology 04/15/12 documented as of this encounter
--- OUTSIDE RECORDS SUMMARY | 2024-12-25 12:09 | XMS_ITS | Clinical Summary ---
Author Organization [facility] Address [address] [facility] [place] [address] Care Team Providers Care Brass And Wind Instrument Repairer Name Role Phone Arthur Sumner MD Primary Care Provider [phone] Johnie Aaron MD Unavailable [phone] Source Comments [facility],non-[facility] Affiliates and Associated Physician Practices is amultiple site organization consisting of ambulatory clinics and hospital sitesin [place], [place], [place] and [place]. This disclosure is being madepursuant to the Care Everywhere program and may not contain all information available regarding this patient. Last updated 18.[facility] Allergies No known active allergies Medications * Be aware that medications may not be up to date on this document. Alwaysverify current medications with the patient. metoprolol succinate XL 24hr (TOPROL XL) 50 MG tablet 25 mg once daily. Active pitavastatin (LIVALO) 1 MG tablet once daily. Active aspirin 81 MG tablet once daily. Active Fexofenadine-Pse udoephedrine (MALA-D 24 HOUR) 180-240 MG TB24 once daily. Active montelukast (SINGULAIR) 10 MG tablet once daily. Active famotidine (PEPCID) 40 MG tablet once daily. Active triamcinolone (NASACORT AQ) 55 MCG/ACT nasal inhaler as directed. Active TRAMADOL HCL PO as needed. Act wilfredo omeprazole (PRILOSEC) 40 MG capsule Take 1 Cap by mouth daily before breakfast. 90 Cap 2 05/24/2012 Active Active Problems Problem Noted Date Diagnosed Date Sinusitis, chronic 04/15/2012 High cholesterol 04/15/2012 History of GA (myocardial infarction) 04/15/2012 Family History Relation Name Status Comments Brother Alive x1 esophagus martinez rgery Child Alive x3 healthy Father (Age 84) Leukemia Mother (Age 90) Complicati ons from an aortic valve replacement Sister Alive x2 Sinus proble ms x1 Social History Tobacco Use Types Packs/Day Years Used Date Smoking Tobacco: Former Smokeless Tobacco: Never Alcohol Use Standard Drinks/Week Comments Yes 0 (1 standard drink = 0.6 oz pur e alcohol) Occasionally Sex and Gender Information Value Date Recorded Sex Assigned at Not on file 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 Gender Identity Not on file Sexual Orientation Not on file Occupation Industry Job Start Date Job End Date retired Not on file Not on file Not on file Last Filed Vital Signs Vital Sign Reading Time Taken Comments Blood Pressure 153/93 04/15/2012 11:35 AM CDT Pulse 59 04/15/2012 11:35 AM CDT Temperature - - Respiratory Rate - - Oxygen Saturation - - Inhaled Oxygen Concentration - - Weight 88.5 kg (195 lb) 04/15/2012 11:35 AM CDT Height 177.8 cm (5' 10) 04/15/2012 11:35 AM CDT Body Mass Index 27.98 04/15/2012 11:35 AM CDT Plan of Treatment Health Maintenance Due Date Last Done Comments DTAP/TDAP/TD VACCINES (1 - Tdap) 1960 PNEUMOCOCCAL VACCINE 50+ (1 of 1 - PCV) 10/10/1991 ZOSTER VACCINE (1 of 2) 10/10/1991 Respiratory Syncytial Virus (RSV) Vaccine Pt: or over 60 yrs (1 - 1-dose 75+ series) 2016 COVID-19 VACCINE ( - 2023-2 5 season) 2024 DEPRESSION SCREENING 07/26/2024 MEDICARE AWV CALENDAR YEAR 2024 INFLUENZA VACCINE (Season Ended) 2025 HEPATITIS B VACCINE Aged Out No longe r eligible based on patient's age to complete this topic HIB VACCINE Aged Out No longer eligi ble based on patient's age to complete this topic HPV VACCINE Aged Out No longer eligi ble based on patient's age to complete this topic MENINGOCOCCAL (Group B) VACC INE SHARED DECISION-MAKING Aged Out No longer eligibl e based on patient's age to complete this topic MENINGOCOCCAL GROUPS A/C/Y/W VACCINE Aged Out No longer eligible b ased on patient's age to complete this topic Insurance [facility] MANAGED MEDICARE ADV [facility] MANAGED MEDICARE ADV Care Teams Brass And Wind Instrument Repairer Relationship Specialty Start Date End Date Arthur Sumner MD [address] [place] [address] PCP - General Family Medicine 02/26/12 Johnie Aaron MD [address] [place] [address] Otolaryngology 04/15/12
== END 2024-12-25 11:54 | disposition home or self-care (01) ==
PROVIDERS: Visit Provider Nurse Practitioner Family
DX: R06.09 Other forms of dyspnea (principal)
CPT/HCPCS: 71046

== ENCOUNTER 2025-01-10 13:42 | Outpatient (CLI) | payer MEDICARE, SELFPAY ==
--- OUTSIDE RECORDS SUMMARY | 2025-01-10 15:23 | XMS_ITS | Encounter Summary ---
Author Organization [facility] Health Address [address] [facility] [place] [address] Care Team Providers Care Office Specialist Name Role Phone Arthur Sumner MD Primary Care Provider [phone] Johnie Aaron MD Unavailable [phone] Encounter Details Date Type Department Care Team (Late st Contact Info) Description 03/04/2022 Lab Requisition [facility] Care DermPath Lab [address] [facility], [facility] [place] [address] Jairo Jauregui MD [address] [place] [address] Social History Tobacco Use Types Packs/Day Years Used Date Smoking Tobacco: Former Smokeless Tobacco: Never Alcohol Use Standard Drinks/Week Comments Yes 0 (1 standard drink = 0.6 oz pur e alcohol) Occasionally Sex and Gender Information Value Date Recorded Sex Assigned at Not on file Legal Sex Male 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 Jar 0. 2 3:55 PM CDT DERMATOPATHOLOGY [...] characteristic determined by the Dermatopathology Laboratory at [facility], directed by Dr. Xiomara Laughlin. These tests need not be, and therefore are not, approved by the [place] Food and Drug Administration. The tests are used for clinical purposes. Billing Codes Specimen Charges Stain Charges 77005 1 2 3:55 PM CDT DERMATOPATHOLOGY LABORATORY Embedded Images 2 3:55 PM CDT DERMATOPATHOLOGY LABORATORY Pathology/Cytolo gy TISSUE SPECIMEN FROM SKIN / Unknown 03/03/2022 3:33 AM CDT 03/04/2022 11:11 AM CDT Jairo Jauregui MD LAB - PATHOLOGY/CYTOLOGY ORD ERABLES Final Result DERMATOPATHOLOGY LABORATORY [facility] - Department of Dermatology [facility] Medicine [address] [place] [address], [address] [phone] documented in this encounter Visit Diagnoses Not on filedocumented in this encounter Care Teams Office Specialist Relationship Specialty Start Date End Date Arthur Sumner MD [address] [place] [phone] PCP - General Family Medicine 02/26/12 Johnie Aaron MD [address] [place] [phone] Otolaryngology 04/15/12 documented as of this encounter
--- OUTSIDE RECORDS SUMMARY | 2025-01-10 15:23 | XMS_ITS | Referral Summary ---
Author Organization [facility] [address] Address [address] [place] [address] Care Team Providers Care Labor Contract Analyst Name Role Phone Link Hurley MD Primary Care Provider [phone]- [phone] Encounters Date Type Department Care Team Description 10/11/2024 Orders Only [facility] Cardiology [facility] Medical Office Building [address] [place] [id number] Abner Ramirez MD from Last 3 Months [...] 07/15/2023 Assessment & Plan (06/29/2024 11:27 AM SCHOOL SOCIAL WORKER): -Dual chamber pacemaker is functioning appropriately as programmed -Lead impedances, sensing, and thresholds are stable -No programming changes -Continue remote monitoring quarterly -Follow up in 1 year for device check Assessment & Plan (07/15/2023 2:29 PM SCHOOL SOCIAL WORKER): Dual chamber pacemaker is functioning appropriately as [...] 05/03/2023 Assessment & Plan (06/29/2024 12:01 PM SCHOOL SOCIAL WORKER): -Symptomatic sinus node dysfunction s/p dual chamber pacemaker 05/24/2023 -Appropriate device function, atrial paced 61%. 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 Chronic LBBB. If symptoms return, may consider evaluation for chronotropic incompetence, but at this time he reports appropriate HR elevation with activity and no symptoms of near syncope or syncope S/P coronary artery stent placement 01/20/2017 High cholesterol 04/15/2012 History of [place] (myocardial infarction) 04/15/2012 Sinusitis, chronic 04/15/2012 Immunizations [...] on file Legal Sex Male 2:15 PM SCHOOL SOCIAL WORKER Gender Identity Male 07/09/2021 2:55 PM SCHOOL SOCIAL WORKER Sexual Orientation Straight 07/09/2021 2: 55 PM SCHOOL SOCIAL WORKER Last Filed Vital Signs Vital Sign Reading Time Taken Comments Blood Pressure 138/72 07/22/2024 3:42 PM SCHOOL SOCIAL WORKER Pulse 59 07/22/2024 3:42 PM SCHOOL SOCIAL WORKER Temperature 37.2 C (98.9 F) 07/22/2024 3:42 PM SCHOOL SOCIAL WORKER Respiratory Rate 20 07/22/2024 3:42 PM SCHOOL SOCIAL WORKER Oxygen Saturation 96% 07/22/2024 3:42 PM SCHOOL SOCIAL WORKER Inhaled Oxygen Concentration - - Weight 89.8 kg (198 lb) 07/22/2024 3:42 PM SCHOOL SOCIAL WORKER Height 175.3 cm (5' 9) 06/29/2024 11:18 AM SCHOOL SOCIAL WORKER Body Mass Index 29.24 06/29/2024 11:18 AM SCHOOL SOCIAL WORKER Plan of Treatment Not on file Medical Devices Implanted Type Area Manager Php Device Identifier Shelf Expiration Date Model / Serial / Lot [employer] [id number] System 6-12fr Mvp Venous Closure Vascade - [id number] Implanted:Qty : 1 on 07/02/2021 by Abner Ramirez MD at [facility] [employer] 03/12/2023 800-612C- 10U / / [id number] 30C [employer] [id number] System 6-12fr Mvp Venous Closure Vascade - [id number] Implanted:Qty : 1 on 07/02/2021 by Abner Ramirez MD at [facility] [employer] 03/12/2023 800-612C- 10U / / [id number] 30C [employer] [id number] Device Closure Vascade Od5 Fr Femoral Artery - [id number] Implanted:Qty : 1 on 07/02/2021 by Abner Ramirez MD at [facility] Coll[employer] 04/14/2023 700-500DX -05U / / [id number] [employer] [id number] Device Closure Vascade Od5 Fr Femoral Artery - [id number] Implanted:Qty : 1 on 07/02/2021 by Abner Ramirez MD at [facility] [employer] 04/14/2023 700-500DX -05U / / [id number] [employer] Tendril Sts 6fr 58cm Is-1 Connector Active Fixation Bipolar Soft 8tc/58 - [id number] - [id number] Implanted:Qty : 1 on 05/24/2023 by Abner Ramirez MD at [facility] Lead Right: Ventricle [employer] 04/24/2026 2088TC/58 / [id number] / [id number] [employer] Tendril Sts 6fr 52cm Is-1 Connector Active Fixation Bipolar Soft 2088tc/52 - [id number] - [id number] Implanted:Qty : 1 on 05/24/2023 by Abner Ramirez MD at [facility] Lead N/A: Atria [employer] 03/25/20268TC/52 / [id number] / [id number] [employer] Assurity Mri 25f68qm 2 Chamber Is-1 Connector Thk6mm Pacemaker [id number] - [id number] - [id number] Implanted:Qty : 1 on 05/24/2023 by Abner Ramirez MD at [facility] Pacemaker Left: Chest Wall [employer] 09/22/2024 [id number] / [id number] / [id number] Multi Link- 0 Implanted: (Quantity not [...] estimate based on prior usage) Presenting Rhythm (TX) Atrial Pacing-Ventricular Sensing (AP-VS) --- rate 60's [...] estimate based on prior usage) Presenting Rhythm (TX) Atrial Pacing-Ventricular Sensing (AP-VS) --- rate 60's [...] Advance Directives For more information, please contact: [phone] * Full Code (Latest Code Status on File) Date Activated Date Inactivated Comments 05/24/2023 5:25 PM 05/25/2023 5:37 PM Care Teams Labor Contract Analyst Relationship Specialty Start Date End Date Link Hurley MD [address] [place] [address] [place] [address] PCP - General Internal Medicine 03/10/23
--- OUTSIDE RECORDS SUMMARY | 2025-01-10 15:23 | XMS_ITS | Clinical Summary ---
Author Organization [facility] [address] Address [address] [place] [address] Care Team Providers Care Box Order Person Name Role Phone Link Hurley MD Primary Care Provider [phone] Allergies Active Allergy Reactions Criticality Noted Date [...] 07/15/2023 Assessment & Plan (06/29/2024 11:27 AM CORN COOKER): -Dual chamber pacemaker is functioning appropriately as programmed -Lead impedances, sensing, and thresholds are stable -No programming changes -Continue remote monitoring quarterly -Follow up in 1 year for device check Assessment & Plan (07/15/2023 2:29 PM CORN COOKER): Dual chamber pacemaker is functioning appropriately as [...] 05/03/2023 Assessment & Plan (06/29/2024 12:01 PM CORN COOKER): -Symptomatic sinus node dysfunction s/p dual chamber pacemaker 05/24/2023 -Appropriate device function, atrial paced 61%. Assessment & Plan (07/15/2023 2:30 PM CORN COOKER): Symptomatic sinus node dysfunction s/p dual chamber [...] 05/15/2021 Assessment & Plan (06/29/2024 12:02 PM CORN COOKER): -AVNRT s/p successful ablation in 2020, Dr [...] with stent to the mid LAD in [place], [place] Fatigue and chest pain have resolved post stent Bradycardia longstanding. Chronic LBBB. If symptoms return, may consider evaluation for chronotropic incompetence, but at this time he reports appropriate HR elevation with activity and no symptoms of near syncope or syncope S/P coronary artery stent placement 01/20/2017 High cholesterol 04/15/2012 History of [place] (myocardial infarction) 04/15/2012 Sinusitis, chronic 04/15/2012 Encounters Date Type Department Care Team Description 10/11/2024 Orders Only [facility] Cardiology [address] [facility] Medical Office Building [address] [place] [address] Abner Ramirez MD from Last 3 Months [...] on file Legal Sex Male 2:15 PM CORN COOKER Gender Identity Male 07/09/2021 2:55 PM CORN COOKER Sexual Orientation Straight 07/09/2021 2: 55 PM CORN COOKER Obstetrics History Last Filed Vital Signs Vital Sign Reading Time Taken Comments Blood Pressure 138/72 07/22/2024 3:42 PM CORN COOKER Pulse 59 07/22/2024 3:42 PM CORN COOKER Temperature 37.2 C (98.9 F) 07/22/2024 3:42 PM CORN COOKER Respiratory Rate 20 07/22/2024 3:42 PM CORN COOKER Oxygen Saturation 96% 07/22/2024 3:42 PM CORN COOKER Inhaled Oxygen Concentration - - Weight 89.8 kg (198 lb) 07/22/2024 3:42 PM CORN COOKER Height 175.3 cm (5' 9) 06/29/2024 11:18 AM CORN COOKER Body Mass Index 29.24 06/29/2024 11:18 AM CORN COOKER Plan of Treatment Health Maintenance Due Date [...] Completed 07/31/2021 Medical Devices Implanted Type Area Graduate Engineer Device Identifier Shelf Expiration Date Model / Serial / Lot [employer] [id number] System 6-12fr Mvp Venous Closure Vascade - [id number] Implanted:Qty : 1 on 07/02/2021 by Abner Ramirez MD at [facility] Collagen [employer] 03/12/2023 800-612C- 10U / / [id number] 30C [employer] [id number] System 6-12fr Mvp Venous Closure Vascade - [id number] Implanted:Qty : 1 on 07/02/2021 by Abner Ramirez MD at [facility] [employer]agen [employer] 03/12/2023 800-612C- 10U / / [id number] 30C [employer] [id number] Device Closure Vascade Od5 Fr Femoral Artery - [id number] Implanted:Qty : 1 on 07/02/2021 by Abner Ramirez MD at [facility] Collagen [employer] 04/14/2023 700-500DX -05U / / [id number] 920A [employer] [id number] Device Closure Vascade Od5 Fr Femoral Artery - [id number] Implanted:Qty : 1 on 07/02/2021 by Abner Ramirez MD at [facility] Collagen [employer] 04/14/2023 700-500DX -05U / / [id number] 920A [employer] Tendril Sts 6fr 58cm Is-1 Connector Active Fixation Bipolar Soft 2087tc/58 - [id number] - [id number] Implanted:Qty : 1 on 05/24/2023 by Abner Ramirez MD at [facility] Lead Right: Ventricle [employer] 04/24/2026 2088TC/58 / [id number] / [id number] [employer] Tendril Sts 6fr 52cm Is-1 Connector Active Fixation Bipolar Soft 8tc/52 - [id number] - [id number] Implanted:Qty : 1 on 05/24/2023 by Abner Ramirez MD at [facility] Lead N/A: Atria [employer] 03/25/2026 2088TC/52 / [id number] / [id number] [employer] Assurity Mri 64l03wj 2 Chamber Is-1 Connector Thk6mm Pacemaker [id number] - [id number] - [id number] Implanted:Qty : 1 on 05/24/2023 by Abner Ramirez MD at [facility] Pacemaker Left: Chest Wall [employer] 09/22/2024 [id number] / [id number] / [id number] Multi Link- 0 Implanted: (Quantity not [...] estimate based on prior usage) Presenting Rhythm ([place]) Atrial Pacing-Ventricular Sensing (AP-VS) --- rate 60's [...] estimate based on prior usage) Presenting Rhythm (NV) Atrial Pacing-Ventricular Sensing (AP-VS) --- rate 60's [...] Most Recently Relevant to Health Maintenance Insurance [facility] MEDICARE T MEDICARE [facility] MEDICARE Advance Directives For more information, please contact: [phone] * Full Code (Latest Code Status on File) Date Activated Date Inactivated Comments 05/24/2023 5:25 PM 05/25/2023 5:37 PM Care Teams Box Order Person Relationship Specialty Start Date End Date Link Hurley MD [address] [place] [address] [place] [address] PCP - General Internal Medicine 03/10/23
--- OUTSIDE RECORDS SUMMARY | 2025-01-10 15:23 | XMS_ITS | Patient Health Record ---
Author Organization [employer] [facility] Address [address] [facility] [address] [place] [address] Care Team Providers Care Elastic Cutter Name Role Phone Link Hurley Primary Care Provider UnavailBrant Chairez Unavailable [phone] Allergies Allergen (clinical drug ingredient) Drug/Non Drug Allergy documented on EMR Reaction Allergy Type Onset Date Status Ceftin Unknown Drug Allergy Active cefuroxime Cefuroxime Sodium Unknown Drug Allergy Active Medicinal cephalosporin and acting as antibacterial agent (FN) Cephalosporins stomach upset Drug Allergy 03/26/2023 active Reason For Referral No Information Medications Medication SIG (Take, Route, Frequency, Duration) Notes Start Date End Date Status Singulair Active Montelukast Sodium A ctive Ipratropium [place] HFA Active Clopidogrel & Aspirin Active Dutasteride-Tamsulosin HCl Active Probiotic Active ALPRAZolam As needed Active OTC/Vitamins Centrum Silver, CoQ10, Magnesium, Vitamin D3, Flonase Active Famotidine 20 MG TAKE 1 TABLET TWICE A DAY for 90 Active Lisinopril Active Rosuvastatin Calcium Active Immunizations Vaccine Route Administration Date Status Comme nts Pneumococcal polysaccharide PPV23 Unknown 04/29/2019 Ad ministered Social History Tobacco Use: Social History Observation Description Date Details (start date - stop date) Former Smoker NA - NA Tobacco Use/Smoking Question Answer Notes Are you a former smoker How long has it been since you last smoked? > 10 years Problems Problem Type SNOMED Code ICD Code Onset Dates Problem Status W/U Status Risk Notes Problem 134572629 Esophageal obstruction (K22.2) Active confirmed Problem 943054097 Colon cancer screening (Z12.11) Active confirmed He had a normal colonoscopy in 2008. His bowel movements have been normal and he denies having any blood in the stool. Problem 884166929 GERD (gastroesophageal reflux disease) (K21.9) Active confirmed He had an upper endoscopy in 2017, which revealed grade C reflux esophagitis, benign stenosis, and a few gastric polyps. His symptoms have been well controlled on Pantoprazole 40 mg daily. He has recently started the Bharti Bentley diet to help with weight loss. He has not had any more episodes of dysphagia. Problem 01465846 Dysphagia (R13.10) Active confirmed Problem 954017466 Long-term use of high-risk medication (Z79.899) Active confirmed Problem 975695774 Diverticulosis o f colon (without mention of hemorrhage) (K57.30) Active confirmed Problem 193445473 Malabsorption (K90.9) Active confirmed Encounters Encounter Location Date Provider Diagnosis [facility], [address] [place] [address] 05/23/2024 Brant Correa [facility], [address] [place] [address] 2024 Brant Correa Plan Of Treatment Next Appt Details Provider Name:Brant burrell, 02/01/2025 10:20:00 AM, [address] [place] [address] [address], [place], [address], Insurance Providers Payer Name Payer Address Payer Phone Subscriber Number Group Number Insured Name Patient Relationship to Insured Coverage Start Date Coverage End Date [employer] Medicare Ppo E2 [address] [place] [address] [id number] Oral Bernal Self - patient is the insured Medical (General) History Medical History History ICD Code GERD Hemorrhoids Hiatal Hernia Diverticulosis Hypertension Hypercholestemia Benign Prostatic Hyperplasia Myocardial Infarction Chronic Sinusitis Atrial Fibrillation Hearing Loss Heart Disease/Stents Arthritis Sleep Apnea Coronary Artery Disease Surgical History Surgery Date(Month/Year) Colonoscopy:Hemorrhoids foun d on perianal exam.Diverticulosis in the sigmoid colon.Examined portion of ileum was normal.Non bleeding external and internal hemorrhoids.Examination was otherwise normal. 03/2019 Endoscopy:LA Grade C reflux esophagitis.Benign appearing esophageal stenosis.Small hiatal hernia.Few gastric polyps.Normal examined duodenum. 11/2016 Triple Hernia Repair 1990 Heart Stents x3 2021 Nasal Surgery 2004 Tonsillectomy Cardiac Ablation Eye Hospitalization History Reason Date(Month/Year) [place] 1999
--- OUTSIDE RECORDS SUMMARY | 2025-01-10 15:23 | XMS_ITS ---
Author Organization [facility] Address [address] [address] Care Team Providers Care Judo Instructor Name Role Phone Violettemisaelashlyn Link Primary Care Provider Unavailab Murphy Taylor DPM [phone] Encounters Encounter Location Date Provider Diagnosis [facility] [address] [facility] [address] [address] 05/23/2024 Murphy Cruz DPM PLAN OF TREATMENT No Information
--- OUTSIDE RECORDS SUMMARY | 2025-01-10 15:23 | XMS_ITS | Clinical Summary ---
Author Organization [facility] Address [address] [facility] [place] [address] Care Team Providers Care Electric Frying Pan Repairer Name Role Phone Arthur Sumner MD Primary Care Provider [phone] Johnie Aaron MD Unavailable [phone] Source Comments [facility],non-[facility] Affiliates and Associated Physician Practices is amultiple site organization consisting of ambulatory clinics and hospital sitesin [place], [place], [place] and [place]. This disclosure is being madepursuant to the Care Everywhere program and may not contain all information available regarding this patient. 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
--- OUTSIDE RECORDS SUMMARY | 2025-01-10 15:24 | XMS_ITS ---
Author Organization [facility] Address [address] [address] Care Team Providers Care Golf Ball Inspector Name Role Phone Xavi Link Primary Care Provider Unavailab Murphy Taylor DPM [phone] REASON FOR VISIT rt foot MEDICATIONS Medication SIG (Take, Route, Fr equency, Duration) Notes Start Date End Date Status metoprolol Active Livalo 1 MG 1 tablet Orally Once a day for 30 day(s) Active amlodipine Active traMADol HCl 50 MG 1 tablet as needed f or prn pain Orally every 8 hours for 7 days 05/29/2024 Active Vilma Active Ranitidine Active Low-Dose Aspirin Act wilfredo Trent-Phyl Active Singulair Active SOCIAL HISTORY Tobacco Use: Social History Observation Description Date Details (start date - stop date) Never Smoker NA - NA Sex Assigned At : Social History Observation Description Sex Assigned At Unknown Tobacco Use: Question Answer Notes Patient is a: nonsmoker Alcohol screening: Question Answer Notes Did you have a drink contain ing alcohol in the past year? Yes How often did you have a dri nk containing alcohol in the past year? Monthly or less (1 point) Encounters Encounter Location Date Provider Diagnosis [facility] [address] [facility] [address], [place] [address] 05/29/2024 Murphy Cruz DPM Strain of right Achilles tendon, initial encounter S86.011A ASSESSMENTS Encounter Date Diagnosis Assessment Notes Treatment Notes Treatment Clinical Notes 05/29/2024 Strain of right Achilles tendon, initial encounter (ICD-10 - S86.011A) Patient was advised that he likely overused the right foot during the grocery trip, and that he should go through with his physical therapy evaluation on . He was recommended to call the office if the pain gets any worse after his first two physical therapy visits. Rx for tramadol dispensed to the patient's pharmacy. 05/29/2024 Other PLAN OF TREATMENT Medication Medication Name Sig Start Date Stop Date Notes traMADol HCl 50 MG 1 tablet as needed f or prn pain Orally every 8 hours for 7 days 05/29/2024 Treatment Notes Assessment Notes Strain of right Achilles ten don, initial encounter Patient was advised that he likely overused the right foot during the grocery trip, and that he should go through with his physical therapy evaluation on . He was recommended to call the office if the pain gets any worse after his first two physical therapy visits. Rx for tramadol dispensed to the patient's pharmacy. Progress Notes * Examination Category Sub-Category Detail Notes General Examination GENERAL APPEARANCE: RIGHT lo wer extremity Vascular: DP and PT pulses are palpable 2 out of 4. Capillary refill time is less than 3 seconds to all digits of the right lower extremity. Skin temp is warm to warm and a proximal to distal fashion. Dorsal pedal hair growth present. Absent dependent rubor. No edema. Neurological: Epricritic sensation grossly intact to right foot. Proprioception intact at first metatarsal phalangeal joint. Dermatological: Toenails 1 through 5 are within normal limits. Webspaces 1 through 4 are clean, dry and intact. No rashes noted. Skin is supple and well hydrated. No open wounds or ulcerations noted. Musculoskeletal: Muscle strength is 5 out of 5 for all groups of the lower extremity. No pain with medial to lateral compression of the calf muscle. Ankle joint and subtalar joint range of motion are full without pain or crepitus. No significant pain with palpation along the Achilles tendon. Mild pain with palpation at the Achilles tendon near myotendinous junction.Negative Rodriguez squeeze test No obvious pedal abnormalities or deformities noted. History and Physical Notes * HPI (History of Present Illness) Category Sub-Category Detail Notes Depression Screening PHQ-2 (2015 Edition) Little interest or pleasure in doing things?: Not at all Feeling down, depressed, or hopeless?: N ot at all Total Score: 0
--- OUTSIDE RECORDS SUMMARY | 2025-01-10 15:24 | XMS_ITS | Data Portability ---
Author Organization [facility] Address [address] [place] [address] Care Team Providers Care Cash Shortage Investigator Name Role Phone DEMETRI SETHI Primary Care Provider [phone] REYNA PRUETT Ventilation Mechanic CARI ANNA OTHER Assessment Encounter Date Assessment Date Assessment LastModified by Organization Details LastModified Time 11/18/2022 11/18/2022 Evaluation and assessment performed by Sandra MATHEW [email or web address] Not available 11/17/2022 16:22:09 12/03/2022 12/03/2022 Evaluation and assessment performed by Sandra MATHEW [email or web address] Not available 12/03/2022 08:45:33 09/08/2023 09/08/2023 Evaluation and assessment performed by Sandra MATHEW [email or web address] Not available 09/08/2023 09:09:17 08/31/2024 08/31/2024 Evaluation today performed by Cipriano Story PA-C Not available 08/31/2024 11:54:48 Plan of Treatment Reminders Order Date Submit Date Provider Last Modified By Organization Details Last Modified Time Details Appointments FOLLOW-UP VISIT 2025 11:00A Marita Blackmon MD Not available Not available Not available Lab None recorded. Referral None recorded. Procedures None recorded. Surgeries None recorded. Imaging electroca rdiogram 2023 024 [email or web address] [facility] In House Orders - DO Not Merge DO Not Delete, [address], [address], [place], [address], 10/04/2023 10:47:21 case monitor 2022 023 [email or web address] [facility] In House Orders - DO Not Merge DO Not Delete, [address], [address], [place], [address], 12/04/2022 14:09:47 electroca rdiogram 2022 023 [email or web address] [facility] In House Orders - DO Not Merge DO Not Delete, [address], [address], [place], [address], 11/19/2022 08:52:57 Medication Orders None recorded. Patient TargetsNo targets recorded. Patient Instructions Encounter Date Encounter Id Patient Instructions Last Modified By Organization Details Last Modified Time 11/18/2022 [id number] supraventricular tachycardia: care instructions [email or web address] Not available 11/18/2022 14:04:32 12/03/2022 [id number] supraventricular tachycardia: care instructions [email or web address] Not available 12/03/2022 14:11:43 dizziness: care instructions [email or web address] Not available 12/03/2022 14:11:43 08/11/2023 [id number] supraventricular tachycardia: care instructions [email or web address] Not available 08/11/2023 11:39:08 dizziness: care instructions [email or web address] Not available 08/11/2023 11:39:08 09/08/2023 [id number] supraventricular tachycardia: care instructions [email or web address] Not available 09/08/2023 12:03:12 dizziness: care instructions [email or web address] Not available 09/08/2023 12:03:12 08/31/2024 [id number] supraventricular tachycardia: care instructions Not available 08/31/2024 11:55:37 dizziness: care instructions Not available 08/31/2024 11:55:37 Reason for Referral None Reported. Results Created Date Observation Date Name Description Value Unit Range Abnormal Flag Note LastModifiedBy Organization Detail LastModifiedTime 08/27/19 24 08/28/2023 LIPID PANEL , STAND LILIANA cholesterol, total 121 mg/dL <200 normal Not Available No [facility] [place] [facility] [address], [place], [address], 08/28/2023 03:43:04 08/27/19 24 08/28/2023 LIPID PANEL , STAND LILIANA HDL cholesterol 54 mg/dL > or = 40 normal Not Available [facility] [place] [facility] [address], [place], [address], 08/28/2023 03:43:04 08/27/19 24 08/28/2023 LIPID PANEL , STAND LILIANA triglyceride s 76 mg/dL <150 normal Not Available [facility] [place] [facility] [address], [place], [address], 08/28/2023 03:43:04 08/27/19 24 08/28/2023 LIPID PANEL , STAND LILIANA LDL-choleste rol 51 mg/dL _(deborah c) normal Refer ence range : <100 Emmett able range <100 mg/dL for prima ry preve ntion ; <70 mg/dL for patie nts with CHD or diabe tic patie nts with > or = 2 CHD risk facto rs. LDL-C is now calcu lated using the Angella n-Hop kins calcu stanton n, which is a valid ated novel metho d provi ding brett r accur acy than the Fried estuardo equat ion in the estim ation of LDL-C . Angella munoz SS et al. RAJIV. 2013; 310(1 9): 2061- 2068 (http ://ed ucati on.Qu Azeem Elixr. com/f aq/FA Q164) Not Available [facility] [place] [facility] [address], [place], [address], 08/28/2023 03:43:04 08/27/19 24 08/28/2023 LIPID PANEL , STAND LILIANA chol/HDLC ratio 2.2 (calc ) <5.0 normal Not Available [facility] [place] [facility] [address], [place], [address], 08/28/2023 03:43:04 08/27/19 24 08/28/2023 LIPID PANEL , STAND LILIANA non HDL cholesterol 67 mg/dL _(deborah c) <130 normal For patie nts with diabe david plus 1 major ASCVD risk facto r, treat ing to a non-H DL-C goal of <100 mg/dL (LDL- C of <70 mg/dL ) is consi dered a thera peuti c optio n. Not Available [facility] [place] [facility] [address], [place], [address], 08/28/2023 03:43:04 11/19/19 23 11/18/2022 elect rocar diogr am No observ ation record ed. BARCODE [employer] In House Orders - DO Not Merge DO Not Delete [address], [place], [address], 11/18/2022 12:21:29 12/04/19 23 11/26/2022 cardi ac heide teriz ation (SURG ) No observ ation record ed. [email or web address] Not Available 2022 09:40:42 08/11/19 24 08/11/2023 elect rocar diogr am No observ ation record ed. BARCODE Not Available 2023 12:31:41 08/31/19 25 08/31/2024 elect rocar diogr am No observ ation record ed. BARCODE Not Available 2024 12:24:58 Result Notes None recorded. Problems Name Problem SNOMED Code Status Onset Date Resolution Date Notes Provider Name and Address Organization Details Recorded Time Disorder of carotid artery 987361145 Active [place] [employer] 2 12:43:17 Essential hypertension 13952542 Active Myra david null, [place] [employer] 2 12:43:44 Dyslipidemia 783988055 Active Myra david null, [employer] 2 12:43:54 Fatigue 08312492 Active Myra david null, [facility] 2 12:44:14 Chest pain 94152940 Active 2021 Colleen Alexa null, [facility] 2 08:20:42 Coronary arterioscleros is 10177693 Active 2021 Colleen Alexa null, [facility] 2 08:20:50 Stented coronary artery 547252959 Active 2021 Colleen Alexa null, [facility] 2 08:20:56 Supraventricul ar tachycardia 6517902 Active 2021 Colleen Alexa null, [facility] 2 08:21:21 Paroxysmal supraventricul ar tachycardia 69512339 Active 2022 Berhane Olvera null, [facility] 3 16:22:11 Dizziness 185962800 Active 2023 Berhane Olvera null, [facility] 4 14:33:25 Problem Notes None recorded. Procedures Surgical History Date Name Laterality Status Provider Name and Address Organization Details Recorded Time 11/27/19 23 Cardiac Catheterization completed RICK Gillis [facility] [address],[address], [place], [address], [facility] 12/03/2022 12:35:55 09/30/19 22 Cardiac Catheterization completed RICK Gillis [facility] [address],[address], [place], [address], [facility] 2021 10:19:34 11/24/19 21 [facility] 2021 08:28:56 07/26/19 00 [facility]iac [facility] 2021 08:28:52 Cardiac Ablation [facility]O [facility] 2021 08:22:16 Imaging Results None recorded. Procedure Notes None recorded. Medical Equipment None Reported. Allergies Allergen ID Allergen Name Allergen Category Reaction Reaction Severity Criticality Documentation Date Start Date Code Code System Note Provider Name and Address Organization Details Recorded Time 64519 Ceftin medicatio n Not available Not available Not available 10/08/2021 40498 6 RxNorm Myra Gopi wiggins, [facility] [employer] [facility] 2 12:41:59 Medications Name Sig Start Date Stop Date Status Note LastModified by Organization Details LastModified Time Singulair 10 mg tablet Take 1 tablet every day by oral route. active Not Available Not Available No t Available atorvastati n 80 mg tablet Take 1 tablet by mouth at bedtime 2022 active Not Available Not Available Not Avai lable isosorbide mononitrate ER 30 mg tablet,exte nded release 24 hr Take 1 tablet every day by oral route in the morning. 10/09 completed Not Available Not Available Not Available clopidogrel 75 mg tablet Take 1 tablet every day by oral route. active Not Available Not Available No t Available aspirin 81 mg tablet,edu yed release Take 1 tablet every day by oral route. 08/31 completed Not Available Not Available Not Available isosorbide dinitrate 30 mg tablet Take 1 tablet twice a day by oral route. 10/09 completed Not Available Not Available Not Available alprazolam 0.25 mg tablet Take 1 tablet every day by oral route as needed. active Not Available Not Available No t Available famotidine 20 mg tablet Take 1 tablet every day by oral route. active Not Available Not Available No t Available tamsulosin 0.4 mg capsule Take 1 capsule every day by oral route. active Not Available Not Available No t Available pantoprazol e 40 mg tablet,edu yed release Take 1 tablet every day by oral route. 09/08 completed Not Available Not Available Not Available lisinopril 10 mg tablet Take 1 tablet every day by oral route. active Not Available Not Available No t Available nitroglycer in 0.[address] 1 TABLET (0.4 MG) BY SUBLINGUA L ROUTE AT 1ST SIGN OF ATTACK; MAY REPEAT EVERY 5 MINUTES UP TO 3 TABS; IF NO RELIEF SEEK MEDICAL HELP active Not Available Not Available No t Available ipratropium bromide 21 mcg (0.03 %) nasal spray [place] 2 sprays twice a day by intranasa l route as needed. active Not Available Not Available No t Available dutasteride 0.5 mg capsule Take 1 capsule every day by oral route. active Not Available Not Available No t Available rosuvastati n 10 mg tablet Take 1 tablet every day by oral route. 08/11 completed Not Available Not Available Not Available metoprolol succinate 10/09 completed 50 MG Not Available Not Available Not Available Centrum Silver active Not Available Not Available Not Available azelastine 205.5 mcg (0.15 %) nasal spray [place] 1 spray twice a day by intranasa l route as needed. active Not Available Not Available No t Available fluticasone prop.50 mcg spray,suspe n-sod.chlor martha 0.9% nasal spray kit Take 1 kit every day by nasal route. active Not Available Not Available No t Available Flonase Sensimist 27.5 mcg/actuati on nasal spray,suspe nsion as directed active Not Available Not Available No t Available Lacto no.37-B.ani rominais,stephenu m QD active Not Available Not Available Not Available Vitals Date Recorded Body height Body mass index (BMI) Body weight Heart rate Oxygen saturation Oxygen saturation in Arterial blood by Pulse oximetry Systolic blood pressure Diastolic blood pressure Provider Name and Address Organization Details Last Updated DateTime 4 175.26 cm 27.7 kg/m2 38955.2 1 g 76 /min 96 % 96 % 138 mm[Hg] 85 mm[Hg] Berhane Olvera [facility] [employer] [facility] 4 11:05:28 Date Recorded Body height Body mass index (BMI) Body weight Heart rate Oxygen saturation Oxygen saturation in Arterial blood by Pulse oximetry Respiratory rate Systolic blood pressure Diastolic blood pressure Provider Name and Address Organization Details Last Updated DateTime 5 175.26 cm 28.9 kg/m2 19992.3 9 g 66 /min 96 % 96 % 18 /min 132 mm[Hg] 70 mm[Hg] Joy Smith [facility] [employer] [facility] 5 11:35:37 Date Recorded Body height Provider Name an d Address Organization Details Last Updated DateTime 09/08/2023 175.26 cm Pilar Prieto [facility] [employer] [facility] 09/08/2023 11:43:21 Date Recorded Body height Body mass index (BMI) Body weight Heart rate Oxygen saturation Oxygen saturation in Arterial blood by Pulse oximetry Respiratory rate Systolic blood pressure Diastolic blood pressure Provider Name and Address Organization Details Last Updated DateTime 3 175.26 cm 27.2 kg/m2 35601 g 52 /min 98 % 98 % 16 /min 120 mm[Hg] 60 mm[Hg] Berhane Dowlingjas [facility] 3 11:11:17 Date Recorded Body height Body mass index (BMI) Body weight Respiratory rate Oxygen saturation Oxygen saturation in Arterial blood by Pulse oximetry Heart rate Systolic blood pressure Diastolic blood pressure Provider Name and Address Organization Details Last Updated DateTime 3 175.26 cm 26.6 kg/m2 08763.6 3 g 17 /min 97 % 97 % 58 /min 120 mm[Hg] 72 mm[Hg] Pilar Prieto [facility] 3 13:48:04 Social History Question Answer Notes LastModified by [employer] ion Details LastModified Time Tobacco Smoking Status Former Smoker Cally wiggins, [facility] 2021 09:36:27 Do You Have An Advance Directive? Yes [email or web address] Information not available 2021 Is Blood Transfusion Acceptable In An Emergency? Yes Information not available 2021 What Is Your Level Of Caffeine Consumption? Moderate 1 Cup Daily. 12oz. [email or web address] Information not available 11/18/2022 What Is Your Code Status? Full Code [email or web address] Information not available 2021 In The 14 Days Before Symptom Onset, Have You Had Close Contact With A Laboratory-confir med COVID-19 While That Case Was Ill? No [email or web address] Information not available 2021 In The 14 Days Before Symptom Onset, Have You Had Close Contact With A Person Who Is Under Investigation For COVID-19 While That Person Was Ill? No [email or web address] Information not available 2021 Have You Been To An Area Known To Be High Risk For COVID-19? No [email or web address] Information not available 2021 What Type Of Diet Are You Following? REGULAR [email or web address] Information not available 2021 Do You Have A Directive To Physicians? Yes [email or web address] Information not available 2021 How Many Times Per Week Do You Exercise? 1-2 Times Per Week Walking Some [email or web address] Information not available 2021 When Did You Quit Smoking? 16+yearssinc elastcigaret te 1980s [email or web address] Information not available 2021 Do You Have A Medical Power Of Wireless Technician? No [email or web address] Information not available 2021 What Was The Date Of Your Most Recent Tobacco Screening? 08/31/2024 [email or web address] Information not available 08/31/2024 Do You Have An Out Of Hospital DNR? No [email or web address] Information not available 2021 What Is Your Relationship Status? [email or web address] Information not available 2021 At What Age Did You Start Smoking Tobacco? 19 Information not available 2021 Do You Have Any Dietary Restrictions? No [email or web address] Information not available 2021 Sex: Male Functional Status Question Answer Note LastModified by Organizat ion Details LastModified Time Do you use any illicit or recreational drugs? No [email or web address] Information not available 2021 Do you or have you ever used any other forms of tobacco or nicotine? No [email or web address] Information not available 2021 What is your level of alcohol consumption? None [email or web address] Information not available 11/18/2022 Are you currently employed? No [employer] [facility] [employer] [email or web address] Information not available 10/08/2021 What is your exercise level? None [email or web address] Information not available 2021 Mental Status None recorded. Family History Relationship Description Onset Age of this Age Resolved Age Notes LastModified by Organization Details LastModified Time Unspecified Relation Myocardial infarction Not available 09/23 12:50:31 Medical History Condition Response Coronary Artery Disease Dyslipidemia Y GERD Y Echocardiograms Y Arrhythmia Cardiac Cath Y Chest X-Ray Y Hypertension Y Immunizations Vaccine Type Date Status Note Provider Nam e and Address Organization Details Recorded Time Influenza, split virus, quadrivalent, preservative completed YOLIE Poole - [facility] [employer] 2021 09:36:59 Past Encounters Encounter ID Performer Location Encounter Start Date Encounter Closed Date Diagnosis/Indication Diagnosis SNOMED-CT Code Diagnosis ICD10 Code Diagnosis Note [id number] RICK Gillis [facility] [address] [facility] [address] [place] [address] 2021 09:15:14 2021 10:42:26 Coronary arteriosclerosis 18301743 I25.10 [place] with 2 bare-metal stents to the RCA and 1 bare-metal stent to the left circumflex in 1999 - Cardiac catheteriz ation with drug-eluti ng stent to the left circumflex 11/2020 -Cardiac catheteriz ation 09/29/2021 which revealed severe distal RCA and moderate LAD disease - underwent 2 LEANNE (distal RCA and mid RCA Xience Skypoint 3.0 mm x 38 mm; distal RCA Xience Skypoint 3.0 mm x 15 mm)-genera lly seems to be improving, however fatigue is still an issue. Also notes atypical chest discomfort at times.-ref er to cardiac rehab-cont inue ASA/clopid ogrel; did not tolerate Brilinta due to side effect of dyspnea.-t arget LDL <70 mg/dL Stented co ronary artery 975360816 Z95.5 see above notes Essential hypertension 61586594 I10 BP in good controlcon tinue lisinopril -needs periodic BP montioring Dyslipidemia 344329906 E 78.5 [id number] Alvaro Blackmon MD [facility] [address] [address] [address] 11/10/2021 11:07:09 11/11/2021 13:23:19 Coronary arteriosclerosis 51738717 I25.10 November 102Corona ry artery disease: The patient feels better, without significan t chest pain or dyspnea over the past several weeks. He is compliant with his dual antiplatel et therapy and high intensity statin. He is about to start cardiac rehabilita tion in the next several days.He [place]ime [place] of [place]. - return to the office in July 2022. - [place] with 2 bare-metal stents to the RCA and 1 bare-metal stent to the left circumflex in 1999 - Cardiac catheteriz ation with drug-eluti ng stent to the left circumflex 11/2020 -Cardiac catheteriz ation 09/29/2021 which revealed severe distal RCA and moderate LAD disease - underwent 2 LEANNE (distal RCA and mid RCA Xience Skypoint 3.0 mm x 38 mm; distal RCA Xience Skypoint 3.0 mm x 15 mm)-genera lly seems to be improving, however fatigue is still an issue. Also notes atypical chest discomfort at times.-ref er to cardiac rehab-cont inue ASA/clopid ogrel; did not tolerate Brilinta due to side effect of dyspnea.-t arget LDL <70 mg/dL Stented co ronary artery 807625039 Z95.5 see above notes Essential hypertension 82031760 I10 November 10lood pressure is well controlled . Continue lisinopril . BP in good controlcon tinue lisinopril -needs periodic BP montioring Dyslipidemia 658618408 E 78.5 November 10ontin ue rosuvastat in - Will consider increasing the dose during the next visit. [id number] RICK Gillis [facility] [address] [place] [address] 08/12/2022 11:08:35 08/12/2022 11:47:13 Coronary arteriosclerosis 66927507 I25.10 August 12, 2022:Subse quent PCI of mid LAD January of 2022; after which symptoms did not improve, although he does not report having chest pain any longer, which he was reporting to me in October of 2021.Will request records from [facility] in [place], [place] ang[place], fatigue symptoms improved-n eeds continued and aggressive risk factor modificati on.-will have him follow up with Dr. Blackmon in the spring and will decide at that time about reducing clopidogre l alone. November 10orona ry artery disease: The patient feels better, without significan t chest pain or dyspnea over the past several weeks. He is compliant with his dual antiplatel et therapy and high intensity statin. He is about to start cardiac rehabilita tion in the next several days.He will spend summertime [place] of state. - return to the office in July 2022. - [place] with 2 bare-metal stents to the RCA and 1 bare-metal stent to the left circumflex in 1999 - Cardiac catheteriz ation with drug-eluti ng stent to the left circumflex 11/2020 -Cardiac catheteriz ation 09/29/2021 which revealed severe distal RCA and moderate LAD disease - underwent 2 LEANNE (distal RCA and mid RCA Xience Skypoint 3.0 mm x 38 mm; distal RCA Xience Skypoint 3.0 mm x 15 mm)In [place] he did undergo subsequent PCI to the-refer to cardiac rehab-cont inue ASA/clopid ogrel; did not tolerate Brilinta due to side effect of dyspnea.-t arget LDL <70 mg/dL Essential hypertension 79408845 I10 August 12, 2022:As far as he knows, blood pressure has been in good range.Apri l lood pressure is well controlled . Continue lisinopril . BP in good controlcon tinue lisinopril -needs periodic BP montioring Dyslipidemia 313028594 E 78.5 August 12, 2022He does not recall last time he had lab work done; will request records as noted above; will review and let him know if we need any new labs prior to next visit. November 10ontin ue rosuvastat in - Will consider increasing the dose during the next visit. Stented co ronary artery 426092773 Z95.5 see above notes Paroxysmal supraventricular tachycardia 93224360 I47.1 ablation done at [facility] in [place], [place] in 2021-no recurrent palpitatio ns; had follow up in the fall of 2021 (history from patient is vague)-had ECG at that time; will need to request records. [id number] Alvaro Blackmon MD [facility] [address] [place] [address] 11/18/2022 11:00:52 11/18/2022 15:09:11 Coronary arteriosclerosis 82077522 I25.10 November 18, 2022The patient has been having episodes of chest pain as well as fatigue over the past several months. He reports having occasional bilateral arm pain. He did have PCI of the LAD last year. However, his symptoms appear to be similar to the time before his revascular ization. At this point, I recommend that we proceed with another invasive cardiac evaluation consisting of a cardiac catheteriz ation and possible percutaneo us coronary interventi on.Continu e aspirin and clopidogre l for antiplatel et therapy. I will increase the rosuvastat in to 20 mg p.o. nightly. August 12, 2022:Subse quent PCI of mid LAD January of 2022; after which symptoms did not improve, although he does not report having chest pain any longer, which he was reporting to me in October of 2021.Will request records from [facility] in [place], [place] ang[place], fatigue symptoms improved-n eeds continued and aggressive risk factor modificati on.-will have him follow up with Dr. Blackmon in the spring and will decide at that time about reducing clopidogre l alone. November 10orona ry artery disease: The patient feels better, without significan t chest pain or dyspnea over the past several weeks. He is compliant with his dual antiplatel et therapy and high intensity statin. He is about to start cardiac rehabilita tion in the next several days.He will spend [place] of [place]. - return to the office in July 2022. - [place] with 2 bare-metal stents to the RCA and 1 bare-metal stent to the left circumflex in 1999 - Cardiac catheteriz ation with drug-eluti ng stent to the left circumflex 11/2020 -Cardiac catheteriz ation 09/29/2021 which revealed severe distal RCA and moderate LAD disease - underwent 2 LEANNE (distal RCA and mid RCA Xience Skypoint 3.0 mm x 38 mm; distal RCA Xience Skypoint 3.0 mm x 15 mm)In [place] he did undergo subsequent PCI to the-refer to cardiac rehab-cont inue ASA/clopid ogrel; did not tolerate Brilinta due to side effect of dyspnea.-t arget LDL <70 mg/dL Essential hypertension 59092952 I10 November 18, 2022 hypertensi on: Blood pressure appears to be relatively well controlled at this time. Continue lisinopril at the current dose. Dyslipidemia [id number] E 78.5 November 18, 2022 dyslipidem ia: Patient has a history of coronary artery disease and elevated lipids. As mentioned previously , I recommend that we consider increasing the rosuvastat in to 20 mg p.o. nightly. Stented co ronary artery [id number] Z95.5 see above notes Paroxysmal supraventricular tachycardia [id number] I47.1 ablation done at [facility] in [place], [place] in 2021-no recurrent palpitatio ns; had follow up in the fall (history from patient is vague)-had ECG at that time; will need to request records. [id number] RICK Gillis [facility] [address] [place] [address] 12/03/2022 13:35:09 12/03/2022 14:15:46 Coronary arteriosclerosis [id number] I25.10 November,s/p LEANNE to mid LADhe continues to be very fatigued; specifical ly he will go to the store and then be tired and inactive for 2 days.-no overt chest pain, dyspnea.-c ath sight is neurovascu larlly intact-dis cussed the importance of taking ASA/clopid orel without fail-recen t increase to atorvastat in 80 mg daily November 18, 2022The patient has been having episodes of chest pain as well as fatigue over the past several months. He reports having occasional bilateral arm pain. He did have PCI of the LAD last year. However, his symptoms appear to be similar to the time before his revascular ization. At this point, I recommend that we proceed with another invasive cardiac evaluation consisting of a cardiac catheteriz ation and possible percutaneo us coronary interventi on.Continu e aspirin and clopidogre l for antiplatel et therapy. I will increase the rosuvastat in to 20 mg p.o. nightly. August 12, 2022:Subse quent PCI of mid LAD January of 2022; after which symptoms did not improve, although he does not report having chest pain any longer, which he was reporting to me in October of 2021.Will request records from [facility] in [place], [facility] angina, fatigue symptoms improved-n eeds continued and aggressive risk factor modificati on.-will have him follow up with Dr. Blackmon in the spring and will decide at that time about reducing clopidogre l alone. November 10orona ry artery disease: The patient feels better, without significan t chest pain or dyspnea over the past several weeks. He is compliant with his dual antiplatel et therapy and high intensity statin. He is about to start cardiac rehabilita tion in the next several days.He [place] spend [place]ime out of state. - return to the office in July 2022. - TN with 2 bare-metal stents to the RCA and 1 bare-metal stent to the left circumflex in 1999 - Cardiac catheteriz ation with drug-eluti ng stent to the left circumflex 11/2020 -Cardiac catheteriz ation 09/29/2021 which revealed severe distal RCA and moderate LAD disease - underwent 2 LEANNE (distal RCA and mid RCA Xience Skypoint 3.0 mm x 38 mm; distal RCA Xience Skypoint 3.0 mm x 15 mm)In [place] he did undergo subsequent PCI to the-refer to cardiac rehab-cont inue ASA/clopid ogrel; did not tolerate Brilinta due to side effect of dyspnea.-t arget LDL <70 mg/dL Essential hypertension [id number] I10 November 18, 2022 hypertensi on: Blood pressure appears to be relatively well controlled at this time. Continue lisinopril at the current dose. Dyslipidemia [id number] E 78.5 November 18, 2022 dyslipidem ia: Patient has a history of coronary artery disease and elevated lipids. As mentioned previously , I recommend that we consider increasing the rosuvastat in to 20 mg p.o. nightly. Stented co ronary artery [id number] Z95.5 see above notes Paroxysmal supraventricular tachycardia [id number] I47.1 ablation done at [facility] in [place], [place] in 2021-no recurrent palpitatio ns; had follow up in the fall of 2021 (history from patient is vague)-had ECG at that time; will need to request records. Dizziness [id number] R42 will have him wear event monitor to see if he has issues with bradycardi a/high degree AVB Fatigue 22029156 R53.83 [id number] Alvaro Blackmon MD [facility] [address] [place] [address],[address] [place] [address] 08/11/2023 11:01:04 08/12/2023 12:36:23 Coronary arteriosclerosis [id number] I25.10 August 11, 2023No significan t plaints of chest pain or shortness of breath at this time.The patient continues to be compliant with all of the preventive therapy for coronary disease including aspirin, atorvastat in, and clopidogre l.He will need a fasting lipid profile in order to determine whether or not his lipid levels are meeting guideline recommenda tions.No indication at this time for diagnostic cardiac ischemic evaluation . November,s/p LEANNE to mid LADhe continues to be very fatigued; specifical ly he will go to the store and then be tired and inactive for 2 days.-no overt chest pain, dyspnea.-c ath sight is neurovascu larlly intact-dis cussed the importance of taking ASA/clopid orel without fail-recen t increase to atorvastat in 80 mg daily November 18, 2022The patient has been having episodes of chest pain as well as fatigue over the past several months. He reports having occasional bilateral arm pain. He did have PCI of the LAD last year. However, his symptoms appear to be similar to the time before his revascular ization. At this point, I recommend that we proceed with another invasive cardiac evaluation consisting of a cardiac catheteriz ation and possible percutaneo us coronary interventi on.Continu e aspirin and clopidogre l for antiplatel et therapy. I will increase the rosuvastat in to 20 mg p.o. nightly. August 12, 2022:Subse quent PCI of mid LAD January of 2022; after which symptoms did not improve, although he does not report having chest pain any longer, which he was reporting to me in October of 2021.Will request records from [facility] in [place], [place] ang[place], fatigue symptoms improved-n eeds continued and aggressive risk factor modificati on.-will have him follow up with Dr. Blackmon in the spring and will decide at that time about reducing clopidogre l alone. November 10orona ry artery disease: The patient feels better, without significan t chest pain or dyspnea over the past several weeks. He is compliant with his dual antiplatel et therapy and high intensity statin. He is about to start cardiac rehabilita tion in the next several days.He will spend summertime out of state. - return to the office in July 2022. - TN with 2 bare-metal stents to the RCA and 1 bare-metal stent to the left circumflex in 1999 - Cardiac catheteriz ation with drug-eluti ng stent to the left circumflex 11/2020 -Cardiac catheteriz ation 09/29/2021 which revealed severe distal RCA and moderate LAD disease - underwent 2 LEANNE (distal RCA and mid RCA Xience Skypoint 3.0 mm x 38 mm; distal RCA Xience Skypoint 3.0 mm x 15 mm)In [place] he did undergo subsequent PCI to the-refer to cardiac rehab-cont inue ASA/clopid ogrel; did not tolerate Brilinta due to side effect of dyspnea.-t arget LDL <70 mg/dL Essential hypertension [id number] I10 August 11, 2023The patient's blood pressure is reported to be well-contr olled at this time, averaging 120s to 130 over 70s to 80s. I asked him to check his blood pressure levels at home 3 times a week bring the results to his next office appointmen t.The patient underwent placement of a permanent pacemaker for symptomati c bradycardi a. November 18, 2022 hypertensi on: Blood pressure appears to be relatively well controlled at this time. Continue lisinopril at the current dose. Dyslipidemia [id number] E 78.5 August 11, 2023 dyslipidem ia: Patient has a history of coronary artery disease and elevated lipids.As mentioned previously , we will need to check his current lipid levels and adjust the medication s accordingl y. Stented co ronary artery [id number] Z95.5 see above notes Paroxysmal supraventricular tachycardia 19115983 I47.10 ablation done at [facility] in [place], [place] in 2021-no recurrent palpitatio ns; had follow up in the fall of 2021 (history from patient is vague)-had ECG at that time; will need to request records. Dizziness [id number] R42 will have him wear event monitor to see if he has issues with bradycardi a/high degree AVB Fatigue 13755611 R53.83 [id number] RICK Gillis [facility] [address] ,[facility] [address] [place] [address] 09/08/2023 11:43:08 09/08/2023 12:04:46 Coronary arteriosclerosis 82319915 I25.10 09/08/2023: Lipid panel 08/27/2023: TC 121, HDL 54, Trig 76, LDL 51lipids at target; will continue atorvastat in at current doseno anginacont inue aggressive risk factor modificati oncomplian t with DAPT August 11, 2023No significan t plaints of chest pain or shortness of breath at this time.The patient continues to be compliant with all of the preventive therapy for coronary disease including aspirin, atorvastat in, and clopidogre l.He will need a fasting lipid profile in order to determine whether or not his lipid levels are meeting guideline recommenda tions.No indication at this time for diagnostic cardiac ischemic evaluation . November,s/p LEANNE to mid LADhe continues to be very fatigued; specifical ly he will go to the store and then be tired and inactive for 2 days.-no overt chest pain, dyspnea.-c ath sight is neurovascu larlly intact-dis cussed the importance of taking ASA/clopid orel without fail-recen t increase to atorvastat in 80 mg daily November 18, 2022The patient has been having episodes of chest pain as well as fatigue over the past several months. He reports having occasional bilateral arm pain. He did have PCI of the LAD last year. However, his symptoms appear to be similar to the time before his revascular ization. At this point, I recommend that we proceed with another invasive cardiac evaluation consisting of a cardiac catheteriz ation and possible percutaneo us coronary interventi on.Continu e aspirin and clopidogre l for antiplatel et therapy. I will increase the rosuvastat in to 20 mg p.o. nightly. August 12, 2022:Subse quent PCI of mid LAD January of 2022; after which symptoms did not improve, although he does not report having chest pain any longer, which he was reporting to me in October of 2021.Will request records from [facility] in [place], [facility] angina, fatigue symptoms improved-n eeds continued and aggressive risk factor modificati on.-will have him follow up with Dr. Blackmon in the spring and will decide at that time about reducing clopidogre l alone. November 10orona ry artery disease: The patient feels better, without significan t chest pain or dyspnea over the past several weeks. He is compliant with his dual antiplatel et therapy and high intensity statin. He is about to start cardiac rehabilita tion in the next several days.He will spend summertime out of state. - return to the office in July 2022. - [place] with 2 bare-metal stents to the RCA and 1 bare-metal stent to the left circumflex in 1999 - Cardiac catheteriz ation with drug-eluti ng stent to the left circumflex 11/2020 -Cardiac catheteriz ation 09/29/2021 which revealed severe distal RCA and moderate LAD disease - underwent 2 LEANNE (distal RCA and mid RCA Xience Skypoint 3.0 mm x 38 mm; distal RCA Xience Skypoint 3.0 mm x 15 mm)In [place] he did undergo subsequent PCI to the-refer to cardiac rehab-cont inue ASA/clopid ogrel; did not tolerate Brilinta due to side effect of dyspnea.-t arget LDL <70 mg/dL Essential hypertension [id number] I10 09/09/2023: Reports adequate blood pressure control August 11, 2023The patient's blood pressure is reported to be well-contr olled at this time, averaging 120s to 130 over 70s to 80s. I asked him to check his blood pressure levels at home 3 times a week bring the results to his next office appointmen t.The patient underwent placement of a permanent pacemaker for symptomati c bradycardi a. November 18, 2022 hypertensi on: Blood pressure appears to be relatively well controlled at this time. Continue lisinopril at the current dose. Dyslipidemia 610601925 E 78.5 August 11, 2023 dyslipidem ia: Patient has a history of coronary artery disease and elevated lipids.As mentioned previously , we will need to check his current lipid levels and adjust the medication s accordingl y. Stented co ronary artery [id number] Z95.5 see above notes Paroxysmal supraventricular tachycardia 94164540 I47.10 ablation done at [facility] in [place], [place] in 2021-no recurrent palpitatio ns; had follow up in the fall of 2021 (history from patient is vague)-had ECG at that time; will need to request records. Dizziness [id number] R42 [place] EP placed PPM Dual Chamber; uncertain what type and I do not see in notes from Dr. Stern of [facility] Fatigue 41627068 R53.83 improved [id number] Cipriano Story PA-C [facility] [address] [place] [address] 08/31/2024 11:21:40 09/01/2024 10:27:02 Coronary arteriosclerosis 59903678 I25.10 08/31/2024:H istory of coronary stenting/a ngioplasty 01/2000 with 3.5 x 20 and 3.5 x 8 mm BMS to the RCAHistory of LEANNE to mid circumflex in [facility] 09/2021 severe distal RCA and moderate LAD disease, LEANNE to the distal RCA with Xience [place]ry point 3.0 x 30 mm LEANNE, Xience 3.0 x 15 mm DESHistory of coronary stent to the mid LAD 11/2022 Echo 09/2021 LVEF 55 to 60%, mild septal LVH, LV systolic function normal, no significan t valvular abnormalit ies. EKG 08/31/2024 A paced with PACs and underlying LBBB and associated ST-T changes, with normal QTc Labs 06/30/2024 hemoglobin 13.1, white blood cell count platelets normal. Creatinine 0.99, BUN 21, glucose 100, K4.8, NA 141. LFTs normal. TC 125, TG 59, HDL 53, LDL 59. Hemoglobin A1c 6.1%. Thyroid function normal. Continue plavix, statin therapy, ACEi, 09/08/2023: Lipid panel 08/27/2023: TC 121, HDL 54, Trig 76, LDL 51lipids at target; will continue atorvastat in at current doseno anginacont inue aggressive risk factor modificati oncomplian t with DAPT August 11, 2023No significan t plaints of chest pain or shortness of breath at this time.The patient continues to be compliant with all of the preventive therapy for coronary disease including aspirin, atorvastat in, and clopidogre l.He will need a fasting lipid profile in order to determine whether or not his lipid levels are meeting guideline recommenda tions.No indication at this time for diagnostic cardiac ischemic evaluation . November,s/p LEANNE to mid LADhe continues to be very fatigued; specifical ly he will go to the store and then be tired and inactive for 2 days.-no overt chest pain, dyspnea.-c ath sight is neurovascu larlly intact-dis cussed the importance of taking ASA/clopid orel without fail-recen t increase to atorvastat in 80 mg daily November 18, 2022The patient has been having episodes of chest pain as well as fatigue over the past several months. He reports having occasional bilateral arm pain. He did have PCI of the LAD last year. However, his symptoms appear to be similar to the time before his revascular ization. At this point, I recommend that we proceed with another invasive cardiac evaluation consisting of a cardiac catheteriz ation and possible percutaneo us coronary interventi on.Continu e aspirin and clopidogre l for antiplatel et therapy. I will increase the rosuvastat in to 20 mg p.o. nightly. Essential hypertension 15799609 I10 08/31/2024:B P acceptable in office today and according to discussion about home log 09/09/2023: Reports adequate blood pressure control August 11, 2023The patient's blood pressure is reported to be well-contr olled at this time, averaging 120s to 130 over 70s to 80s. I asked him to check his blood pressure levels at home 3 times a week bring the results to his next office appointmen t.The patient underwent placement of a permanent pacemaker for symptomati c bradycardi a. November 18, 2022 hypertensi on: Blood pressure appears to be relatively well controlled at this time. Continue lisinopril at the current dose. Dyslipidemia 605229538 E 78.5 08/31/2024:L DL well controlled Continue statin therapy August 11, 2023 dyslipidem ia: Patient has a history of coronary artery disease and elevated lipids.As mentioned previously , we will need to check his current lipid levels and adjust the medication s cristopherl y. Stented co ronary artery [id number] Z95.5 see above notes Paroxysmal supraventricular tachycardia 87169229 I47.10 ablation done at [facility] in [place], [place] in 2021 Dizziness [id number] R42 [place] EP placed PPM Dual Chamber; uncertain what type and I do not see in notes from Dr. Stern of [facility] Fatigue 09839583 R53.83 improved Sick sinus syndrome 3608 3008 I49.5 Sick sinus syndrome s/p dual-chamb er pacemaker implantati on 04/2023 Health Concerns Section Related Observation LastModified by Organization Detai ls LastModified Time None Recorded Concern Status LastModified by Organization Details LastModified Time None Recorded Advance Directives Directive Y: Payers Insurance Date Sequence Insurance Name Policy Number Policy Dobbins Covered Member ID Dobbins Member ID Guarantor Name 08/27/2024 2 *SELF PAY* Oral Bernal [id number] Oral Bernal 08/27/2024 1 [place] Oral Bernal [id number] Oral Bernal 08/28/2024 1 [employer] (PPO) [id number] Oral Bernal [id number] Oral Bernal 08/27/2024 1 [facility] (MEDICARE REPLACEMENT/A DVANTAGE - PPO) [id number] Oral Bernal [id number] Oral Bernal Notes Date Note Type Note Provider Name and Address Organization Details Recorded Time 11/18/2022 text/html Mr. Gabe pollard ro today for a routine 4 month follow up consult. 'Needs ECG. 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 He would like to discuss considering increasing the Rosuvastatin dose as agreed on last visit? He started cardiac rehab on .., well tolerated exercise not limited by cardiac symptoms. Last Labs 03/26/22? He denies having any chest pain, shortness of breath, palpitations, edemas or syncope.No recent hospitalizations or cardiac testing reported since last visit. Alvaro Blackmon MD [address], [place], [address], [facility] [employer] [facility] 11/18/2022 14:04:52 12/03/2022 text/html Mr. Bernal prese nts today to follow up to recent catherization as a result of episodes of chest pain as well as fatigue over the past several months. His symptoms appeared to be similar to the time before his revascularization of LAD last fall so underwent elective coronary catheterization yesterday 11/26/2022 which revealed a lesion of the mid LAD that was 85% stenosed. He is now s/p successful PCI with stent to mid LAD. still complaining of fatigue. He as low energy. Currently denies having any chest pain, shortness of breath, palpitations, edemas or syncope.No recent hospitalizations or cardiac testing reported since last visit. RICK Gillis [address] [place] [address],[address], [place], [address], [facility] [employer] 12/03/2022 14:14:14 08/11/2023 text/html Mr. Gabe pollard ro in office today for a 8 month regular follow up consult. States feeling well overall, no cardiac complaints at the moment.Pacemaker Dr Anna - last checked on .BP stable and controlled.Labs . Stays active by walking, no cardiac limitations. Currently denies having any chest pain, shortness of breath, palpitations, edemas or syncope.No recent hospitalizations or cardiac testing reported since last visit. Alvaro Blackmon MD [address] [place] [address],[address], [place], [address], [employer] 08/11/2023 11:40:06 09/08/2023 text/html Mr. Bernal gives consent to discuss recent labs.Compliant with DAPT.States feeling well overall, no cardiac complaints at the moment.Stays active by walking, no cardiac limitations. Currently denies having any chest pain, shortness of breath, palpitations, edema or syncope.No recent hospitalizations or cardiac testing reported since last visit. Alvaro Blackmon MD [address] [place] [address],[address], [place], [address], [employer] 09/08/2023 17:11:26 08/31/2024 text/html Mr. Gabe pollard ro in office today for a routine annual follow up consult. States feeling well overall, no cardiac complaints at the moment.BP- Been ok.Labs- 06/30/2024 Stays active by walking for exercise, no cardiac limitations. Currently denies having any chest pain, shortness of breath, palpitations, edema or syncope.No recent hospitalizations or cardiac testing reported since last visit. Alvaro Blackmon MD [address] [place] [address],[address], [place], [address], [facility] [address] [facility] 09/05/2024 21:31:54
--- OUTSIDE RECORDS SUMMARY | 2025-01-10 15:24 | XMS_ITS | Encounter Summary ---
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 Gender Identity Male 07/09/2021 2:55 PM BED SPRING MAKER Sexual Orientation Straight 07/09/2021 2: 55 PM BED SPRING MAKER documented as of this encounter Plan of [...] COVID: Suspected 07/22/2024 07/22/2024 07/22/2024 3:50 PM BED SPRING MAKER COVID19 07/22/2024 07/22/2024 08/01/2024 3:05 AM BED SPRING MAKER documented as of this encounter Care Teams Top Inventory Control Executive Relationship Specialty Start Date End Date Shania Nelson MD PCP - General Family Practice 12/28/17 03/09/23 Link Hurley MD [address] [place] [address] DR KILPATRICK [address] [place] [phone] PCP - General Internal Medicine 03/10/23 documented as of this encounter
--- OUTSIDE RECORDS SUMMARY | 2025-01-10 15:24 | XMS_ITS ---
Author Organization [facility], [facility] Address [address] [place] [address] Dr. Salas [address] [place] [address] Care Team Providers Care Sport Internship Name Role Phone Violetteerwintaty Link Primary Care Provider Unavailab Brant [facility] [phone] Allergies Allergen (clinical drug ingredient) Drug/Non Drug Allergy documented on EMR Reaction Allergy Type Onset Date Status Ceftin Unknown Drug Allergy Active cefuroxime Cefuroxime Sodium Unknown Drug Allergy Active Medicinal cephalosporin and acting as antibacterial agent (FN) Cephalosporins stomach upset Drug Allergy 03/26/2023 active REASON FOR VISIT Annual Medications Medication SIG (Take, Route, Frequency, Duration) Notes Start Date End Date Status Singulair Active Montelukast Sodium A ctive Clopidogrel & Aspirin Active Lisinopril Active Rosuvastatin Calcium Active Ipratropium [place] HFA Active Dutasteride-Tamsulosin HCl Active Probiotic Active ALPRAZolam As needed Active Famotidine 20 MG TAKE 1 TABLET TWICE A DAY for 90 Active OTC/Vitamins Centrum Silver, CoQ10, Magnesium, Vitamin D3, Flonase Active Social History Tobacco Use: Social History Observation Description Date Details (start date - stop date) Former Smoker NA - NA Tobacco Use/Smoking Question Answer Notes Are you a former smoker How long has it been since you last smoked? > 10 years Encounters Encounter Location Date Provider Diagnosis [facility] [address] [place] [address] Dr. Salas [address] [place] [address] 06/07/2024 Brant Correa Plan Of Treatment Next Appt Details Provider Name:Brant burrell, 02/01/2025 10:20:00 AM, [address] [facility] , [address], [place], [address], Progress Notes * Oral AGOSTO DDOB: [birth year] (84 yo M)Acc No.[id number]:06/07/2024 Patient: Oral VELIZ Provider: Paddy Correa M.D. :1940 A ge:83 Y S ex:Male Date:06/07/2024 Address:[address] [place], [place] [id number] Pcp:Link Hurley Subjective: * Chief Complaints: * 1 . Annual. * ROS: G I Bleeding: Melena N o. H ematochezia N o. H ematemesis?No. A nemia N o. G I-Stomach: Nausea/Emesis N o. P ain N o. P UD N o.?Anorexia N o. G I-Esophageal: Dysphagia N o. O dynophagia N o. C hest Pain?No. G ER Sx Y es. G I-Liver/GB: Jaundice N o. H epatitis N o. G allstones N o. P ancreatitis N o. G I-Colon: Colitis/IBS N o. D iarrhea N o. C onstipation?No. H emorrhoids Y es. G eneral/Constitutional: Fever N o. C hills N o. W eight Loss N o.? S kin: Rash N o. P ruritus N o. I cterus N o. P hotosensitivity N o. E NT: Diplopia N o. V isual Loss N o. T innitus N o. V ertigo N o. D eafness Y es. P oor Dentition N o. H ematology: Easy Bruising N o. H emophilia N o. H ematologic Malignancy N o. L ymphadenopathy N o. H istory of Petechia N o. A nemia?No. C ardiovascular: Palpitations N o. S yncope N o. P ND N o.?LEA N o. O rthopnea N o. C hest Pain N o. R espiratory: Cough N o. S putum Production N o. H emoptysis?No. W heezing N o. T B N o. S OB N o. N eurologic: Stroke N o. S eizure Disorder N o. T remor N o. P aralysis N o. S yncope N o. G enitourinary: Dysuria N o. P olyuria N o. I ncontinence N o. R enal Failure N o. H ematuria N o. M usculoskeletal: Joint Pain N o. S welling N o. S tiffness N o. M uscle Weakness N o. M yalgia N o. E ndocrine: Thyroid Disease N o. D iabetes N o. P olyphagia?No. P olydipsia N o. P sychiatric: Delusions N o. H allucinations N o. S uicidal Ideations N o. A llergy/Immunology: Hives N o. C hronic Sinusitis N o. H istory of Anaphylaxis N o. * Medical History: G ERD, Hemorrhoids, Hiatal Hernia, Diverticulosis, Hypertension, Hypercholestemia, Benign Prostatic Hyperplasia, Myocardial Infarction, Chronic Sinusitis, Atrial Fibrillation, Hearing Loss, Heart Disease/Stents, Arthritis, Sleep Apnea, Coronary Artery Disease. * Surgical History: C olonoscopy:Hemorrhoids found on perianal exam.Diverticulosis in the sigmoid colon.Examined portion of ileum was normal.Non bleeding external and internal hemorrhoids.Examination was otherwise normal. 03/2019, Endoscopy:LA Grade C reflux esophagitis.Benign appearing esophageal stenosis.Small hiatal hernia.Few gastric polyps.Normal examined duodenum. 11/2016, Triple Hernia Repair 1990, Heart Stents x3 2021, Nasal Surgery 2004, Tonsillectomy , Cardiac Ablation , Eye . * Hospitalization/Major Diagno stic Procedure: M I 1999. * Family History: N on-Contributory. Denies family history of colon cancer and polyps. * Social History: T obacco Use: T obacco Use/Smoking A re you a f ormer smoker H ow long has it been since you last smoked??> 10 years Pack-Years: Quit 1984. D rugs/Alcohol: D o you Drink Alcohol?: No. Do you Smoke Marijuana?: No. * Medications: T aking Famotidine 20 MG Tablet TAKE 1 TABLET TWICE A DAY , Taking Probiotic , Taking ALPRAZolam , Notes to Pharmacist: As needed, Taking Dutasteride-Tamsulosin HCl , Taking Ipratropium [place] HFA , Taking Clopidogrel & Aspirin , Taking Singulair , Taking Montelukast Sodium , Taking Lisinopril , Taking Rosuvastatin Calcium , Taking OTC/Vitamins , Notes to Pharmacist: Centrum Silver, CoQ10, Magnesium, Vitamin D3, Flonase, Discontinued Pantoprazole Sodium 20 MG Tablet Delayed Release 1 tablet Orally Once a day , Medication List reviewed and reconciled with the patient * Allergies: C eftin, Cefuroxime Sodium, Cephalosporins: stomach upset - Allergy - Onset Date 03/26/2023. Objective: * Vitals: * Examination: P hysical Examination: GENERAL: A ppears stated age, in no apparent distress. SKIN: N o rash, ecchymoses, petechial, or telangiectasia.? HEENT: Normocephalic, EOMI, Nasal & buccal mucosa clear. NECK: Supple without masses., Normal Range of Motion, No jugular venous distention. LYMPH NODES: No cervical, supraclavicular, or axillary lymphadenopathy. CARDIAC: RRR without murmur, gallop, or rub. PULMONARY: Clear to auscultation and percussion bilaterally. ABDOMEN: B S positive, soft, non-tender, No masses, organomegaly, rebound, or ascites. EXTREMITIES: N o cyanosis, clubbing, or edema. NEUROLOGIC: A lert and oriented x3, No asterixis, Nonfocal examination. C QM Exceptions: Influenza Vaccine not administered: R palmer: M edical Reason Pneumococcal Vaccine not administered: R palmer: M edical Reason TD or Tdap vaccine not administered R palmer: M edical reason Zoster vaccine not administered R palmer: M edical reason Assessment: Plan: * Treatment: * Images: * Electronic signature of Mauricio Correa MD on 01/10/2025 at 03:24 PM CDT Sign off status: Pending * Provider: Paddy Correa M.D. Date: 08/07/2023 Generated for Daphne díaz/Bradford/Geetha on: 0 01/10/2025 03:24 PM CDT
--- OUTSIDE RECORDS SUMMARY | 2025-01-10 15:24 | XMS_ITS | Patient Health Record ---
Author Organization [facility] Address [address], [place] [address] Care Team Providers Care Staffing Executive Name Role Phone ViolettemisaelashlynLink Primary Care Provider Unavailab Murphy Taylor DPM [phone] REASON FOR REFERRAL No Information MEDICATIONS Medication SIG (Take, Route, Fr equency, Duration) Notes Start Date End Date Status metoprolol Active Livalo 1 MG 1 tablet Orally Once a day for 30 day(s) Active Ranitidine Active amlodipine Active Low-Dose Aspirin Act wilfredo traMADol HCl 50 MG 1 tablet as needed f or prn pain Orally every 8 hours for 7 days 05/29/2024 Active Vilma Active Trent-Phyl Active Singulair Active SOCIAL HISTORY Tobacco [...] past year? Monthly or less (1 point) PROBLEMS Problem Type ICD Code Onset Dates Problem Status W/U Status Risk SNOMED Code Notes Problem Primary osteoarthriti s, left shoulder (M19.012) Active confirmed Localized, prim rivas osteoarthritis of the shoulder region (208674493) Encounters Encounter Location Date Provider Diagnosis [facility] [address] [place] [address] 05/29/2024 Murphy Rammacher DPM Strain of right Achilles tendon, initial encounter S86.011A [facility] [address] [place] [address] 04/26/2024 Murphy Cruz DPM Strain of right Achilles tendon, initial encounter S86.011A [facility] [address] [facility] [address] 05/22/2024 Murphy Rammacher DPM [facility] [address] [place] [address] 05/23/2024 Murphy Rammacher DPM [facility] [address] [place] [address] 06/06/2024 Murphy Cruz DPM ASSESSMENTS Encounter Date Diagnosis Assessment Notes Treatment [...] for tramadol dispensed to the patient's pharmacy. 04/26/2024 Strain of right Achilles tendon, initial encounter (ICD-10 - S86.011A) Advised patient it is okay to go back into a regular shoe, may have some pain and swelling with return. Need to take it easy on the extremity for the next 2 to 3 weeks in a regular tennis shoe. After 2 to 3 weeks in a regular tennis shoe return back to full activity without any restriction. Advised patient that if he is feeling any weakness we can always send him for some physical therapy. He will not need A office appointment for that. I advised him on some home exercises to do. All questions answered. Follow-up as needed 05/29/2024 Other PLAN OF TREATMENT No Information Insurance Providers Payer Name Payer Address Payer Phone Subscriber Number Group Number Insured Name Patient Relationship to Insured Coverage Start Date Coverage End Date Aetna Medicare Advantage [address] [place] [phone] [id number] Oral Bernal Self - patient is the insured MEDICAL (GENERAL) HISTORY Medical History History ICD Code hypertension high cholesterol heart attack GERD urologic problems Surgical History Surgery Date(Month/Year) hernia repair sinus surgery
--- OUTSIDE RECORDS SUMMARY | 2025-01-10 15:24 | XMS_ITS | Continuity of Care Document ---
Author Organization [facility] Address [address] [address] [place] [address] Phone Care Team Providers Care Client Technical Professional Name Role Phone Ernesto Day MD, MD [...] PRE-SURG EYE MEASURES DOC'D Not medically necessary [facility] POSTOP FOLLOW-UP VISIT POSTOP FOLLOW-UP VISIT CATARACT SURG W/IOL, 1 STAGE DILATED FUNDUS EVAL DONE PRE-SURG EYE MEASURES DOC'D OFFICE/OUTPATIENT VISIT, EST OPHTHALMIC BIOMETRY OPHTHALMIC BIOMETRY SPECIAL EYE EXAM, SUBSEQUENT SPECIAL EYE EXAM, SUBSEQUENT Cataract Glasses Not medically necessary [facility] OFFICE/OUTPATIENT VISIT, EST VISUAL FUNCT STATUS ASSESS EYE EXAM, NEW PATIENT REFRACTION EYE EXAM, NEW PATIENT VISUAL FUNCT STATUS ASSESS REFRACTION Results Test Name Date and Time Measure Units Reference Range Abnormal Flag Status Commen ts Panel Description: [id number] Final Image Zeiss Result 1 Advance Directives Directive Yes / No Effective Date File Name No Information Encounters Encounter Description Practice Location Reason(s) For Visit Diagnoses Date Provider Providers Copied on Encounter OFFICE/OUTPA TIENT VISIT, EST [facility], [address], [id number], [place] tel:[phone] OPH CONSULT [facility] FBS OD (chief complaint)r etina (chief complaint) Dry eye syndrome of bilateral lacrimal glandsPresenc e of intraocular lensDiplopiaE piretinal membrane (ERM), bilateral 4 Barb Orozco. [address], [place], [place], [id number], [place]. tel:[phone] Referring Provider: Ernesto Day MD P, [address], [place], [address]. tel:[phone] OFFICE/OUTPA TIENT VISIT, EST [facility], [address] [place] [address], [id number], [place] tel:[phone] OPH CONSULT LEANNE HIGGINS irritation OD (chief complaint) Dry eye syndrome of bilateral lacrimal glandsPresenc e of intraocular lensDiplopia 3 Barb Orozco. [address], [place], [place], [id number], [place]. tel:[phone] Referring Provider: Ernesto Day MD P, [address], [place], [address]. tel:[phone] [facility], [address] [place] [address], [id number], tel:[phone] O[facility] CONSULT LEANNE HIGGINS tearing and burning (chief complaint)b lurry vision (chief complaint) Lens replaced by other meansDiplopia Vitreous degeneration of both eyesDry eye syndrome of bilateral lacrimal glands 2 Jack Li. [address], [address], [place], [place], [id number], [place]. tel:[phone] Referring Provider: Kalpana Nelson MD, [address] , [place], [address]. tel:[phone] OFFICE/OUTPA TIENT VISIT, EST [facility], [address] [place] [address], [id number], [place] tel:[phone] Oph Consult [facility] Office IOL check (chief complaint)D ry eyes (chief complaint) Vitreous degeneration of both eyesLens replaced by other meansDiplopia 6 Barb Orozco. [address], [place], [place], [id number], [place]. tel:[phone] Referring Provider: Ernesto Day MD P, [address], [place], [address]. tel:[phone] [facility], [address] [place] [address], [place], [place], [id number], [place] tel:[phone] [facility] No Information Oct 5 Garland Shepard. [address], [place], [place], [id number], [place]. tel:[phone] Referring Provider: Devyn Yu, [address], [place], [address]. tel:[phone] OFFICE/OUTPA TIENT VISIT, EST [facility], [address] [place] [address], [place], [place], [id number], [place] tel:[phone] [facility] LEANNE HIGGINS Yag evaluation (chief complaint)I OL check (chief complaint)D ry eyes (chief complaint) Lens replaced by other meansVitreous degeneration of both eyesAfter-cat aract obscuring vision, rightDry eye syndrome of bilateral lacrimal glands Apr- 5 Alfredo OD Amber. [address], [address], [place], [place], [id number], [place]. tel:[phone] Referring Provider: Amber Fuentes OD, [address], [place], [address]. tel:[phone] OFFICE/OUTPA TIENT VISIT, EST [facility], [address] [place] [address], [id number], [place] tel:[phone] [facility] LEANNE HIGGINS Vitreous degenerationL ens replaced by other means 3 Barb Orozco. [address], [address], [id number], [place]. tel:[phone] Referring Provider: Ernesto Yu, [address], [place], [address]. tel:[phone] [facility], [address] [place] [address], [id number], tel:[phone] [facility] [place] No Information 2 Barb Orozco. [address], [address], [place], [address], [place]. tel:[phone] Referring Provider: Ernesto Yu, [address] [place] [address], [address]. tel:[phone] [facility], [address] [place] [address], [id number], tel:[phone] [facility] CON[facility] LEANNE HIGGINS vision is improved OD (chief complaint) No Information 2 Barb Orozco. [address], [address] [place] [address], [id number], [place]. tel:[phone] Referring Provider: Ernesto Yu, [address] [place] [address], [address]. tel:[phone] [facility], [address] [place] [address], [id number], tel:[phone] OPH CONSULT LEANNE HIGGINS vision is improved OD (chief complaint) No Information 2 Barb Orozco. [address], [place], [place], [id number], [place]. tel:[phone] Referring Provider: Ernesto Yu, [address] [place] [address], [address]. tel:[phone] [facility], [address] [place] [address], [id number], tel:[phone] [facility] No Information 2 Barb Orozco. [address], [address], [place], [place], [id number], [place]. tel:[phone] Referring Provider: Ernesto Yu, [address], [place], [address]. tel:[phone] [facility], [address] [place] [address], [id number], tel:[phone] [facility] LE[facility] No Information 2 Barb Orozco. [address], [place], [place], [id number], [place]. tel:[phone] Referring Provider: Ernesto Yu, [address], [place], [address]. tel:[phone] [facility], [address] [place] [address], [id number], tel:[phone] OPH CONSULT LEANNE HIGGINS vision is improved OS (chief complaint) No Information 2 Barb Orozco. [address], [address], [id number], [place]. tel:[phone] Referring Provider: Ernesto Yu, [address], [place], [address]. tel:[phone] [facility], [address] [place] [address], [id number], tel:[phone] OPH CONSULT LEANNE HIGGINS no complaints OS (chief complaint) No Information 2 Brab Orozco. [address], [address], [place], [id number], [place]. tel:[phone] Referring Provider: Ernesto Yu, [address], [place], [address]. tel:[phone] [facility], [address] [place] [address], [id number], [place] tel:[phone] [facility] No Information 2 Barb Orozco. [address], [place], [place], [address], [place]. tel:[phone] Referring Provider: Ernesto Yu, [address], [place], [address]. tel:[phone] OFFICE/OUTPA TIENT VISIT, EST [facility], [address] [place] [address], [id number], [place] tel:[phone] OPH CONSULT LEANNE HIGGINS Senile nuclear sclerosisVitr eous degeneration 2 Barb Orozco. [address], [place], [place], [id number], [place]. tel:[phone] Referring Provider: Ernesto Yu, [address], [place], [address]. tel:[phone] OFFICE/OUTPA TIENT VISIT, EST [facility], [address] [place] [address], [place], [place], [id number], [place] tel:[phone] Oph Consult [facility] Office Myopia 2 Emmanuel Capellan. [address], [place], [place], [id number], [place]. tel:[phone] Referring Provider: Timi Benitez, [address], [place], [address]. tel:[phone] [facility], [address] [place] [address], [id number], [place] tel:[phone] OPH CONSULT LEANNE HIGGINS Senile nuclear sclerosis 1 Barb Orozco. [address], [place], [place], [address], [place]. tel:[phone] Family History Family Member Type Diagnosis Age At Onset Mother Problem (finding) glaucoma Problem No family histor y of Macular degeneration Payers Payer name Insurance type Covered constitution party ID Authoriza tisunil(s) Aetna Medicare CI [id number] Social History Type Description Quantity Date Captured [...] Reason For Visit From encounter dated '02/09/2024 09:20'. FBS OD (chief complaint). Description: The 83 [...] he went and seen Dr. Winters @ [facility] and he was told he had a [...] he went and seen Dr. Winters @ [facility] and he was told he had a [...] tinal membrane (ERM), bilateral Impression/Plan Related to Diplo olga Impression/Plan Related to Prese nce of intraocular lens Impression/Plan Related to Dry e ye syndrome [...] syndrome of bilateral lacrimal glands Impression/Plan - No evidence of retinal pathology. All signs and risks of retinal detachment and tears were discussed in detail. Patient instructed to call the office immediately if any symptoms noted. Educational materials provided:Flashers/floaters. Related to Vitreous degeneration of both eyes Follow up - RTO 1 year for comp exam Impression/Plan - Ne w glasses today with Prism for the first time. Related to Diplopia Impression/Plan - st able, s/p YAG PC OS Related to Lens replaced by other means Impression/Plan - No evidence of permanent changes to the cornea. Explained condition does not have a cure and will need artificial tears for maintenance. Related to Dry eye syndrome of bilateral lacrimal glands Impression/Plan - Di scussed dx in detail with pt today. Pt will schedule YAG PC OD today. Referred by DAYAMI Plummer-Dr. Holloway. Related to After-cataract obscuring vision, right Impression/Plan - No evidence of retinal pathology. All signs and risks of retinal detachment and tears were discussed in detail. Patient instructed to call the office immediately if any symptoms noted. Related to Vitreous degeneration of both eyes Impression/Plan - st able, s/p YAG PC OS Related to Lens replaced by other means Lens replaced by oth er means OU - Continue to monitor. 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 Discussed and reviewed treatment options for cataracts. Risks and benefits of surgical treatment were discussed and understood. Patient will consider surgical treatment. Discussed toric IOL option. Related to Cataract, Nuclear Sclerosis Cataract, Nuclear Sc lerosis, OU - mild - Discussed cataract diagnosis with the patient. No treatment is required at this time. New glasses Rx given today. Related to Cataract, Nuclear Sclerosis - 1 year follow up exam. Related to Cataract, Nuclear Sclerosis Assessments Type [...]
--- OUTSIDE RECORDS SUMMARY | 2025-01-10 15:25 | XMS_ITS ---
Author Organization [facility] Address [address] [address] Care Team Providers Care Landfill Gas Collection Operator Name Role Phone Xavi Link Primary Care Provider Unavailab Murphy Taylor DPM [phone] Encounters Encounter Location Date Provider Diagnosis [facility] [address] [address] 06/06/2024 Murphy Cruz DPM PLAN OF TREATMENT No Information
--- NOTE | 2025-01-11 15:38 | WPDPFTINT ---
PFT Procedure Performed PFT Procedure Performed Spirometry with Pre/Post Bronchodilator Plethysmography (Lung Vol) Diffusing Cap (DLCO) Flow Vol Loop PFT Interpretation This is a pulmonary function test with pre and post-bronchodilator spirometry, plethysmography and diffusing capacity. The test was performed and results interpreted in accordance with the 2019 and 2005 ATS/ERS Task Force guidelines respectively using the Global Lung Function Initiative-2012 reference equations. Patient demonstrated good effort and cooperation. Reproducibility criteria were met. The quality of the pre bronchodilator spirometry maneuver was Grade B and post bronchodilator spirometry maneuver was Grade B. Of note, patient has struggled with effort requirements of the testing. Findings: Spirometry: There is decreased maximal expiratory airflow at all lung volumes with concave expiratory flow tracing. The contour the inspiratory flow tracing is normal. The pre bronchodilator FVC is 3.00 L, 84% predicted. The pre bronchodilator FEV1 is 1.29 L, 49% predicted. The pre bronchodilator FEV1: FVC ratio is 43%. The post bronchodilator FVC is 3.02 L, representing a 1% increase. The post bronchodilator FEV1 is 1.09 L, representing a 15% decrease. The post bronchodilator FEV1: FVC ratio is 36%. Plethysmography: The total lung capacity is 4.71 L, 71% predicted. The functional residual capacity is 2.23 L, 62% predicted. The residual volume is 1.71 L, 65% predicted. Diffusing capacity: The diffusing capacity unadjusted for hemoglobin and carboxyhemoglobin is 17.7, 79% predicted. The diffusing capacity adjusted for alveolar volume is 4.07, 112% predicted. Impression: There is a combined obstructive and restrictive ventilatory abnormality. There are no guidelines to assign the severity of obstruction and restriction with a combined abnormality. In my opinion, given the moderately concave expiratory flow tracing, severely decreased FEV1: FVC ratio and mild restrictive abnormality I would state there is a moderately severe obstructive abnormality and a mild restrictive abnormality resulting in a severe decrease in the FEV1. There is no significant improvement after inhaling a single dose of albuterol. The diffusing capacity is normal. There are no prior studies for comparison
== END 2025-01-10 13:43 | disposition home or self-care (01) ==
PROVIDERS: Visit Provider Nurse Practitioner Family
DX: R94.2 Abnormal results of pulmonary function studies (principal); R06.09 Other forms of dyspnea
CPT/HCPCS: 94060; 94726; 94729

== ENCOUNTER 2025-01-22 11:52 | Outpatient (CLI) | payer MEDICARE, SELFPAY ==
--- NOTE | 2025-01-22 | ECG_ITS ---
Test Date: 2025-01-22 12:15:52 Measurements Intervals [place] Rate: 71 P: 89 IA: 218 QRS: -26 QRSD: 144 T: 110 QT: 409 QTc: 447 Interpretive Statements ELECTRONIC ATRIAL PACEMAKER WITH INHIBITION ATRIAL PREMATURE COMPLEXES LEFT BUNDLE BRANCH BLOCK ABNORMAL ECG No previous ECG available for comparison Electronically Signed On 01-22-2025 12:57:12 CDT by William Cason D.O.
--- OUTSIDE RECORDS SUMMARY | 2025-01-22 12:02 | XMS_ITS | Clinical Summary ---
Author Organization [facility] [address] Address [address] [place] [address] Care Team Providers Care Human Resources Benefits Manager Name Role Phone Link Hurley MD Primary Care Provider [phone]- [phone] Allergies Active Allergy Reactions Criticality Noted Date [...] 07/15/2023 Assessment & Plan (06/29/2024 11:27 AM LOG CARRIER OPERATOR): -Dual chamber pacemaker is functioning appropriately as programmed -Lead impedances, sensing, and thresholds are stable -No programming changes -Continue remote monitoring quarterly -Follow up in 1 year for device check Assessment & Plan (07/15/2023 2:29 PM LOG CARRIER OPERATOR): Dual chamber pacemaker is functioning appropriately as [...] 05/03/2023 Assessment & Plan (06/29/2024 12:01 PM LOG CARRIER OPERATOR): -Symptomatic sinus node dysfunction s/p dual chamber pacemaker 05/24/2023 -Appropriate device function, atrial paced 61%. Assessment & Plan (07/15/2023 2:30 PM LOG CARRIER OPERATOR): Symptomatic sinus node dysfunction s/p dual chamber [...] 05/15/2021 Assessment & Plan (06/29/2024 12:02 PM LOG CARRIER OPERATOR): -AVNRT s/p successful ablation in 2020, Dr [...] with stent to the mid LAD in [place], [place] Fatigue and chest pain have resolved post stent Bradycardia longstanding. Chronic LBBB. If symptoms return, may consider evaluation for chronotropic incompetence, but at this time he reports appropriate HR elevation with activity and no symptoms of near syncope or syncope S/P coronary artery stent placement 01/20/2017 High cholesterol 04/15/2012 History of [place] (myocardial infarction) 04/15/2012 Sinusitis, chronic 04/15/2012 Immunizations [...] Mother Pearbrendan Hypertension Mother Chris Other Mother Pearbrendan Valve Replaceme nt; Cause of : Valve Replacement Valvular heart disease Mother Pearle Heart disease Sister Magdalena Anesthesia problems Neg Hx Relation Name Status Comments Brother Jasen Father (Age 84) Mother Chris (Age 90) [...] on file Legal Sex Male 2:15 PM LOG CARRIER OPERATOR Gender Identity Male 07/09/2021 2:55 PM LOG CARRIER OPERATOR Sexual Orientation Straight 07/09/2021 2: 55 PM LOG CARRIER OPERATOR Obstetrics History Last Filed Vital Signs Vital Sign Reading Time Taken Comments Blood Pressure 138/72 07/22/2024 3:42 PM LOG CARRIER OPERATOR Pulse 59 07/22/2024 3:42 PM LOG CARRIER OPERATOR Temperature 37.2 C (98.9 F) 07/22/2024 3:42 PM LOG CARRIER OPERATOR Respiratory Rate 20 07/22/2024 3:42 PM LOG CARRIER OPERATOR Oxygen Saturation 96% 07/22/2024 3:42 PM LOG CARRIER OPERATOR Inhaled Oxygen Concentration - - Weight 89.8 kg (198 lb) 07/22/2024 3:42 PM LOG CARRIER OPERATOR Height 175.3 cm (5' 9) 06/29/2024 11:18 AM LOG CARRIER OPERATOR Body Mass Index 29.24 06/29/2024 11:18 AM LOG CARRIER OPERATOR Plan of Treatment Health Maintenance Due Date Last Done Comments Depression Screening 1940 Hepatitis B Screening 10/10/1958 Well Visit 65+ 2006 Covid-19 Vaccine (3 - 2023-2 5 season) 2024 09/18/2020, 08/23/2020 Fall Risk Assessment 05/25/2024 05/25/2023 Influenza Vaccine (Season Ended) 2025 05/24/2023, 04/25/2022, 06/12/2021, Additional history exists DTaP/Tdap/Td Vaccine (4 - Td or Tdap) 01/23/2029 01/23/2019, 11/26/2013, 11/26/2013 Pneumococcal vaccine 65+ Completed 05/22/2019, 06/26 Zoster Vaccine Completed 04/22/2020, 05/22/2019 Abdominal Aortic Aneurysm (A AA) Screen Completed 07/31/2021 Medical Devices Implanted Type Area Teacher'S Assistant Device Identifier Shelf Expiration Date Model / Serial / Lot Neu[employer] Medical [id number] System 6-12fr Mvp Venous Closure Vascade - [id number] Implanted:Qty : 1 on 07/02/2021 by Abner Ramirez MD at [facility] [employer] 03/12/2023 800-612C- 10U / / [id number] 30C [employer] Medical Inc [id number] System 6-12fr Mvp Venous Closure Vascade - [id number] Implanted:Qty : 1 on 07/02/2021 by Abner Ramirez MD at [facility] Collagen [employer] 03/12/2023 800-612C- 10U / / [id number] 30C [employer] Inc [id number] Device Closure Vascade Od5 Fr Femoral Artery - [id number] Implanted:Qty : 1 on 07/02/2021 by Abner Ramirez MD at [facility] Collagen [employer] Inc 04/14/2023 700-500DX -05U / / [id number] [employer] Inc [id number] Device Closure Vascade Od5 Fr Femoral Artery - [id number] Implanted:Qty : 1 on 07/02/2021 by Abner Ramirez MD at [facility] Collagen [employer] 04/14/2023 700-500DX -05U / / [id number] [employer] Tendril Sts 6fr 58cm Is-1 Connector Active Fixation Bipolar Soft 2087tc/58 - [id number] - [id number] Implanted:Qty : 1 on 05/24/2023 by Abner Ramirez MD at [facility] Lead Right: Ventricle [employer] 04/24/2026 2088TC/58 / [id number] / [id number] [employer] Tendril Sts 6fr 52cm Is-1 Connector Active Fixation Bipolar Soft 2087tc/52 - [id number] - [id number] Implanted:Qty : 1 on 05/24/2023 by Abner Ramirez MD at [facility] Lead N/A: Atria [employer] 03/25/2026 2088TC/52 / [id number] / [id number] [employer] Assurity Mri 98a98pt 2 Chamber Is-1 Connector Thk6mm Pacemaker [id number] - [id number] - [id number] Implanted:Qty : 1 on 05/24/2023 by Abner Ramirez MD at [facility] Pacemaker Left: Chest Wall [employer] 09/22/2024 [id number] / [id number] / [id number] Acs Multi Link- 0 Implanted: (Quantity not on file) N/A: Heart Acs Multi Link- 0 Implanted: (Quantity not on file) N/A: Heart Acs Multi Link- 0 Implanted: (Quantity not on file) N/A: Heart Acs Multi Link- 1 Implanted:04/2021 (Quantity not on file) N/A: Heart Procedures Procedure Name Priority Date/Time Associated Diagnosis Comments CT ABDOMEN W CONTRAST Schedule Routine, Read Routine (OP Routine) 07/31/2021 from Last 3 Months or Most Recently Relevant to Health Maintenance Results * CT Abdomen W Contrast (07/31/2021) Anatomical Region Laterality Modality Body N/A Computed Tomogra phy Historical Provider MD HUYNH CT PROCEDURES Final R esult from Last 3 Months or Most Recently Relevant to Health Maintenance Insurance [facility] MEDIC[facility] MEDIC[facility] AET[employer] MEDICARE Advance Directives For more information, please contact: [phone] * Full Code (Latest Code Status on File) Date Activated Date Inactivated Comments 05/24/2023 5:25 PM 05/25/2023 5:37 PM Care Teams Human Resources Benefits Manager Relationship Specialty Start Date End Date Link Hurley MD [address] [place] [address] [place] [address] PCP - General Internal Medicine 03/10/23
--- OUTSIDE RECORDS SUMMARY | 2025-01-22 12:02 | XMS_ITS | Encounter Summary ---
Author Organization [facility] Address [address] [place] [address] Phone Care Team Providers Care Grey Goods Tester Name Role Phone Shania Nelson MD Primary Care Provider Link Hurley MD Primary Care Provider +1- [phone] Encounter Details Date Type Department Care Team [...] on file Legal Sex Male 2:15 PM BLOOD COLLECTOR Gender Identity Male 07/09/2021 2:55 PM BLOOD COLLECTOR Sexual Orientation Straight 07/09/2021 2: 55 PM BLOOD COLLECTOR documented as of this encounter Plan of [...] COVID: Suspected 07/22/2024 07/22/2024 07/22/2024 3:50 PM BLOOD COLLECTOR COVID19 07/22/2024 07/22/2024 08/01/2024 3:05 AM BLOOD COLLECTOR documented as of this encounter Care Teams Grey Goods Tester Relationship Specialty Start Date End Date Shania Nelson MD PCP - General Family Practice 12/28/17 03/09/23 Link Hurley MD [address] [place] [address] [address] [place] [address] PCP - General Internal Medicine 03/10/23 documented as of this encounter
--- OUTSIDE RECORDS SUMMARY | 2025-01-22 12:02 | XMS_ITS | Referral Summary ---
Author Organization [facility] [address] Address [address] [place] [address] Care Team Providers Care Agricultural Consultant Name Role Phone Link Hurley MD Primary Care Provider [phone]- [phone] Allergies Active Allergy Reactions Criticality Noted Date [...] 07/15/2023 Assessment & Plan (06/29/2024 11:27 AM APPLICATION INFRASTRUCTURE ENGINEER): -Dual chamber pacemaker is functioning appropriately as programmed -Lead impedances, sensing, and thresholds are stable -No programming changes -Continue remote monitoring quarterly -Follow up in 1 year for device check Assessment & Plan (07/15/2023 2:29 PM APPLICATION INFRASTRUCTURE ENGINEER): Dual chamber pacemaker is functioning appropriately as [...] 05/03/2023 Assessment & Plan (06/29/2024 12:01 PM APPLICATION INFRASTRUCTURE ENGINEER): -Symptomatic sinus node dysfunction s/p dual chamber pacemaker 05/24/2023 -Appropriate device function, atrial paced 61%. Assessment & Plan (07/15/2023 2:30 PM APPLICATION INFRASTRUCTURE ENGINEER): Symptomatic sinus node dysfunction s/p dual chamber [...] 05/15/2021 Assessment & Plan (06/29/2024 12:02 PM APPLICATION INFRASTRUCTURE ENGINEER): -AVNRT s/p successful ablation in 2020, Dr [...] with stent to the mid LAD in [place], [place] Fatigue and chest pain have resolved post stent Bradycardia longstanding. Chronic LBBB. If symptoms return, may consider evaluation for chronotropic incompetence, but at this time he reports appropriate HR elevation with activity and no symptoms of near syncope or syncope S/P coronary artery stent placement 01/20/2017 High cholesterol 04/15/2012 History of [place] (myocardial infarction) 04/15/2012 Sinusitis, chronic 04/15/2012 Immunizations [...] on file Legal Sex Male 2:15 PM APPLICATION INFRASTRUCTURE ENGINEER Gender Identity Male 07/09/2021 2:55 PM APPLICATION INFRASTRUCTURE ENGINEER Sexual Orientation Straight 07/09/2021 2: 55 PM APPLICATION INFRASTRUCTURE ENGINEER Last Filed Vital Signs Vital Sign Reading Time Taken Comments Blood Pressure 138/72 07/22/2024 3:42 PM APPLICATION INFRASTRUCTURE ENGINEER Pulse 59 07/22/2024 3:42 PM APPLICATION INFRASTRUCTURE ENGINEER Temperature 37.2 C (98.9 F) 07/22/2024 3:42 PM APPLICATION INFRASTRUCTURE ENGINEER Respiratory Rate 20 07/22/2024 3:42 PM APPLICATION INFRASTRUCTURE ENGINEER Oxygen Saturation 96% 07/22/2024 3:42 PM APPLICATION INFRASTRUCTURE ENGINEER Inhaled Oxygen Concentration - - Weight 89.8 kg (198 lb) 07/22/2024 3:42 PM APPLICATION INFRASTRUCTURE ENGINEER Height 175.3 cm (5' 9) 06/29/2024 11:18 AM APPLICATION INFRASTRUCTURE ENGINEER Body Mass Index 29.24 06/29/2024 11:18 AM APPLICATION INFRASTRUCTURE ENGINEER Plan of Treatment Not on file Medical Devices Implanted Type Area Spray Gun Operator Device Identifier Shelf Expiration Date Model / Serial / Lot [employer]ot[employer] Inc [id number] System 6-12fr Mvp Venous Closure Vascade - [id number] Implanted:Qty : 1 on 07/02/2021 by Abner Ramirez MD at [facility] Collagen [employer] Inc 03/12/2023 800-612C- 10U / / [id number] 30C [employer] Inc [id number] System 6-12fr Mvp Venous Closure Vascade - [id number] Implanted:Qty : 1 on 07/02/2021 by Abner Ramirez MD at [facility] Collagen [employer] 03/12/2023 800-612C- 10U / / [id number] 30C [employer] Inc [id number] Device Closure Vascade Od5 Fr Femoral Artery - [id number] Implanted:Qty : 1 on 07/02/2021 by Abner Ramirez MD at [facility] Collagen [employer] 04/14/2023 700-500DX -05U / / [id number] [employer] Inc [id number] Device Closure Vascade Od5 Fr Femoral Artery - [id number] Implanted:Qty : 1 on 07/02/2021 by Abner Ramirez MD at [facility] Collagen [employer] 04/14/2023 700-500DX -05U / / [id number] [employer] Tendril Sts 6fr 58cm Is-1 Connector Active Fixation Bipolar Soft 2087tc/58 - [id number] - [id number] Implanted:Qty : 1 on 05/24/2023 by Abner Ramirez MD at [facility] Lead Right: Ventricle [employer] 04/24/2026 2088TC/58 / [id number] / [id number] [employer] Tendril Sts 6fr 52cm Is-1 Connector Active Fixation Bipolar Soft 8tc/52 - [id number] - [id number] Implanted:Qty : 1 on 05/24/2023 by Abner Ramirez MD at [facility] Lead N/A: Atria [employer] 03/25/2026 2088TC/52 / [id number] / [id number] [employer] Assurity Mri 22q23fj 2 Chamber Is-1 Connector Thk6mm Pacemaker [id number] - [id number] - [id number] Implanted:Qty : 1 on 05/24/2023 by Abner Ramirez MD at [facility] Pacemaker Left: Chest Wall [employer] 09/22/2024 [id number] / [id number] / [id number] Acs Multi Link- 0 Implanted: (Quantity not [...] Most Recently Relevant to Health Maintenance Insurance AET MEDICARE [facility] MEDICARE AETNA MEDICARE Advance Directives For more information, please contact: [phone] * Full Code (Latest Code Status on File) Date Activated Date Inactivated Comments 05/24/2023 5:25 PM 05/25/2023 5:37 PM Care Teams Agricultural Consultant Relationship Specialty Start Date End Date Link Hurley MD [address] [place] [address] [place] [address] PCP - General Internal Medicine 03/10/23
--- OUTSIDE RECORDS SUMMARY | 2025-01-22 12:02 | XMS_ITS | Clinical Summary ---
Author Organization [facility] Address [address] [facility] [facility] [place] [address] Phone Care Team Providers Care Professor/Nurse Anesthetist Name Role Phone hSania Nelson MD Primary Care Provider Allergies Active [...] be different from the original. Higinio Silvestre MD--Minister Helper ([facility] @ ) Polo Kingsley MD- [facility] ( [facility]) Problem Noted Date Diagnosed Date Supraventricular tachycardia 03/03/2023 PVC (premature ventricular contraction) 03/03/20 Dyspnea 03/03/2023 Fatigue 03/03/2023 Benign hypertension 12/23/2022 Mixed hyperlipidemia 12/23/2022 Atherosclerosis of [place] co ronary artery of [place] heart without angina pectoris 01/15/2022 Overview (01/15/2022): 1999 2 BMS to RCA, 1 BMS to Cx 12/02/20 [facility] cath- inf hypo, EF 55%. LAD-mild, dRCA 20-30%, CX- 90% at bifurc of large OM (and small LV br beyond)-stented OM and jailed distal Cx/LV br (unable to pass wire) 09/29/21 [place] cath: LM-mild-30%, LAD 50 mid, 50 mid-distal; Cx 30 mid 95 distal after large OM; OM2 stent patent; RCA prox, mid 40, 50%. mid-dist 90, 95%--stented 09/30/21 echo EF 55-60% Encounters Date Type Department Care Team Description 01/10/2025 External Device Data STL ABSTRACTION Provider, Abstract 01/10/2025 External Device Data STL ABSTRACTION Provider, Abstract 12/27/2024 11:00 AM CDT Office Visit [facility] - [facility] [address] [facility] [address] [place] [address] Polo Kingsley MD Atherosclerosis of [place] coronary artery of [place] heart without angina pectoris (Primary Dx); Benign hypertension; Mixed hyperlipidemia; PVC (premature ventricular contraction); Supraventricular tachycardia 11/28/2024 External Device Data STL ABSTRACTION Provider, Abstract 11/21/2024 External Device Data ST[facility] ABSTRACTION Provider, Abstract 10/24/2024 External Device Data STL ABSTRACTION Provider, Abstract from Last 3 Months Social History Tobacco Use Types Packs/Day Years Used Date Smoking Tobacco: Former Cigarettes Q uit: 07/26/1984 Smokeless Tobacco: Never Tobacco Cessation:Counseling Given: Not Answered Alcohol Use Standard Drinks/Week Comments Never 0 (1 standard drink = 0.6 oz pur e alcohol) Sex and Gender Information Value Date Recorded Sex Assigned at Not on file Legal Sex Male 8:10 AM TELEGRAPH EQUIPMENT MAINTAINER Gender Identity Not on file Sexual Orientation Not on file Last Filed Vital Signs Vital Sign Reading Time Taken Comments Blood Pressure 122/68 12/27/2024 10:58 AM CDT Pulse 65 12/27/2024 10:58 AM CDT Temperature 37 C (98.6 F) 01/23/2022 6:44 AM CDT Respiratory Rate 16 01/23/2022 12:00 PM CDT Oxygen Saturation 96% 12/27/2024 10:58 AM CDT Inhaled Oxygen Concentration - - Weight 93.1 kg (205 lb 3.2 oz) 12/27/2024 10:58 AM CDT Height 177.8 cm (5' 10) 12/27/2024 10:58 AM CDT Body Mass Index 29.44 12/27/2024 10:58 AM CDT Plan of Treatment Upcoming Encounters Date Type Department Care Team (Late st Contact Info) Description 07/11/2025 11:15 AM TELEGRAPH EQUIPMENT MAINTAINER Office Visit [facility] - [facility] [address] [facility] [address] [place] [address] Polo Kingsley MD [address] [place] [address] Health Maintenance Due Date Last Done Comments RSV VACCINE (60+ or ) (1 - 1-dose 75+ series) 2016 DTAP/TDAP/TD VACCINES (2 - Tdap) 11/27/2023 11/27/19 14 INFLUENZA VACCINE (#1) 2024 05/24/2023, 2020 COVID-19 Vaccine (3 - season) 2024, 08/23/2020 PNEUMOCOCCAL VACCINE 50+ YEARS Completed 05/22/2019 , 07/15/2015 ZOSTER VACCINE Completed 04/22/2020, 05/22/2019 Medical Devices Implanted Type Area Interactive Media Director Device Identifier Shelf Expiration Date Model / Serial / Lot Stent Synergy Xd 2.49y07ht Evrs Elut [id number] - [id number] Implanted:Qty : 1 on 01/23/2022 at [facility] Stent N/A: [employer] [place] 07/10/2023 [id number] / / [id number] Insurance AETNA PPO [facility] Advance Directives For more information, please contact: [phone] * Full Code (Latest Code Status on File) Date Activated Date Inactivated Comments 01/23/2022 6:55 AM 01/23/2022 3:23 PM Care Teams Professor/Nurse Anesthetist Relationship Specialty Start Date End Date Shania Nelson MD [address] [place] [address] PCP - General Family Practice 09/24/21
--- OUTSIDE RECORDS SUMMARY | 2025-01-22 12:02 | XMS_ITS | Continuity of Care Document ---
Author Organization [facility] Address [address] [facility] [address] [place] [address] Phone Care Team Providers Care Mercury Washer Name Role Phone Ernesto Day MD, MD [...] PRE-SURG EYE MEASURES DOC'D Not medically necessary [facility] [place]OP FOLLOW-UP VISIT POSTOP FOLLOW-UP VISIT CATARACT SURG W/IOL, 1 STAGE DILATED FUNDUS EVAL DONE PRE-SURG EYE MEASURES DOC'D OFFICE/OUTPATIENT VISIT, EST OPHTHALMIC BIOMETRY OPHTHALMIC BIOMETRY SPECIAL EYE EXAM, SUBSEQUENT SPECIAL EYE EXAM, SUBSEQUENT Cataract Glasses Not medically necessary [facility] [place]ICE/OUTPATIENT VISIT, EST VISUAL FUNCT STATUS ASSESS EYE EXAM, NEW PATIENT REFRACTION EYE EXAM, NEW PATIENT VISUAL FUNCT STATUS ASSESS REFRACTION Results Test Name Date and Time Measure Units Reference Range Abnormal Flag Status Commen ts Panel Description: [id number] Final Image Zeiss Result 1 Advance Directives Directive Yes / No Effective Date File Name No Information Encounters Encounter Description Practice Location Reason(s) For Visit Diagnoses Date Provider Providers Copied on Encounter OFFICE/OUTPA TIENT VISIT, EST [facility], [address], [id number], [place] tel:[phone] OPH CONSULT [facility] FBS OD (chief complaint)r etina (chief complaint) Dry eye syndrome of bilateral lacrimal glandsPresenc e of intraocular lensDiplopiaE piretinal membrane (ERM), bilateral 4 Barb Orozco. [address], [address], [place], [place], [id number], [place]. tel:[phone] Referring Provider: Ernesto Day MD P, [address], [place], [address]. tel:[phone] OFFICE/OUTPA TIENT VISIT, EST [facility], [address] [place] [address], [id number], [place] tel:[phone] OPH CONSULT LEANNE HIGGINS irritation OD (chief complaint) Dry eye syndrome of bilateral lacrimal glandsPresenc e of intraocular lensDiplopia 3 Barb Orozco. [address], [address], [place], [place], [id number], [place]. tel:[phone] Referring Provider: Ernesto Day MD P, [address], [place], [address]. tel:[phone] [facility], [address] [place] [address], [id number], tel:[phone] OPH CONSULT LEANNE HIGGINS tearing and burning (chief complaint)b lurry vision (chief complaint) Lens replaced by other meansDiplopia Vitreous degeneration of both eyesDry eye syndrome of bilateral lacrimal glands 2 Jack Li. [address], [address], [place], [place], [id number], [place]. tel:[phone] Referring Provider: Kalpana Nelson MD, [address] , [place], [address]. tel:[phone] OFFICE/OUTPA TIENT VISIT, EST [facility], [address] [place] [address], [id number], [place] tel:[phone] [facility] Office IOL check (chief complaint)D ry eyes (chief complaint) Vitreous degeneration of both eyesLens replaced by other meansDiplopia 6 Barb Orozco. [address], [address], [place], [place], [id number], [place]. tel:[phone] Referring Provider: Ernesto Day MD P, [address], [place], [address]. tel:[phone] [facility], [address] [place] [address], [place], [place], [id number], [place] tel:[phone] [facility] No Information Oct 5 Garland Shepard. [address], [address], [place], [place], [id number], [place]. tel:[phone] Referring Provider: Devyn Yu, [address], [place], [address]. tel:[phone] OFFICE/OUTPA TIENT VISIT, EST [facility], [address] [place] [address], [place], [place], [id number], [place] tel:[phone] [facility] LEANNE HIGGINS Yag evaluation (chief complaint)I OL check (chief complaint)D ry eyes (chief complaint) Lens replaced by other meansVitreous degeneration of both eyesAfter-cat aract obscuring vision, rightDry eye syndrome of bilateral lacrimal glands Apr- 5 Alfredo OD Amber. [address], [address], [place], [place], [id number], [place]. tel:[phone] Referring Provider: Amber Fuentes OD, [address], [place], [address]. tel:[phone] OFFICE/OUTPA TIENT VISIT, EST [facility], [address] [place] [address], [id number], [place] tel:[phone] OPH CONSULT LEANNE HIGGINS Vitreous degenerationL ens replaced by other means 3 Barb Orozco. [address], [address], [address], [place]. tel:[phone] Referring Provider: Ernesto Yu, [address], [address]. tel:[phone] [facility], [address] [place] [address], [id number], tel:[phone] [facility] [place] No Information 2 Barb Orozco. [address], [address], [id number], [place]. tel:[phone] Referring Provider: Ernesto Yu, [address] [place] [address], [address]. tel:[phone] [facility], [address] [place] [address], [id number], tel:[phone] [facility] LEANNE HIGGINS vision is improved OD (chief complaint) No Information 2 Barb Orozco. [address], [address] [place] [address], [id number], [place]. tel:[phone] Referring Provider: Ernesto Yu, [address] [place] [address], [address]. tel:[phone] [facility], [address] [place] [address], [id number], tel:[phone] OPH CONSULT LEANNE HIGGINS vision is improved OD (chief complaint) No Information 2 Barb Orozco. [address], [place], [place], [address], [place]. tel:[phone] Referring Provider: Ernesto Yu, [address] [place] [address], [address]. tel:[phone] [facility], [address] [place] [address], [id number], tel:[phone] [facility] No Information 2 Barb Orozco. [address], [place], [place], [address], [place]. tel:[phone] Referring Provider: Ernesto Yu, [address], [place], [address]. tel:[phone] [facility], [address] [place] [address], [id number], tel:[phone] [facility] LEAN[facility]IGGINS No Information 2 Barb Orozco. [address], [address], [place], [place], [address], [place]. tel:[phone] Referring Provider: Ernesto Yu, [address], [place], [address]. tel:[phone] [facility], [address] [place] [address], [id number], tel:[phone] OPH CONSULT LEANNE HIGGINS vision is improved OS (chief complaint) No Information 2 Barb Orozco. [address], [address], [id number], [place]. tel:[phone] Referring Provider: Ernesto Yu, [address], [place], [address]. tel:[phone] [facility], [address] [place] [address], [id number], tel:[phone] OPH [facility] LEANNE HIGGINS no complaints OS (chief complaint) No Information 2 Barb Orozco. [address], [address], [address], [place]. tel:[phone] Referring Provider: Ernesto Yu, [address], [place], [address]. tel:[phone] [facility], [address] [place] [address], [id number], [place] tel:[phone] [facility] No Information 2 Barb Orozco. [address], [place], [place], [address], [place]. tel:[phone] Referring Provider: Ernesto Yu, [address], [place], [address]. tel:[phone] OFFICE/OUTPA TIENT VISIT, EST [facility], [address] [place] [address], [id number], [place] tel:[phone] OPH CONSULT LEANNE HIGGINS Senile nuclear sclerosisVitr eous degeneration 2 Barb Orozco. [address], [address], [place], [place], [id number], [place]. tel:[phone] Referring Provider: Ernesto Yu, [address], [place], [address]. tel:[phone] OFFICE/OUTPA TIENT VISIT, EST [facility], [address] [place] [address], [place], [place], [id number], [place] tel:[phone] [facility] Office Myopia 2 Emmanuel Capellan. [address], [address], [place], [place], [id number], [place]. tel:[phone] Referring Provider: Timi Benitez, [address], [place], [address]. tel:[phone] [facility], [address] [place] [address], [id number], [place] tel:[phone] OPH [facility] LEANNE HIGGINS Senile nuclear sclerosis 1 Barb Orozco. [address], [place], [place], [address], [place]. tel:[phone] Family History Family Member Type Diagnosis Age At Onset Mother Problem (finding) glaucoma Problem No family histor y of Macular degeneration Payers Payer name Insurance type Covered republican ID Authoriza tisunil(s) [employer] Medicare CI [id number] Social History Type Description Quantity Date Captured [...] he went and seen [facility] [place] [facility] and he was told he had a [...] he went and seen Dr. Winters [place] [facility] and he was told he had a [...] of bilateral lacrimal glands Impression/Plan Related to Diplo olga Impression/Plan Related to Prese nce of intraocular lens Impression/Plan Related to Dry e ye syndrome of bilateral lacrimal glands Impression/Plan Related to Vitre ous degeneration of both eyes Impression/Plan Related to Dry e ye syndrome of bilateral lacrimal glands Impression/Plan Related to Lens replaced by other means Impression/Plan Related to Diplo olga Impression/Plan - No evidence of retinal pathology. 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
--- OUTSIDE RECORDS SUMMARY | 2025-01-22 12:02 | XMS_ITS | Encounter Summary ---
Author Organization [facility] Address [address] [facility] [place] [address] Care Team Providers Care Cigarette Lighter Repairer Name Role Phone Arthur Sumner MD Primary Care Provider [phone] Johnie Aaron MD Unavailable [phone] Encounter Details Date Type Department Care Team (Late st Contact Info) Description 03/04/2022 Lab Requisition [facility] [address] [facility], 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erm[facility] Lab Received: 03/04/2022 11:11 AM [...] specimen consists of a shave biopsy measuring [id number]. Jar 0. 2 3:55 PM CDT DERMATOPATHOLOGY [...] characteristic determined by the Dermatopathology Laboratory at [facility], directed by Dr. Xiomara Laughlin. These tests need not be, and therefore are not, approved by the [place] Food and Drug Administration. The tests are used for clinical purposes. Billing Codes Specimen Charges Stain Charges 55905 1 2 3:55 PM CDT DERMATOPATHOLOGY LABORATORY Embedded Images 2 3:55 PM CDT DERMATOPATHOLOGY LABORATORY Pathology/Cytolo gy TISSUE SPECIMEN FROM SKIN / Unknown 03/03/2022 3:33 AM CDT 03/04/2022 11:11 AM CDT Jairo Jauregui MD LAB - PATHOLOGY/CYTOLOGY ORD ERABLES Final Result DERMATOPATHOLOGY LABORATORY [facility] - Department of Dermatology [facility] [address] [place] [address], [address] [phone] documented in this encounter Visit Diagnoses Not on filedocumented in this encounter Care Teams Cigarette Lighter Repairer Relationship Specialty Start Date End Date Arthur Sumner MD [address] [place] [address] PCP - General Family Medicine 02/26/12 Johnie Aaron MD [address] [place] [address] Otolaryngology 04/15/12 documented as of this encounter
--- OUTSIDE RECORDS SUMMARY | 2025-01-22 12:02 | XMS_ITS | Clinical Summary ---
Author Organization [facility] Address [address] [facility] [place] [address] Care Team Providers Care Staff Anesthetist Name Role Phone Arthur Sumner MD Primary Care Provider [phone] Johnie Aaron MD Unavailable [phone] Source Comments [facility] Affiliates and Associated Physician Practices is amultiple site organization consisting of ambulatory clinics and hospital sitesin [place], [place], [place] and [place]. This disclosure is being madepursuant to the Care Everywhere program and may not contain all information available regarding this patient. 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
--- OUTSIDE RECORDS SUMMARY | 2025-01-22 12:03 | XMS_ITS | Data Portability ---
Author Organization [facility] Address [address] [place] [address] Care Team Providers Care Drag Out Worker Name Role Phone DEMETRI SETHI Primary Care Provider [phone] REYNA PRUETT Detail Sergeant CARI ANNA OTHER Assessment Encounter Date Assessment Date Assessment LastModified by Organization Details LastModified Time 11/18/2022 11/18/2022 Evaluation and assessment performed by Sandra MATHEW Not available 11/17/2022 16:22:09 12/03/2022 12/03/2022 Evaluation and assessment performed by Sandra MATHEW [email or web address] Not available 12/03/2022 08:45:33 09/08/2023 09/08/2023 Evaluation [...] recorded. 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 Patient TargetsNo targets recorded. Patient Instructions Encounter Date Encounter Id Patient Instructions Last Modified By Organization Details Last Modified Time 11/18/2022 [id number] supraventricular tachycardia: care instructions [email or web address] Not available 11/18/2022 14:04:32 12/03/2022 [id number] supraventricular tachycardia: care instructions [email or web address] Not available 12/03/2022 14:11:43 dizziness: care instructions [email or web address] Not available 12/03/2022 14:11:43 08/11/2023 [id number] supraventricular tachycardia: care instructions [email or web address] Not available 08/11/2023 11:39:08 dizziness: care instructions Not available 08/11/2023 11:39:08 09/08/2023 [id number] supraventricular tachycardia: care instructions [email or web address] Not available 09/08/2023 12:03:12 dizziness: care instructions [email or web address] Not available 09/08/2023 12:03:12 08/31/2024 [id number] supraventricular tachycardia: care instructions Not available 08/31/2024 11:55:37 dizziness: care instructions Not available 08/31/2024 11:55:37 Reason for Referral None Reported. Results Created Date Observation Date Name Description Value Unit Range Abnormal Flag Note LastModifiedBy Organization Detail LastModifiedTime 08/27/19 24 08/28/2023 LIPID PANEL , STAND LILIANA cholesterol, total 121 mg/dL <200 normal Not Available [facility] [address], [place], [address], 08/28/2023 03:43:04 08/27/19 24 08/28/2023 LIPID PANEL , STAND LILIANA HDL cholesterol 54 mg/dL > or = 40 normal Not Available [facility] [address], [place], [address], 08/28/2023 03:43:04 08/27/19 24 08/28/2023 LIPID PANEL , STAND LILIANA triglyceride s 76 mg/dL <150 normal Not Available [facility] [address], [place], [address], 08/28/2023 03:43:04 08/27/19 24 08/28/2023 LIPID PANEL [...] lated using the Angella n-Hop kins calcu latdony n, which is a valid ated novel metho d shalinii ding brett r accur acy than the Fried estuardo equat ion in the estim ation of LDL-C . Angella munoz SS et al. RAJIV. 2013; 310(1 9): 2061- 2068 (http ://ed ucati on.Qu Azeem moseleyCold Genesyss. com/f aq/FA Q164) Not Available [facility] [address], [place], [address], 08/28/2023 03:43:04 08/27/19 24 08/28/2023 LIPID PANEL , STAND LILIANA chol/HDLC ratio 2.2 (calc ) <5.0 normal Not Available [facility] [address], [place], [address], 08/28/2023 03:43:04 08/27/19 24 08/28/2023 LIPID PANEL , STAND LILIANA non HDL cholesterol 67 mg/dL _(deborah c) <130 normal For patie nts with diabe david plus 1 major ASCVD risk facto r, treat ing to a non-H DL-C goal of <100 mg/dL (LDL- C of <70 mg/dL ) is consi dered a thera peuti c optio n. Not Available [facility] [address], [place], [address], 08/28/2023 03:43:04 11/19/19 23 11/18/2022 elect rocar diogr am No observ ation record ed. [employer] [employer] In House Orders - DO Not Merge DO Not Delete [address], [place], [address], 11/18/2022 12:21:29 12/04/19 23 11/26/2022 cardi ac [...] Details Recorded Time Disorder of carotid artery 186760138 Active Myra david null, [place] [facility] 2 12:43:17 Essential hypertension 36923175 Active Myra david null, [facility] [employer] [facility] 2 12:43:44 Dyslipidemia 694436234 Active Myra david null, [place] [facility] 2 12:43:54 Fatigue 66050222 Active Myra david null, [facility] 2 12:44:14 Chest pain 22185481 Active 2021 Colleen Alexa null, [facility] 2 08:20:42 Coronary arterioscleros is 65453710 Active 2021 Colleen Alexa null, [facility] 2 08:20:50 Stented coronary artery 018931137 Active 2021 Colleen Alexa null, [facility] 2 08:20:56 Supraventricul ar tachycardia 7140102 Active 2021 Colleen Alexa null, [facility] 2 08:21:21 Paroxysmal supraventricul ar tachycardia 66231480 Active 2022 Berhane Olvera null, [facility] 3 16:22:11 Dizziness 271451192 Active 2023 Berhane Olvera null, [facility] 4 14:33:25 Problem Notes None recorded. Procedures Surgical History Date Name Laterality Status Provider Name and Address Organization Details Recorded Time 11/27/19 23 Cardiac Catheterization completed RICK Gillis [facility] [address], [place], [address], [facility] 12/03/2022 12:35:55 09/30/19 22 Cardiac Catheterization completed RICK Gillis [facility] [address], [place], [address], [facility] 2021 10:19:34 11/24/19 21 [facility] 2021 08:28:56 07/26/19 00 Cardiac Catheterization completed Colleen Alexa [facility] 2021 08:28:52 Cardiac [facility]ation [facility] 2021 08:22:16 Imaging Results None recorded. Procedure Notes None recorded. Medical Equipment None Reported. Allergies Allergen ID Allergen Name Allergen Category Reaction Reaction Severity Criticality Documentation Date Start Date Code Code System Note Provider Name and Address Organization Details Recorded Time 03403 Ceftin medicatio n Not available Not available Not available 10/08/2021 30205 6 RxNorm Myra Gopi wiggins, [place] - [facility] [employer] [facility] 2 12:41:59 Medications Name Sig [...] bromide 21 mcg (0.03 %) nasal spray [place] 2 sprays twice a day by intranasa [...] azelastine 205.5 mcg (0.15 %) nasal spray [place] 1 spray twice a day by intranasa [...] Not Available No t Available Lacto no.37-B.ani valente,francine m QD active Not Available Not Available Not Available Vitals Date Recorded Body height Body mass index (BMI) Body weight Heart rate Oxygen saturation Oxygen saturation in Arterial blood by Pulse oximetry Systolic blood pressure Diastolic blood pressure Provider Name and Address Organization Details Last Updated DateTime 4 175.26 cm 27.7 kg/m2 88839.2 1 g 76 /min 96 % 96 % 138 mm[Hg] 85 mm[Hg] Berhane Olvera [facility] [employer] [facility] 4 11:05:28 Date Recorded Body height Body mass index (BMI) Body weight Heart rate Oxygen saturation Oxygen saturation in Arterial blood by Pulse oximetry Respiratory rate Systolic blood pressure Diastolic blood pressure Provider Name and Address Organization Details Last Updated DateTime 5 175.26 cm 28.9 kg/m2 24369.3 9 g 66 /min 96 % 96 % 18 /min 132 mm[Hg] 70 mm[Hg] Joy Smith [facility] [employer] [facility] 5 11:35:37 Date Recorded Body height Provider Name an d Address Organization Details Last Updated DateTime 09/08/2023 175.26 cm Pilar Prieto [facility] 09/08/2023 11:43:21 Date Recorded Body height Body mass index (BMI) Body weight Heart rate Oxygen saturation Oxygen saturation in Arterial blood by Pulse oximetry Respiratory rate Systolic blood pressure Diastolic blood pressure Provider Name and Address Organization Details Last Updated DateTime 3 175.26 cm 27.2 kg/m2 98548 g 52 /min 98 % 98 % 16 /min 120 mm[Hg] 60 mm[Hg] Berhane Bowers [facility] 3 11:11:17 Date Recorded Body height Body mass index (BMI) Body weight Respiratory rate Oxygen saturation Oxygen saturation in Arterial blood by Pulse oximetry Heart rate Systolic blood pressure Diastolic blood pressure Provider Name and Address Organization Details Last Updated DateTime 3 175.26 cm 26.6 kg/m2 40291.6 3 g 17 /min 97 % 97 % 58 /min 120 mm[Hg] 72 mm[Hg] Pilar Prieto [facility] 3 13:48:04 Social History Question Answer Notes LastModified by [employer] ion Details LastModified Time Tobacco Smoking Status Former Smoker Cally wiggins, [facility] 2021 09:36:27 Do You Have An Advance Directive? Yes [email or web address] Information not available 2021 Is Blood Transfusion Acceptable In An Emergency? Yes [email or web address] Information not available 2021 What Is Your Level Of Caffeine Consumption? Moderate 1 Cup Daily. 12oz. [email or web address] Information not available 11/18/2022 What Is Your Code Status? Full Code Information not available 2021 In The 14 Days Before Symptom Onset, Have You Had Close Contact With A Laboratory-confir med COVID-19 While That Case Was Ill? No [email or web address] Information not available 2021 In The 14 Days Before Symptom Onset, Have You Had Close Contact With A Person Who Is Under Investigation For COVID-19 While That Person Was Ill? No Information not available 2021 Have You Been To An Area Known To Be High Risk For COVID-19? No [email or web address] Information not available 2021 What Type Of Diet Are You Following? REGULAR [email or web address] Information not available 2021 Do You Have A Directive To Physicians? Yes Information not available 2021 How Many Times Per Week Do You Exercise? 1-2 Times Per Week Walking Some [email or web address] Information not available 2021 When Did You Quit Smoking? 16+yearssinc elastcigaret te 1980s [email or web address] Information not available 2021 Do You Have A Medical Power Of Divorce Attorney? No [email or web address] Information not available 2021 What Was The Date Of Your Most Recent Tobacco Screening? 08/31/2024 [email or web address] Information not available 08/31/2024 Do You Have An Out Of Hospital DNR? No [email or web address] Information not available 2021 What Is Your Relationship Status? [email or web address] Information not available 2021 At What Age Did You Start Smoking Tobacco? 19 [email or web address] Information not available 2021 Do You Have Any Dietary Restrictions? No Information not available 2021 Sex: Male Functional Status Question Answer Note LastModified by Organizat ion Details LastModified Time Do you use any illicit or recreational drugs? No [email or web address] Information not available 2021 Do you or have you ever used any other forms of tobacco or nicotine? No [email or web address] Information not available 2021 What is your level of alcohol consumption? None [email or web address] Information not available 11/18/2022 Are you currently employed? 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 None [email or web address] Information not available 2021 Mental Status None recorded. Family History Relationship Description Onset Age of this Age Resolved Age Notes LastModified by Organization Details LastModified Time Unspecified Relation Myocardial infarction [email or web address] Not available 09/23 12:50:31 Medical History Condition Response Coronary Artery Disease GERD Y Arrhythmia Chest X-Ray Y Echocardiograms Y Cardiac Cath Y Dyslipidemia Y Hypertension Y Immunizations Vaccine Type Date Status Note Provider Nam e and Address Organization Details Recorded Time Influenza, split virus, quadrivalent, preservative completed Cally wiggins, [place] - [employer] 2021 09:36:59 Past Encounters Encounter ID Performer Location Encounter Start Date Encounter Closed Date Diagnosis/Indication Diagnosis SNOMED-CT Code Diagnosis ICD10 Code Diagnosis Note [id number] RICK Gillis [facility] [address],[facility] [address] [place] [address] 2021 09:15:14 2021 10:42:26 Coronary arteriosclerosis 25654073 I25.10 - [place] with 2 bare-metal stents to the RCA [...] LDL <70 mg/dL Stented co ronary artery 453143206 Z95.5 see above notes Essential hypertension 56996583 I10 BP in good controlcon tinue lisinopril -needs periodic BP montioring Dyslipidemia 338224429 E 78.5 [id number] Alvaro Blackmon MD [facility] [address] [address] 11/10/2021 11:07:09 11/11/2021 13:23:19 Coronary arteriosclerosis 37533724 I25.10 November 102Corona ry artery disease: The patient feels better, without significan t chest pain or dyspnea over the past several weeks. He is compliant with his dual antiplatel et therapy and high intensity statin. He is about to start cardiac rehabilita tion in the next several days.[place] of [place]. - return to the office in July 2022. - [place] with 2 bare-metal stents to the RCA [...] LDL <70 mg/dL Stented co ronary artery 232751425 Z95.5 see above notes Essential hypertension 34311114 I10 November 102Blood pressure is well controlled . Continue lisinopril . BP in good controlcon tinue lisinopril -needs periodic BP montioring Dyslipidemia 785482598 E 78.5 November 102Contin ue rosuvastat in - Will consider increasing the dose during the next visit. [id number] RICK Gillis [facility] [address] [facility] [place] [address] 08/12/2022 11:08:35 08/12/2022 11:47:13 Coronary arteriosclerosis 18205225 I25.10 August 12, 2022:Subse quent PCI of mid LAD January of 2022; after which symptoms did not improve, although he does not report having chest pain any longer, which he was reporting to me in October of 2021.Will request records from [facility] in [place], [place] angina, fatigue symptoms improved-n eeds continued [...] to the office in July 2022. - [place] with 2 bare-metal stents to the RCA [...] Xience Skypoint 3.0 mm x 15 mm)In [place] he did undergo subsequent PCI to the-refer to cardiac rehab-cont inue ASA/clopid ogrel; did not tolerate Brilinta due to side effect of dyspnea.-t arget LDL <70 mg/dL Essential hypertension 49547503 I10 August 12, 2022:As far as he knows, blood pressure has been in good range.Apri l lood pressure is well controlled . Continue lisinopril . BP in good controlcon tinue lisinopril -needs periodic BP montioring Dyslipidemia 259962452 E 78.5 August 12, 2022He does not recall last time he had lab work done; will request records as noted above; will review and let him know if we need any new labs prior to next visit. November 10ontin ue rosuvastat in - Will consider increasing the dose during the next visit. Stented co ronary artery 148578833 Z95.5 see above notes Paroxysmal supraventricular tachycardia 99608525 I47.1 ablation done at [facility] in [place], [place] in 2021-no recurrent palpitatio ns; had follow up in the fall of 2021 (history from patient is vague)-had ECG at that time; will need to request records. [id number] Alvaro Blackmon MD [facility] [address] [facility] [place] [address] 11/18/2022 11:00:52 11/18/2022 15:09:11 Coronary arteriosclerosis 14310504 I25.10 November 18, 2022The patient has been [...] in October of 2021.Will request records from [facility] in [place], [place] angina, fatigue symptoms improved-n eeds continued [...] to the office in July 2022. - [place] with 2 bare-metal stents to the RCA [...] Xience Skypoint 3.0 mm x 15 mm)In [place] he did undergo subsequent PCI to the-refer to cardiac rehab-cont inue ASA/clopid ogrel; did not tolerate Brilinta due to side effect of dyspnea.-t arget LDL <70 mg/dL Essential hypertension 58332333 I10 November 18, 2022 hypertensi on: Blood pressure appears to be relatively well controlled at this time. Continue lisinopril at the current dose. Dyslipidemia 473691297 E 78.5 November 18, 2022 dyslipidem ia: Patient has a history of coronary artery disease and elevated lipids. As mentioned previously , I recommend that we consider increasing the rosuvastat in to 20 mg p.o. nightly. Stented co ronary artery 228603376 Z95.5 see above notes Paroxysmal supraventricular tachycardia 50689502 I47.1 ablation done at [facility] in [place], [place] in 2021-no recurrent palpitatio ns; had follow up in the fall of 2021 (history from patient is vague)-had ECG at that time; will need to request records. [id number] RICK Gillis [facility] [address] [place] [address] 12/03/2022 13:35:09 12/03/2022 14:15:46 Coronary arteriosclerosis 78618339 I25.10 November,s/p LEANNE to mid LADhe continues [...] in October of 2021.Will request records from [facility] in [place], [facility] angina, fatigue symptoms improved-n eeds continued and [...] to the office in July 2022. - [place] with 2 bare-metal stents to the RCA [...] Xience Skypoint 3.0 mm x 15 mm)In [place] he did undergo subsequent PCI to the-refer to cardiac rehab-cont inue ASA/clopid ogrel; did not tolerate Brilinta due to side effect of dyspnea.-t arget LDL <70 mg/dL Essential hypertension 81180440 I10 November 18, 2022 hypertensi on: Blood pressure appears to be relatively well controlled at this time. Continue lisinopril at the current dose. Dyslipidemia 732292790 E 78.5 November 18, 2022 dyslipidem ia: Patient has a history of coronary artery disease and elevated lipids. As mentioned previously , I recommend that we consider increasing the rosuvastat in to 20 mg p.o. nightly. Stented co ronary artery 411636091 Z95.5 see above notes Paroxysmal supraventricular tachycardia 53812596 I47.1 ablation done at [facility] in [place], [place] in 2021-no recurrent palpitatio ns; had follow up in the fall of 2021 (history from patient is vague)-had ECG at that time; will need to request records. Dizziness 084370883 R42 will have him wear event monitor to see if he has issues with bradycardi a/high degree AVB Fatigue 70729090 R53.83 [id number] Alvaro Blackmon MD [facility] [address] [place] [address],[facility] [address] [place] [address] 08/11/2023 11:01:04 08/12/2023 12:36:23 Coronary arteriosclerosis 29508971 I25.10 August 11, 2023No significan t plaints [...] in October of 2021.Will request records from [facility] in [place], [place] angina, fatigue symptoms improved-n eeds continued [...] to the office in July 2022. - [place] with 2 bare-metal stents to the RCA [...] Xience Skypoint 3.0 mm x 15 mm)In [place] he did undergo subsequent PCI to the-refer to cardiac rehab-cont inue ASA/clopid ogrel; did not tolerate Brilinta due to side effect of dyspnea.-t arget LDL <70 mg/dL Essential hypertension 46653181 I10 August 11, 2023The patient's blood pressure [...] Continue lisinopril at the current dose. Dyslipidemia 025721116 E 78.5 August 11, 2023 dyslipidem ia: Patient has a history of coronary artery disease and elevated lipids.As mentioned previously , we will need to check his current lipid levels and adjust the medication s accordingl y. Stented co ronary artery 430143903 Z95.5 see above notes Paroxysmal supraventricular tachycardia 40678468 I47.10 ablation done at [facility] in [place], [place] in 2021-no recurrent palpitatio ns; had follow up in the fall of 2021 (history from patient is vague)-had ECG at that time; will need to request records. Dizziness 774454462 R42 will have him wear event monitor to see if he has issues with bradycardi a/high degree AVB Fatigue 50085494 R53.83 [id number] [facility] [address] [place] [address] 09/08/2023 11:43:08 09/08/2023 12:04:46 Coronary arteriosclerosis 03525997 I25.10 09/08/2023: Lipid panel 08/27/2023: TC 121, [...] in October of 2021.Will request records from [facility] in [place], [place] angina, fatigue symptoms improved-n eeds continued [...] to the office in July 2022. - [place] with 2 bare-metal stents to the RCA [...] Xience Skypoint 3.0 mm x 15 mm)In [place] he did undergo subsequent PCI to the-refer to cardiac rehab-cont inue ASA/clopid ogrel; did not tolerate Brilinta due to side effect of dyspnea.-t arget LDL <70 mg/dL Essential hypertension 01721258 I10 09/09/2023: Reports adequate blood pressure control [...] Continue lisinopril at the current dose. Dyslipidemia 847495337 E 78.5 August 11, 2023 dyslipidem ia: Patient has a history of coronary artery disease and elevated lipids.As mentioned previously , we will need to check his current lipid levels and adjust the medication s accordingl y. Stented co ronary artery 474115565 Z95.5 see above notes Paroxysmal supraventricular tachycardia 34102641 I47.10 ablation done at [facility] in [place], [place] in 2021-no recurrent palpitatio ns; had follow up in the fall of 2021 (history from patient is vague)-had ECG at that time; will need to request records. Dizziness 895783938 R42 [place] EP placed PPM Dual Chamber; uncertain what type and I do not see in notes from Dr. Stern of [facility] 99578449 R53.83 improved [id number] Cipriano Stroy PA-C [facility] [address] [place] [address] 08/31/2024 11:21:40 09/01/2024 10:27:02 Coronary arteriosclerosis 06043209 I25.10 08/31/2024:H istory of coronary stenting/a ngioplasty [...] to 20 mg p.o. nightly. Essential hypertension 60739297 I10 08/31/2024:B P acceptable in office today [...] Continue lisinopril at the current dose. Dyslipidemia 804140388 E 78.5 08/31/2024:L DL well controlled Continue statin therapy August 11, 2023 dyslipidem ia: Patient has a history of coronary artery disease and elevated lipids.As mentioned previously , we will need to check his current lipid levels and adjust the medication s accordingl y. Stented co ronary artery 882069652 Z95.5 see above notes Paroxysmal supraventricular tachycardia 75168092 I47.10 ablation done at [facility] in [place], [place] in 2021 Dizziness 361716829 R42 [place] EP placed PPM Dual Chamber; uncertain what type and I do not see in notes from Dr. Stern of [facility] Fatigue 71821801 R53.83 improved Sick sinus syndrome 3608 3008 [...] Name 08/27/2024 2 *SELF PAY* Oral Bernal [id number] A Oral Zambrano Bernal 08/27/2024 1 [place] Oral Bernal [id number] Oral Bernal 08/28/2024 1 [employer] (PPO) [id number] Oral Bernal [id number] Oral Bernal 08/27/2024 1 [facility] (MEDICARE REPLACEMENT/A DVANTAGE - PPO) [id number] Oral Bernal [id number] Oral Bernal Notes Date Note Type Note Provider Name and Address Organization Details Recorded Time 11/18/2022 text/html Mr. Bernal presjudson ro today for a routine 4 month follow up consult. 'Needs ECG. Following with [facility] processing rep.Reports still having some fatigue following cardiac catheterization, [...] last visit. Alvaro Blackmon MD [address] [facility],[address], [place], [address], [facility] [employer], [facility] 11/18/2022 14:04:52 12/03/2022 text/html Mr. [...] reported since last visit. RICK Gillis [address] [place] [address],[address], [place], [address], [facility] to[facility] 12/03/2022 14:14:14 08/11/2023 text/html Mr. Gabe pollard [...] since last visit. Alvaro Blackmon MD [address] [facility],[address], [place], [address], [employer] OK to-BBB 08/11/2023 11:40:06 09/08/2023 text/html Mr. Bernal gives consent to discuss recent labs.Compliant with DAPT.States feeling well overall, no cardiac complaints at the moment.Stays active by walking, no cardiac limitations. Currently denies having any chest pain, shortness of breath, palpitations, edema or syncope.No recent hospitalizations or cardiac testing reported since last visit. Alvaro Blackmon MD [address] [facility] [address], [place], [address], [employer] OK to-BBB 09/08/2023 17:11:26 08/31/2024 text/html Mr. Gabe pollard [...] since last visit. Alvaro Blackmon MD [address] [place] [address],[address], [place], [address], [facility], [facility] 09/05/2024 21:31:54
== END 2025-01-22 11:53 | disposition home or self-care (01) ==
PROVIDERS: Visit Provider Internal Medicine Pulmonary Disease
DX: R94.31 Abnormal electrocardiogram [ECG] [EKG] (principal); Z95.0 Presence of cardiac pacemaker
CPT/HCPCS: 93005

== ENCOUNTER 2025-02-06 15:38 | Outpatient (CLI) | payer MEDICARE, SELFPAY ==
--- NOTE | ~2025-02-06 | XR_ITS ---
XR chest 2V 02/06/2025 16:09 Indication: Shortness of breath. Pacemaker placement in 2023. Procedure: PA and lateral views of the chest Comparison: Comparison to multiple prior studies sequentially, with oldest reviewed study dated 04/15. Findings: Heart size normal. Elevated right diaphragm. Pacemaker leads in expected position. No focal air space disease, pulmonary edema, pleural effusion or suspected pneumothorax. Impression: 1: No acute cardiopulmonary disease. Reviewed, dictated and finalized at location B. Impression: 1: No acute cardiopulmonary disease.
--- OUTSIDE RECORDS SUMMARY | 2025-02-06 15:43 | XMS_ITS | Referral Summary ---
Author Organization [facility] [address] Address [address] [place] [address] Care Team Providers Care Board Of Education Secretary Name Role Phone Link Hurley MD Primary Care Provider [phone] Allergies Active Allergy Reactions Criticality Noted Date [...] 07/15/2023 Assessment & Plan (06/29/2024 11:27 AM LATEX DIPPER): -Dual chamber pacemaker is functioning appropriately as programmed -Lead impedances, sensing, and thresholds are stable -No programming changes -Continue remote monitoring quarterly -Follow up in 1 year for device check Assessment & Plan (07/15/2023 2:29 PM LATEX DIPPER): Dual chamber pacemaker is functioning appropriately as [...] 05/03/2023 Assessment & Plan (06/29/2024 12:01 PM LATEX DIPPER): -Symptomatic sinus node dysfunction s/p dual chamber pacemaker 05/24/2023 -Appropriate device function, atrial paced 61%. Assessment & Plan (07/15/2023 2:30 PM LATEX DIPPER): Symptomatic sinus node dysfunction s/p dual chamber [...] 05/15/2021 Assessment & Plan (06/29/2024 12:02 PM LATEX DIPPER): -AVNRT s/p successful ablation in 2020, Dr [...] with stent to the mid LAD in [place], [place] Fatigue and chest pain have resolved post stent Bradycardia longstanding. Chronic LBBB. If symptoms return, may consider evaluation for chronotropic incompetence, but at this time he reports appropriate HR elevation with activity and no symptoms of near syncope or syncope S/P coronary artery stent placement 01/20/2017 High cholesterol 04/15/2012 History of [place] (myocardial infarction) 04/15/2012 Sinusitis, chronic 04/15/2012 Immunizations [...] on file Legal Sex Male 2:15 PM LATEX DIPPER Gender Identity Male 07/09/2021 2:55 PM LATEX DIPPER Sexual Orientation Straight 07/09/2021 2: 55 PM LATEX DIPPER Last Filed Vital Signs Vital Sign Reading Time Taken Comments Blood Pressure 138/72 07/22/2024 3:42 PM LATEX DIPPER Pulse 59 07/22/2024 3:42 PM LATEX DIPPER Temperature 37.2 C (98.9 F) 07/22/2024 3:42 PM LATEX DIPPER Respiratory Rate 20 07/22/2024 3:42 PM LATEX DIPPER Oxygen Saturation 96% 07/22/2024 3:42 PM LATEX DIPPER Inhaled Oxygen Concentration - - Weight 89.8 kg (198 lb) 07/22/2024 3:42 PM LATEX DIPPER Height 175.3 cm (5' 9) 06/29/2024 11:18 AM LATEX DIPPER Body Mass Index 29.24 06/29/2024 11:18 AM LATEX DIPPER Plan of Treatment Not on file Medical Devices Implanted Type Area Aviation Neuropsychologist Device Identifier Shelf Expiration Date Model / Serial / Lot [employer] [id number] System 6-12fr Mvp Venous Closure Vascade - [id number] Implanted:Qty : 1 on 07/02/2021 by Abner Ramirez MD at [facility] Collagen [employer] 03/12/2023 [id number] [id number] / / [id number] 30C [employer] [id number] System 6-12fr Mvp Venous Closure Vascade - [id number] Implanted:Qty : 1 on 07/02/2021 by Abner Ramirez MD at [facility] [employer] 03/12/2023 800-612C- 10U / / [id number] 30C [employer] [id number] Device Closure Vascade Od5 Fr Femoral Artery - [id number] Implanted:Qty : 1 on 07/02/2021 by Abner Ramirez MD at [facility] [employer] 04/14/2023 700-500DX -[id number] / / [id number] [employer] [id number] Device Closure Vascade Od5 Fr Femoral Artery - [id number] Implanted:Qty : 1 on 07/02/2021 by Abner Ramirez MD at [facility] [employer] 04/14/2023 [id number] -[id number] / / [id number] [employer] Tendril Sts 6fr 58cm Is-1 Connector Active Fixation Bipolar Soft 2087tc/58 - [id number] - [id number] Implanted:Qty : 1 on 05/24/2023 by Abner Ramirez MD at [facility] Lead Right: Ventricle [employer] 04/24/2026 2088TC/58 / [id number] / [id number] [employer] Tendril Sts 6fr 52cm Is-1 Connector Active Fixation Bipolar Soft 8tc/52 - [id number] - [id number] Implanted:Qty : 1 on 05/24/2023 by Abner Ramirez MD at [facility] Lead N/A: Atria [employer] 03/25/2026 2088TC/52 / [id number] / [id number] [employer] Assurity Mri [id number] 2 Chamber Is-1 Connector Thk6mm Pacemaker [id number] - [id number] - [id number] Implanted:Qty : 1 on 05/24/2023 by Abner Ramirez MD at [facility] Pacemaker Left: Chest Wall [employer] 09/22/2024 [id number] / [id number] / [id number] Multi Link- 0 Implanted: (Quantity not [...] Relevant to Health Maintenance Insurance AET MEDICARE [facility] MEDICARE Address: [facility] [id number] [place] [id number] [facility]LY [facility] MEDICARE AETNA MEDICARE Advance Directives For more information, please contact: [phone] * Full Code (Latest Code Status on File) Date Activated Date Inactivated Comments 05/24/2023 5:25 PM 05/25/2023 5:37 PM Care Teams Board Of Education Secretary Relationship Specialty Start Date End Date Link Hurley MD [address] [place] [address] [place] [address] PCP - General Internal Medicine 03/10/23
--- OUTSIDE RECORDS SUMMARY | 2025-02-06 15:43 | XMS_ITS | Encounter Summary ---
Author Organization [facility] Address [address] [place] [address] Phone Care Team Providers Care President Sales And Marketing Name Role Phone Shania Nelson MD Primary Care Provider Link Hurley MD Primary Care Provider [phone] Encounter Details Date Type Department Care Team [...] on file Legal Sex Male 2:15 PM PROCESSOR GRAIN Gender Identity Male 07/09/2021 2:55 PM PROCESSOR GRAIN Sexual Orientation Straight 07/09/2021 2: 55 PM PROCESSOR GRAIN documented as of this encounter Plan of [...] COVID: Suspected 07/22/2024 07/22/2024 07/22/2024 3:50 PM PROCESSOR GRAIN COVID19 07/22/2024 07/22/2024 08/01/2024 3:05 AM PROCESSOR GRAIN documented as of this encounter Care Teams President Sales And Marketing Relationship Specialty Start Date End Date Shania Nelson MD PCP - General Family Practice 12/28/17 03/09/23 Link Hurley MD [address] [place] [address] DR KILPAT[address] [place] [address] PCP - General Internal Medicine 03/10/23 documented as of this encounter
--- OUTSIDE RECORDS SUMMARY | 2025-02-06 15:43 | XMS_ITS | Clinical Summary ---
Author Organization [facility] Address [address] [facility] [place] [place] [address] Care Team Providers Care System Admin Name Role Phone Arthur Sumner MD Primary Care Provider Johnie Aaron MD Unavailable [phone] Source Comments [facility],non-[facility] Affiliates and Associated Physician Practices is amultiple site organization consisting of ambulatory clinics and hospital sitesin [place], [place], [place] and [place]. This disclosure is being madepursuant to the Care Everywhere program and may not contain all information available regarding this patient. Last updated 18.[facility] [employer] Allergies No known active allergies Medications * [...] chronic 04/15/2012 High cholesterol 04/15/2012 History of [place] (myocardial infarction) 04/15/2012 Family History Relation Name [...] on file Legal Sex Male 6:21 AM PALAEONTOLOGIST Gender Identity Not on file Sexual Orientation [...] MEDICARE AWV CALENDAR YEAR 2024 INFLUENZA VACCINE (#1) 2025 HEPATITIS B VACCINE Aged Out No [...] age to complete this topic Insurance [employer] [facility] MANAGED MEDICARE ADV [facility] MANAGED MEDICARE ADV Care Teams System Admin Relationship Specialty Start Date End Date Arthur Sumner MD [address] [place] [address] PCP - General Family Medicine 02/26/12 Johnie Aaron MD [address] [facility] [address] [place] [address] Otolaryngology 04/15/12
--- OUTSIDE RECORDS SUMMARY | 2025-02-06 15:43 | XMS_ITS | Continuity of Care Document ---
Author Organization [facility] Address [address] [address] [place] [address] Phone Care Team Providers Care Document Advisor Name Role Phone Ernesto Day MD, MD [...] PRE-SURG EYE MEASURES DOC'D Not medically necessary [facility] POSTOP FOLLOW-UP VISIT POSTOP FOLLOW-UP VISIT CATARACT SURG W/IOL, 1 STAGE DILATED FUNDUS EVAL DONE PRE-SURG EYE MEASURES DOC'D OFFICE/OUTPATIENT VISIT, EST OPHTHALMIC BIOMETRY OPHTHALMIC BIOMETRY SPECIAL EYE EXAM, SUBSEQUENT SPECIAL EYE EXAM, SUBSEQUENT Cataract Glasses Not medically necessary [facility] OFFICE/OUTPATIENT VISIT, EST VISUAL FUNCT STATUS ASSESS EYE EXAM, NEW PATIENT REFRACTION EYE EXAM, NEW PATIENT VISUAL FUNCT STATUS ASSESS REFRACTION Results Test Name Date and Time Measure Units Reference Range Abnormal Flag Status Commen ts Panel Description: [id number] Final Image Zeiss Result 1 Advance Directives Directive Yes / No Effective Date File Name No Information Encounters Encounter Description Practice Location Reason(s) For Visit Diagnoses Date Provider Providers Copied on Encounter OFFICE/OUTPA TIENT VISIT, EST [facility], [address], [id number], [place] tel:[phone] [facility] FBS OD (chief complaint)r etina (chief complaint) Dry eye syndrome of bilateral lacrimal glandsPresenc e of intraocular lensDiplopiaE piretinal membrane (ERM), bilateral 4 Barb Orozco. [address], [place], [place], [id number], [place]. tel:[phone] Referring Provider: Ernesto Day MD P, [address], [place], [address]. tel:[phone] OFFICE/OUTPA TIENT VISIT, EST [facility], [address] [place] [address], [id number], [place] tel:[phone] [facility] irritation OD (chief complaint) Dry eye syndrome of bilateral lacrimal glandsPresenc e of intraocular lensDiplopia 3 Barb Orozco. [address], [address], [place], [place], [id number], [place]. tel:[phone] Referring Provider: Ernesto Day MD P, [address], [place], [address]. tel:[phone] [facility], [address] [place] [address], [id number], tel:[phone] [facility] tearing and burning (chief complaint)b lurry vision (chief complaint) Lens replaced by other meansDiplopia Vitreous degeneration of both eyesDry eye syndrome of bilateral lacrimal glands 2 Jack Li. [address], [address], [place], [place], [id number], [place]. tel:[phone] Referring Provider: Kalpana Nelson MD, [address] [place], [address]. tel:[phone] OFFICE/OUTPA TIENT VISIT, EST [facility], [address] [place] [address], [id number], [place] tel:[phone] Oph Consult [facility] Office IOL check (chief complaint)D ry eyes (chief complaint) Vitreous degeneration of both eyesLens replaced by other meansDiplopia 6 Barb Orozco. [address], [place], [place], [id number], [place]. tel:[phone] Referring Provider: Ernesto Day MD P, [address], [place], [address]. tel:[phone] [facility], [address] [place] [address], [place], [place], [id number], [place] tel:[phone] [facility] No Information Oct 5 Garland Shepard. [address], [address], [place], [place], [id number], [place]. tel:[phone] Referring Provider: Devyn Yu, [address], [place], [address]. tel:[phone] OFFICE/OUTPA TIENT VISIT, EST [facility], [address] [place] [address], [place], [place], [id number], [place] tel:[phone] [facility] Yag evaluation (chief complaint)I OL check (chief complaint)D ry eyes (chief complaint) Lens replaced by other meansVitreous degeneration of both eyesAfter-cat aract obscuring vision, rightDry eye syndrome of bilateral lacrimal glands Apr- 5 Alfredo OD Amber. [address], [place], [place], [id number], [place]. tel:[phone] Referring Provider: Amber Fuentes OD, [address], [place], [address]. tel:[phone] OFFICE/OUTPA TIENT VISIT, EST [facility], [address] [place] [address], [id number], [place] tel:[phone] [facility] Vitreous degenerationL ens replaced by other means 3 Barb Orozco. [address], [address], [id number], [place]. tel:[phone] Referring Provider: Ernesto Yu, [address], [address]. tel:[phone] [facility], [address] [place] [address], [id number], tel:[phone] [facility] [place] No Information 2 Barb Orozco. [address], [address], [id number], [place]. tel:[phone] Referring Provider: Ernesto Yu, [address] [place] [address], [address]. tel:[phone] [facility], [address] [place] [address], [id number], tel:[phone] [facility] LEAN[facility] HIGG[facility] vision is improved OD (chief complaint) No Information 2 Barb Orozco. [address], [address] [place] [address], [id number], [place]. tel:[phone] Referring Provider: Ernesto Yu, [address] [place] [address], [address]. tel:[phone] [facility], [address] [place] [address], [id number], tel:[phone] OPH CONS[facility] LEANNE HIGGINS vision is improved OD (chief complaint) No Information 2 Barb Orozco. [address], [address], [place], [place], [id number], [place]. tel:[phone] Referring Provider: Ernesto Yu, [address] [place] [address], [address]. tel:[phone] [facility], [address] [place] [address], [id number], tel:[phone] [facility] No Information 2 Barb Orozco. [address], [address], [place], [place], [id number], [place]. tel:[phone] Referring Provider: Ernesto Yu, [address], [place], [address]. tel:[phone] [facility], [address] [place] [address], [id number], tel:[phone] [facility] No Information 2 Barb Orozco. [address], [address], [place], [place], [address], [place]. tel:[phone] Referring Provider: Ernesto Yu, [address], [place], [address]. tel:[phone] [facility], [address] [place] [address], [id number], tel:[phone] [facility]PH CON[facility] LEANNE HIGGINS vision is improved OS (chief complaint) No Information 2 Barb Orozco. [address], [address], [id number], [place]. tel:[phone] Referring Provider: Ernesto Yu, [address], [place], [address]. tel:[phone] [facility], [address] [place] [address], [id number], tel:[phone] OPH CONSULT LEANNE HIGGINS no complaints OS (chief complaint) No Information 2 Barb Orozco. [address], [address], [id number], [place]. tel:[phone] Referring Provider: Ernesto Yu, [address], [place], [address]. tel:[phone] [facility], [address] [place] [address], [id number], [place] tel:[phone] [facility] No Information 2 Barb Orozco. [address], [address], [place], [place], [address], [place]. tel:[phone] Referring Provider: Ernesto Yu, [address], [place], [address]. tel:[phone] OFFICE/OUTPA TIENT VISIT, EST [facility], [address] [place] [address], [id number], [place] tel:[phone] OPH CONSULT LEANNE HIGGINS Senile nuclear sclerosisVitr eous degeneration 2 Barb Orozco. [address], [address], [place], [place], [id number], [place]. tel:[phone] Referring Provider: Ernesto Yu, [address], [place], [address]. tel:[phone] OFFICE/OUTPA TIENT VISIT, EST [facility], [address] [place] [address], [place], [place], [id number], [place] tel:[phone] [facility] Office Myopia 2 Emmanuel Capellan. [address], [place], [place], [id number], [place]. tel:[phone] Referring Provider: Timi Benitez, [address], [place], [address]. tel:[phone] [facility], [address] [place] [address], [id number], [place] tel:[phone] [facility] LEANNE HIGGINS Senile nuclear sclerosis 1 Barb Orozco. [address], [place], [place], [address], [place]. tel:[phone] Family History Family Member Type Diagnosis Age At Onset Mother Problem (finding) glaucoma Problem No family histor y of Macular degeneration Payers Payer name Insurance type Covered constitution party ID Authoriza tisunil(s) Aet[employer] Medicare CI [id number] Social History Type Description Quantity Date Captured [...] he went and seen Dr. Winters @ [facility] and he was told he had a [...] he went and seen Dr. Winters @ [facility] and he was told he had a [...]
--- OUTSIDE RECORDS SUMMARY | 2025-02-06 15:43 | XMS_ITS | Clinical Summary ---
Author Organization [facility] Address [address] [facility] [place] [address] Phone Care Team Providers Care Window Glazier Name Role Phone Shania Nelson MD Primary [...] be different from the original. Higinio Silvestre MD--Tandem Operator ([facility] @ ) Polo Kingsley MD- [facility] ( [facility]) Problem Noted Date Diagnosed Date Supraventricular tachycardia 03/03/2023 PVC (premature ventricular contraction) 03/03/20 Dyspnea 03/03/2023 Fatigue 03/03/2023 Benign hypertension 12/23/2022 Mixed hyperlipidemia 12/23/2022 Atherosclerosis of [place] co ronary artery of [place] heart without angina pectoris 01/15/2022 Overview (01/15/2022): 1999 2 BMS to RCA, 1 BMS to Cx 12/02/20 [facility] cath- inf hypo, EF 55%. LAD-mild, dRCA 20-30%, CX- 90% at bifurc of large OM (and small LV br beyond)-stented OM and jailed distal Cx/LV br (unable to pass wire) 09/29/21 [place] cath: LM-mild-30%, LAD 50 mid, 50 mid-distal; Cx 30 mid 95 distal after large OM; OM2 stent patent; RCA prox, mid 40, 50%. mid-dist 90, 95%--stented 09/30/21 echo EF 55-60% Encounters Date Type Department Care Team Description 01/10/2025 External Device Data ST[facility] ABSTRACTION Provider, Abstract 01/10/2025 External Device Data STL ABSTRACTION Provider, Abstract 12/27/2024 11:00 AM CDT Office Visit [facility] [address] [place] [address] [place] [address] Polo Kingsley MD Atherosclerosis of [place] coronary artery of [place] heart without angina pectoris (Primary Dx); Benign [...] on file Legal Sex Male 8:10 AM TAPE MAKER Gender Identity Not on file Sexual Orientation [...] st Contact Info) Description 07/11/2025 11:15 AM TAPE MAKER Office Visit [facility] [address] [facility] [address] [place] [address] Polo Kingsley MD [address] [facility] [address] [place] [address] Health Maintenance Due Date Last Done Comments RSV VACCINE (60+ or ) (1 - 1-dose 75+ series) 2016 DTAP/TDAP/TD VACCINES (2 - Tdap) 11/27/2023 11/27/19 14 COVID-19 Vaccine (3 - season) 2024, 08/23/2020 INFLUENZA VACCINE (#1) 2025 05/24/2023, 2020 PNEUMOCOCCAL VACCINE 50+ YEARS Completed 05/22/2019 , 07/15/2015 ZOSTER VACCINE Completed 04/22/2020, 05/22/2019 Medical Devices Implanted Type Area Senior Nurse Manager Device Identifier Shelf Expiration Date Model / Serial / Lot Stent Synergy Xd [id number] Evrs ut [id number] - [id number] Implanted:Qty : 1 on 01/23/2022 at [facility] Stent N/A: Coronary [employer] FRANCISCO 07/10/2023 [id number] / / [id number] Insurance [employer] PPO [facility] Advance Directives For more information, please contact: [phone] * Full Code (Latest Code Status on File) Date Activated Date Inactivated Comments 01/23/2022 6:55 AM 01/23/2022 3:23 PM Care Teams Window Glazier Relationship Specialty Start Date End Date Shania Nelson MD [address] [place] [address] PCP - General Family Practice 09/24/21
--- OUTSIDE RECORDS SUMMARY | 2025-02-06 15:43 | XMS_ITS | Clinical Summary ---
Author Organization [facility] [address] Address [address] [place] [address] Care Team Providers Care Fagot Maker Name Role Phone Link Hurley MD Primary Care Provider [phone] Allergies Active Allergy Reactions Criticality Noted Date [...] 07/15/2023 Assessment & Plan (06/29/2024 11:27 AM PROCESS HELPER): -Dual chamber pacemaker is functioning appropriately as programmed -Lead impedances, sensing, and thresholds are stable -No programming changes -Continue remote monitoring quarterly -Follow up in 1 year for device check Assessment & Plan (07/15/2023 2:29 PM PROCESS HELPER): Dual chamber pacemaker is functioning appropriately as [...] 05/03/2023 Assessment & Plan (06/29/2024 12:01 PM PROCESS HELPER): -Symptomatic sinus node dysfunction s/p dual chamber pacemaker 05/24/2023 -Appropriate device function, atrial paced 61%. Assessment & Plan (07/15/2023 2:30 PM PROCESS HELPER): Symptomatic sinus node dysfunction s/p dual chamber [...] 05/15/2021 Assessment & Plan (06/29/2024 12:02 PM PROCESS HELPER): -AVNRT s/p successful ablation in 2020, Dr [...] with stent to the mid LAD in [place], [place] Fatigue and chest pain have resolved post stent Bradycardia longstanding. Chronic LBBB. If symptoms return, may consider evaluation for chronotropic incompetence, but at this time he reports appropriate HR elevation with activity and no symptoms of near syncope or syncope S/P coronary artery stent placement 01/20/2017 High cholesterol 04/15/2012 History of [place] (myocardial infarction) 04/15/2012 Sinusitis, chronic 04/15/2012 Immunizations [...] on file Legal Sex Male 2:15 PM PROCESS HELPER Gender Identity Male 07/09/2021 2:55 PM PROCESS HELPER Sexual Orientation Straight 07/09/2021 2: 55 PM PROCESS HELPER Obstetrics History Last Filed Vital Signs Vital Sign Reading Time Taken Comments Blood Pressure 138/72 07/22/2024 3:42 PM PROCESS HELPER Pulse 59 07/22/2024 3:42 PM PROCESS HELPER Temperature 37.2 C (98.9 F) 07/22/2024 3:42 PM PROCESS HELPER Respiratory Rate 20 07/22/2024 3:42 PM PROCESS HELPER Oxygen Saturation 96% 07/22/2024 3:42 PM PROCESS HELPER Inhaled Oxygen Concentration - - Weight 89.8 kg (198 lb) 07/22/2024 3:42 PM PROCESS HELPER Height 175.3 cm (5' 9) 06/29/2024 11:18 AM PROCESS HELPER Body Mass Index 29.24 06/29/2024 11:18 AM PROCESS HELPER Plan of Treatment Health Maintenance Due Date [...] Completed 07/31/2021 Medical Devices Implanted Type Area Pleat Taper Device Identifier Shelf Expiration Date Model / Serial / Lot Anew Oncology [id number] System 6-12fr Mvp Venous Closure Vascade - [id number] Implanted:Qty : 1 on 07/02/2021 by Abner Ramirez MD at [facility] Collagen [employer] 03/12/2023 800-612C- [id number] / / [id number] 30C [employer] [id number] System 6-12fr Mvp Venous Closure Vascade - [id number] Implanted:Qty : 1 on 07/02/2021 by Abner Ramirez MD at [facility] Collagen [employer] 03/12/2023 800-612C- 10U / / [id number] 30C [employer] [id number] Device Closure Vascade Od5 Fr Femoral Artery - [id number] Implanted:Qty : 1 on 07/02/2021 by Abner Ramirez MD at [facility] Collagen [employer] 04/14/2023 700-500DX -05U / / [id number] [employer] [id number] Device Closure Vascade Od5 Fr Femoral Artery - [id number] Implanted:Qty : 1 on 07/02/2021 by Abner Ramirez MD at [facility] Collagen [employer] 04/14/2023 700-500DX -05U / / [id number] [employer] Tendril Sts 6fr 58cm Is-1 Connector Active Fixation Bipolar Soft 2087tc/58 - [id number] - [id number] Implanted:Qty : 1 on 05/24/2023 by Abner Ramirez MD at [facility] Lead Right: Ventricle [employer] 04/24/2026 2088TC/58 / [id number] / [id number] [employer] Tendril Sts 6fr 52cm Is-1 Connector Active Fixation Bipolar Soft 2087tc/52 - [id number] - [id number] Implanted:Qty : 1 on 05/24/2023 by Abner Ramirez MD at [facility] Lead N/A: Atria [employer] 03/25/2026 2088TC/52 / [id number] / [id number] [employer] Assurity Mri [id number] 2 Chamber Is-1 Connector Thk6mm Pacemaker [id number] - [id number] - [id number] Implanted:Qty : 1 on 05/24/2023 by Abner Ramirez MD at [facility] Pacemaker Left: Chest Wall [employer] 09/22/2024 [id number] / [id number] / [id number] Multi Link- 0 Implanted: (Quantity not [...] Most Recently Relevant to Health Maintenance Insurance [facility] MEDICARE [facility] MEDICARE [employer] MEDICARE Advance Directives For more information, please contact: [phone] * Full Code (Latest Code Status on File) Date Activated Date Inactivated Comments 05/24/2023 5:25 PM 05/25/2023 5:37 PM Care Teams Fagot Maker Relationship Specialty Start Date End Date Link Hurley MD [address] [place] [address] [place] [address] PCP - General Internal Medicine 03/10/23
--- OUTSIDE RECORDS SUMMARY | 2025-02-06 15:43 | XMS_ITS | Encounter Summary ---
Author Organization [facility] Address [address] [place] [address] Care Team Providers Care Straightedge Worker Name Role Phone Arthur Sumner MD Primary Care Provider [phone] Johnie Aaron MD Unavailable [phone] Encounter Details Date Type Department Care Team (Late st Contact Info) Description 03/04/2022 Lab Requisition [facility] [address], [facility] [place] [address] Jairo Jauregui MD [address] [place] [address] Social History Tobacco Use Types Packs/Day Years Used Date Smoking Tobacco: Former Smokeless Tobacco: Never Alcohol Use Standard Drinks/Week Comments Yes 0 (1 standard drink = 0.6 oz pur e alcohol) Occasionally Sex and Gender Information Value Date Recorded Sex Assigned at Not on file 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 Jar 0. 2 3:55 PM CDT DERMATOPATHOLOGY [...] characteristic determined by the Dermatopathology Laboratory at [facility], directed by Dr. Xiomara Laughlin. These tests need not be, and therefore are not, approved by the [place] Food and Drug Administration. The tests are used for clinical purposes. Billing Codes Specimen Charges Stain Charges 24311 1 2 3:55 PM CDT DERMATOPATHOLOGY LABORATORY Embedded Images 2 3:55 PM CDT DERMATOPATHOLOGY LABORATORY Pathology/Cytolo gy TISSUE SPECIMEN FROM SKIN / Unknown 03/03/2022 3:33 AM CDT 03/04/2022 11:11 AM CDT Jairo Jauregui MD LAB - PATHOLOGY/CYTOLOGY ORD ERABLES Final Result DERMATOPATHOLOGY LABORATORY [facility] - Department of Dermatology [facility] Medicine [address] [place] [address], [address] [phone] documented in this encounter Visit Diagnoses Not on filedocumented in this encounter Care Teams Straightedge Worker Relationship Specialty Start Date End Date Arthur Sumner MD [address] [place] [id number] PCP - General Family Medicine 02/26/12 Johnie Aaron MD [address] [place] [id number] Otolaryngology 04/15/12 documented as of this encounter
--- OUTSIDE RECORDS SUMMARY | 2025-02-06 15:44 | XMS_ITS | Data Portability ---
Author Organization [facility] Address [address] [place] [address] Care Team Providers Care Mason Foreman/Superintendant Name Role Phone DEMETRI SETHI Primary Care Provider REYNA PRUETT [employer] Sales Executive CARI ANNA OTHER Assessment Encounter Date Assessment Date Assessment LastModified by Organization Details LastModified Time 11/18/2022 11/18/2022 Evaluation and assessment performed by Sandra MATHEW [email or web address] Not available 11/17/2022 16:22:09 12/03/2022 12/03/2022 Evaluation and assessment performed by Sandra MATHEW [email or web address] Not available 12/03/2022 08:45:33 09/08/2023 09/08/2023 Evaluation [...] recorded. Imaging electroca rdiogram 2023 024 [email or web address] [facility] In House Orders - DO Not Merge DO Not Delete, [address], [address], [place], [address], 10/04/2023 10:47:21 political geographer 2022 023 [email or web address] [facility] In House Orders - DO Not Merge DO Not Delete, [address], [address], [place], [address], 12/04/2022 14:09:47 electroca rdiogram 2022 023 [email or web address] [facility] In House Orders - DO Not Merge DO Not Delete, [address], [address], [place], [address], 11/19/2022 08:52:57 Medication Orders None recorded. Patient TargetsNo targets recorded. Patient Instructions Encounter Date Encounter Id Patient Instructions Last Modified By Organization Details Last Modified Time 11/18/2022 [id number] supraventricular tachycardia: care instructions [email or web address] Not available 11/18/2022 14:04:32 12/03/2022 [id number] supraventricular tachycardia: care instructions [email or web address] Not available 12/03/2022 14:11:43 dizziness: care instructions [email or web address] Not available 12/03/2022 14:11:43 08/11/2023 [id number] supraventricular tachycardia: care instructions Not available 08/11/2023 11:39:08 dizziness: care instructions [email or web address] Not available 08/11/2023 11:39:08 09/08/2023 [id number] supraventricular tachycardia: care instructions [email or web address] Not available 09/08/2023 12:03:12 dizziness: care instructions [email or web address] Not available 09/08/2023 12:03:12 08/31/2024 [id number] supraventricular tachycardia: care instructions Not available 08/31/2024 11:55:37 dizziness: care instructions Not available 08/31/2024 11:55:37 Reason for Referral None Reported. Results Created Date Observation Date Name Description Value Unit Range Abnormal Flag Note LastModifiedBy Organization Detail LastModifiedTime 08/27/19 24 08/28/2023 LIPID PANEL , STAND LILIANA cholesterol, total 121 mg/dL <200 normal Not Available [facility] [address], [place], [address], 08/28/2023 03:43:04 08/27/19 24 08/28/2023 LIPID PANEL , STAND LILIANA HDL cholesterol 54 mg/dL > or = 40 normal Not Available [facility] [address], [place], [address], 08/28/2023 03:43:04 08/27/19 24 08/28/2023 LIPID PANEL , STAND LILIANA triglyceride s 76 mg/dL <150 normal Not Available [facility] [address], [place], [address], 08/28/2023 03:43:04 08/27/19 24 08/28/2023 LIPID PANEL [...] lated using the Angella n-Hop kins calcu latdoyn n, which is a valid ated novel metho d shalinii ding brett r accur acy than the Fried estuardo equat ion in the estim ation of LDL-C . Angella munoz SS et al. RAJIV. 2013; 310(1 9): 2061- 2068 (http ://ed ucati on.Qu Azeem moseleyShoot it!s. com/f aq/FA Q164) Not Available [facility] [address], [place], [address], 08/28/2023 03:43:04 08/27/19 24 08/28/2023 LIPID PANEL , STAND LILIANA chol/HDLC ratio 2.2 (calc ) <5.0 normal Not Available [facility] [address], [place], [address], 08/28/2023 03:43:04 08/27/19 24 08/28/2023 LIPID PANEL , STAND LILIANA non HDL cholesterol 67 mg/dL _(deborah c) <130 normal For patie nts with diabe david plus 1 major ASCVD risk facto r, treat ing to a non-H DL-C goal of <100 mg/dL (LDL- C of <70 mg/dL ) is consi dered a thera peuti c optio n. Not Available [facility] [address], [place], [address], 08/28/2023 03:43:04 11/19/19 23 11/18/2022 elect rocar diogr am No observ ation record ed. [facility] [employer] In House Orders - DO Not Merge DO Not Delete [address], [place], [address], 11/18/2022 12:21:29 12/04/19 23 11/26/2022 cardi ac [...] Details Recorded Time Disorder of carotid artery 587024075 Active Myra david null, [place] [employer] 2 12:43:17 Essential hypertension 69636315 Active Myra david null, [facility] [facility] 2 12:43:44 Dyslipidemia 484567837 Active Myra david null, [place] [employer] 2 12:43:54 Fatigue 60287168 Active Myra david null, [facility] 2 12:44:14 Chest pain 51855400 Active 2021 Colleen Alexa null, [facility] 2 08:20:42 Coronary arterioscleros is 95851308 Active 2021 Colleen Alexa null, [facility] 2 08:20:50 Stented coronary artery 034331524 Active 2021 Colleen Alexa null, [facility] 2 08:20:56 Supraventricul ar tachycardia 0390480 Active 2021 Colleen Alexa null, [facility] 2 08:21:21 Paroxysmal supraventricul ar tachycardia 31535148 Active 2022 Berhane Olvera null, [facility] 3 16:22:11 Dizziness 350840631 Active 2023 Berhane Olvera null, [facility] 4 14:33:25 Problem Notes None recorded. Procedures Surgical History Date Name Laterality Status Provider Name and Address Organization Details Recorded Time 11/27/19 23 Cardiac Catheterization completed RICK Gillis [facility] [address],[address], [place], [address], [facility] [employer] [facility] 12/03/2022 12:35:55 09/30/19 22 Cardiac Catheterization completed RICK Gillis [facility] [address] [address], [place], [address], [facility] [employer] [facility] 2021 10:19:34 11/24/19 21 [facility] 2021 08:28:56 07/26/19 00 Cardiac Catheterization completed Colleen Alexa [facility] 2021 08:28:52 [facility] 2021 08:22:16 Imaging Results None recorded. Procedure Notes None recorded. Medical Equipment None Reported. Allergies Allergen ID Allergen Name Allergen Category Reaction Reaction Severity Criticality Documentation Date Start Date Code Code System Note Provider Name and Address Organization Details Recorded Time 82671 Ceftin medicatio n Not available Not available Not available 10/08/2021 89700 6 RxNorm Myra Gopi wiggins, [place] - [facility] 2 12:41:59 Medications Name Sig Start Date [...] bromide 21 mcg (0.03 %) nasal spray [place] 2 sprays twice a day by intranasa [...] azelastine 205.5 mcg (0.15 %) nasal spray [place] 1 spray twice a day by intranasa [...] Not Available No t Available Lacto no.37-B.ani vlaente,stephenu m QD active Not Available Not Available Not Available Vitals Date Recorded Body height Body mass index (BMI) Body weight Heart rate Oxygen saturation Oxygen saturation in Arterial blood by Pulse oximetry Systolic And Diastolic Provider Name and Address Organization Details Last Updated DateTime 4 175.26 cm 27.7 kg/m2 13978.2 1 g 76 /min 96 % 96 % 138/85 mm[Hg] Berhane Olvera [facility] 4 11:05:28 Date Recorded Body height Body mass index (BMI) Body weight Heart rate Oxygen saturation Oxygen saturation in Arterial blood by Pulse oximetry Respiratory rate Systolic And Diastolic Provider Name and Address Organization Details Last Updated DateTime 5 175.26 cm 28.9 kg/m2 35056.3 9 g 66 /min 96 % 96 % 18 /min 132/70 mm[Hg] Joy Smith [facility] 5 11:35:37 Date Recorded Body height Provider Name an d Address Organization Details Last Updated DateTime 09/08/2023 175.26 cm Pilar Prieto [place] [facility] 09/08/2023 11:43:21 Date Recorded Body height Body mass index (BMI) Body weight Heart rate Oxygen saturation Oxygen saturation in Arterial blood by Pulse oximetry Respiratory rate Systolic And Diastolic Provider Name and Address Organization Details Last Updated DateTime 3 175.26 cm 27.2 kg/m2 87099 g 52 /min 98 % 98 % 16 /min 120/60 mm[Hg] Berhane Olvera [facility] 3 11:11:17 Date Recorded Body height Body mass index (BMI) Body weight Respiratory rate Oxygen saturation Oxygen saturation in Arterial blood by Pulse oximetry Heart rate Systolic And Diastolic Provider Name and Address Organization Details Last Updated DateTime 3 175.26 cm 26.6 kg/m2 46148.6 3 g 17 /min 97 % 97 % 58 /min 120/72 mm[Hg] Pilar Prieto [facility] 3 13:48:04 Social History Question Answer Notes LastModified by Organizat ion Details LastModified Time Tobacco Smoking Status Former Sm[facility] 2021 09:36:27 Do You Have An Advance Directive? Yes [email or web address] Information not available 2021 Is Blood Transfusion Acceptable In An Emergency? Yes [email or web address] Information not available 2021 What Is Your Level Of Caffeine Consumption? Moderate 1 Cup Daily. 12oz. [email or web address] Information not available 11/18/2022 What Is Your Code Status? Full Code [email or web address] Information not available 2021 In The 14 Days Before Symptom Onset, Have You Had Close Contact With A Laboratory-confir med COVID-19 While That Case Was Ill? No [email or web address] Information not available 2021 In The 14 Days Before Symptom Onset, Have You Had Close Contact With A Person Who Is Under Investigation For COVID-19 While That Person Was Ill? No [email or web address] Information not available 2021 Have You Been To An Area Known To Be High Risk For COVID-19? No [email or web address] Information not available 2021 What Type Of Diet Are You Following? REGULAR [email or web address] Information not available 2021 Do You Have A Directive To Physicians? Yes [email or web address] Information not available 2021 How Many Times Per Week Do You Exercise? 1-2 Times Per Week Walking Some [email or web address] Information not available 2021 When Did You Quit Smoking? 16+yearssinc elastcigaret te [email or web address] Information not available 2021 Do You Have A Medical Power Of Finishing Room Supervisor? No [email or web address] Information not available 2021 What Was The Date Of Your Most Recent Tobacco Screening? 08/31/2024 Information not available 08/31/2024 Do You Have An Out Of Hospital DNR? No Information not available 2021 What Is Your Relationship Status? [email or web address] Information not available 2021 At What Age Did You Start Smoking Tobacco? 19 [email or web address] Information not available 2021 Do You Have Any Dietary Restrictions? No [email or web address] Information not available 2021 Sex: Male Functional Status Question Answer Note LastModified by Organizat ion Details LastModified Time Do you use any illicit or recreational drugs? No [email or web address] Information not available 2021 Do you or have you ever used any other forms of tobacco or nicotine? No Information not available 2021 What is your level of alcohol consumption? None [email or web address] Information not available 11/18/2022 Are you currently employed? No [employer] [facility] [employer] [email or web address] Information not available 10/08/2021 What is your exercise level? None [email or web address] Information not available 2021 Mental Status None recorded. Family History Relationship Description Onset Age of this Age Resolved Age Notes LastModified by Organization Details LastModified Time Unspecified Relation Myocardial infarction [email or web address] Not available 09/23 12:50:31 Medical History Condition Response Coronary Artery Disease Dyslipidemia Y GERD Y Arrhythmia Echocardiograms Y Cardiac Cath Y Chest X-Ray Y Hypertension Y Immunizations Vaccine Type Date Status Note Provider Nam e and Address Organization Details Recorded Time Influenza, split virus, quadrivalent, preservative completed YOLIE Poole - [facility], [facility] 2021 09:36:59 Past Encounters Encounter ID Performer Location Encounter Start Date Encounter Closed Date Diagnosis/Indication Diagnosis SNOMED-CT Code Diagnosis ICD10 Code Diagnosis Note [id number] RICK Gillis [place] [place] [facility] [address],[facility] [address] [place] [address] 2021 09:15:14 2021 10:42:26 Coronary arteriosclerosis 13013899 I25.10 - [place] with 2 bare-metal stents to the RCA [...] LDL <70 mg/dL Stented co ronary artery 536070573 Z95.5 see above notes Essential hypertension 29562068 I10 BP in good controlcon tinue lisinopril -needs periodic BP montioring Dyslipidemia 711799159 E 78.5 [id number] Alvaro Blackmon MD [place] [place] [facility] [address] [address] 11/10/2021 11:07:09 11/11/2021 13:23:19 Coronary arteriosclerosis 38604491 I25.10 November 102Corona ry artery disease: The patient feels better, without significan t chest pain or dyspnea over the past several weeks. He is compliant with his dual antiplatel et therapy and high intensity statin. He is about to start cardiac rehabilita tion in the next several days.[place] of [place]. - return to the office in July 2022. [place] 2 bare-metal stents to the RCA [...] LDL <70 mg/dL Stented co ronary artery 516485632 Z95.5 see above notes Essential hypertension 77491485 I10 November 10lood pressure is well controlled . Continue lisinopril . BP in good controlcon tinue lisinopril -needs periodic BP montioring Dyslipidemia 570256632 E 78.5 November 102Contin ue rosuvastat in - Will consider increasing the dose during the next visit. [id number] RICK Gillis [place] [place] [facility] [address] [place] [address] 08/12/2022 11:08:35 08/12/2022 11:47:13 Coronary arteriosclerosis 24885483 I25.10 August 12, 2022:Subse quent PCI of mid LAD January of 2022; after which symptoms did not improve, although he does not report having chest pain any longer, which he was reporting to me in October of 2021.Will request records from [facility] in [place], [place] angina, fatigue symptoms improved-n eeds continued [...] to the office in July 2022. - [place] 2 bare-metal stents to the RCA and 1 bare-metal stent to the left circumflex in 1999 - Cardiac catheteriz ation with drug-silas ng stent to the left circumflex 11/2020 -Cardiac catheteriz ation 09/29/2021 which revealed severe distal RCA and moderate LAD disease - underwent 2 LEANNE (distal RCA and mid RCA Xience Skypoint 3.0 mm x 38 mm; distal RCA Xience Skypoint 3.0 mm x 15 mm)In [place] he did undergo subsequent PCI to the-refer to cardiac rehab-cont inue ASA/clopid ogrel; did not tolerate Brilinta due to side effect of dyspnea.-t arget LDL <70 mg/dL Essential hypertension 36197701 I10 August 12, 2022:As far as he knows, blood pressure has been in good range.Apri l lood pressure is well controlled . Continue lisinopril . BP in good controlcon tinue lisinopril -needs periodic BP montioring Dyslipidemia 315605562 E 78.5 August 12, 2022He does not recall last time he had lab work done; will request records as noted above; will review and let him know if we need any new labs prior to next visit. November 10ontin ue rosuvastat in - Will consider increasing the dose during the next visit. Stented co ronary artery 591351367 Z95.5 see above notes Paroxysmal supraventricular tachycardia 12719651 I47.1 ablation done at [facility] in [place], [place] in 2021-no recurrent palpitatio ns; had follow up in the fall of 2021 (history from patient is vague)-had ECG at that time; will need to request records. [id number] Alvaro Blackmon MD [facility] [place] [facility] [address] [place] [address],[facility] [address] [place] [address] 11/18/2022 11:00:52 11/18/2022 15:09:11 Coronary arteriosclerosis 52424475 I25.10 November 18, 2022The patient has been [...] in October of 2021.Will request records from [facility] in [place], [place] ang[place], fatigue symptoms improved-n eeds continued [...] to the office in July 2022. - [place] 2 bare-metal stents to the RCA [...] Xience Skypoint 3.0 mm x 15 mm)In [place] he did undergo subsequent PCI to the-refer to cardiac rehab-cont inue ASA/clopid ogrel; did not tolerate Brilinta due to side effect of dyspnea.-t arget LDL <70 mg/dL Essential hypertension 99810540 I10 November 18, 2022 hypertensi on: Blood pressure appears to be relatively well controlled at this time. Continue lisinopril at the current dose. Dyslipidemia 618317689 E 78.5 November 18, 2022 dyslipidem ia: Patient has a history of coronary artery disease and elevated lipids. As mentioned previously , I recommend that we consider increasing the rosuvastat in to 20 mg p.o. nightly. Stented co ronary artery 964288174 Z95.5 see above notes Paroxysmal supraventricular tachycardia 44587645 I47.1 ablation done at [facility] in [place], [place] in 2021-no recurrent palpitatio ns; had follow up in the fall of 2021 (history from patient is vague)-had ECG at that time; will need to request records. [id number] RICK Gillis [place] [place] [facility] [address] [place] [address] 12/03/2022 13:35:09 12/03/2022 14:15:46 Coronary arteriosclerosis 14425775 I25.10 November,s/p LEANNE to mid LADhe continues [...] in October of 2021.Will request records from [facility] in [place], [place] angina, fatigue symptoms improved-n eeds continued [...] to the office in July 2022. - [place] 2 bare-metal stents to the RCA [...] Xience Skypoint 3.0 mm x 15 mm)In [place] he did undergo subsequent PCI to the-refer to cardiac rehab-cont inue ASA/clopid ogrel; did not tolerate Brilinta due to side effect of dyspnea.-t arget LDL <70 mg/dL Essential hypertension 60343703 I10 November 18, 2022 hypertensi on: Blood pressure appears to be relatively well controlled at this time. Continue lisinopril at the current dose. Dyslipidemia 399676653 E 78.5 November 18, 2022 dyslipidem ia: Patient has a history of coronary artery disease and elevated lipids. As mentioned previously , I recommend that we consider increasing the rosuvastat in to 20 mg p.o. nightly. Stented co ronary artery 417088162 Z95.5 see above notes Paroxysmal supraventricular tachycardia 06645534 I47.1 ablation done at [facility] in [place], [place] in 2021-no recurrent palpitatio ns; had follow up in the fall of 2021 (history from patient is vague)-had ECG at that time; will need to request records. Dizziness 949252528 R42 will have him wear event monitor to see if he has issues with bradycardi a/high degree AVB Fatigue 56311932 R53.83 [id number] Alvaro Blackmon MD [facility] [place] [facility] [address] [place] [address],[facility] [address] [place] [address] 08/11/2023 11:01:04 08/12/2023 12:36:23 Coronary arteriosclerosis 64920529 I25.10 August 11, 2023No significan t plaints [...] in October of 2021.Will request records from [facility] in [place], [place] angina, fatigue symptoms improved-n eeds continued [...] to the office in July 2022. - [place] 2 bare-metal stents to the RCA [...] Xience Skypoint 3.0 mm x 15 mm)In [place] he did undergo subsequent PCI to the-refer to cardiac rehab-cont inue ASA/clopid ogrel; did not tolerate Brilinta due to side effect of dyspnea.-t arget LDL <70 mg/dL Essential hypertension 77411206 I10 August 11, 2023The patient's blood pressure [...] Continue lisinopril at the current dose. Dyslipidemia 210083125 E 78.5 August 11, 2023 dyslipidem ia: Patient has a history of coronary artery disease and elevated lipids.As mentioned previously , we will need to check his current lipid levels and adjust the medication s accordingl y. Stented co ronary artery 295425538 Z95.5 see above notes Paroxysmal supraventricular tachycardia 08287584 I47.10 ablation done at [facility] in [place], [place] in 2021-no recurrent palpitatio ns; had follow up in the fall of 2021 (history from patient is vague)-had ECG at that time; will need to request records. Dizziness 977010770 R42 will have him wear event monitor to see if he has issues with bradycardi a/high degree AVB Fatigue 50329224 R53.83 [id number] RICK Gillis [facility] [place] [facility] [address] [place] [address] 09/08/2023 11:43:08 09/08/2023 12:04:46 Coronary arteriosclerosis 14534504 I25.10 09/08/2023: Lipid panel 08/27/2023: TC 121, [...] in October of 2021.Will request records from [facility] in [place], [place] angina, fatigue symptoms improved-n eeds continued [...] to the office in July 2022. - [place] 2 bare[place]metal stents to the RCA [...] Xience Skypoint 3.0 mm x 15 mm)In [place] he did undergo subsequent PCI to the-refer to cardiac rehab-cont inue ASA/clopid ogrel; did not tolerate Brilinta due to side effect of dyspnea.-t arget LDL <70 mg/dL Essential hypertension 98931234 I10 09/09/2023: Reports adequate blood pressure control [...] Continue lisinopril at the current dose. Dyslipidemia 697002277 E 78.5 August 11, 2023 dyslipidem ia: Patient has a history of coronary artery disease and elevated lipids.As mentioned previously , we will need to check his current lipid levels and adjust the medication s accordingl y. Stented co ronary artery 252582689 Z95.5 see above notes Paroxysmal supraventricular tachycardia 68075171 I47.10 ablation done at [facility] in [place], [place] in 2021-no recurrent palpitatio ns; had follow up in the fall of 2021 (history from patient is vague)-had ECG at that time; will need to request records. Dizziness 807153593 R42 [place] EP placed PPM Dual Chamber; uncertain what type and I do not see in notes from Dr. Stern of [facility] Fatigue 91721613 R53.83 improved [id number] Cipriano Story PA-C [place] [place] [facility] [address] [place] [address],[address] [place] [address] 08/31/2024 11:21:40 09/01/2024 10:27:02 Coronary arteriosclerosis 34184466 I25.10 08/31/2024:H istory of coronary stenting/a ngioplasty [...] to 20 mg p.o. nightly. Essential hypertension 27901483 I10 08/31/2024:B P acceptable in office today [...] Continue lisinopril at the current dose. Dyslipidemia 851925324 E 78.5 08/31/2024:L DL well controlled Continue statin therapy August 11, 2023 dyslipidem ia: Patient has a history of coronary artery disease and elevated lipids.As mentioned previously , we will need to check his current lipid levels and adjust the medication s accordingl y. Stented co ronary artery 693615392 Z95.5 see above notes Paroxysmal supraventricular tachycardia 32411620 I47.10 ablation done at [facility] in [place], [place] in 2021 Dizziness 366705659 R42 [place] EP placed PPM Dual Chamber; uncertain what type and I do not see in notes from Dr. Stern of [facility] Fatigue 76694990 R53.83 improved Sick sinus syndrome 3608 3008 [...] Name 08/27/2024 2 *SELF PAY* Oral Bernal [id number] A Oral Bernal 08/27/2024 1 [place] Oral Bernal [id number] Oral Bernal 08/28/2024 1 [employer] (PPO) [id number] Oral Bernal [id number] Oral Bernal 08/27/2024 1 [facility] (MEDICARE REPLACEMENT/A DVANTAGE - PPO) [id number] Oral Bernal [id number] Oral Bernal Notes Date Note Type Note Provider Name and Address Organization Details Recorded Time 11/18/2022 text/html Mr. Gabe pollard ro today for a routine 4 month follow up consult. 'Needs ECG. 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 Alvaro Blackmon MD [address] [facility],[address], [place], [phone], [facility] 11/18/2022 14:04:52 12/03/2022 text/html Mr. Gabe pollard ro today to follow up to recent catherization [...] reported since last visit. RICK Gillis [address] [place] [address],[address], [place], [phone], [facility] [employer] 12/03/2022 14:14:14 08/11/2023 text/html Mr. Gabe pollard [...] since last visit. Alvaro Blackmon MD [address] [place] [address],[address], [place], [address], [facility] [employer] 08/11/2023 11:40:06 09/08/2023 text/html Mr. Bernal gives consent to discuss recent labs.Compliant with [employer].States feeling well overall, no cardiac complaints at the moment.Stays active by walking, no cardiac limitations. Currently denies having any chest pain, shortness of breath, palpitations, edema or syncope.No recent hospitalizations or cardiac testing reported since last visit. Alvaro Blackmon MD [address] [place] [address],[address], [place], [phone], [facility] [employer] 09/08/2023 17:11:26 08/31/2024 text/html Mr. Gabe pollard [...] since last visit. Alvaro Blackmon MD [address] [place] [address],[address], [place], [address], [facility] - [facility] 09/05/2024 21:31:54
== END 2025-02-06 15:39 | disposition home or self-care (01) ==
PROVIDERS: Visit Provider Internal Medicine Pulmonary Disease
DX: R06.02 Shortness of breath (principal); Z95.0 Presence of cardiac pacemaker
CPT/HCPCS: 71046